=== PATIENT | male | born 1990 | race Caucasian/White ===

== ENCOUNTER 2020-11-10 08:57 | Emergency (ER) | payer MEDICAID, SELFPAY ==
[2020-11-10] VITALS (9 sets, daily range): BP systolic 110–172; BP diastolic 68–100; PULSE 55–92; RESP 12–23; TEMP 35.9–36.9; O2SAT 95–100; BMI 23.5
--- NOTE | ~2020-11-10 | CT_ITS ---
EXAMINATION: CT HEAD WITHOUT CONTRAST CLINICAL INFORMATION: AMS. COMPARISON: None TECHNIQUE: Contiguous axial imaging was performed from the skull base to vertex without intravenous administration of contrast. This CT examination was performed using dose optimization techniques as appropriate, variously including the following: *Automated exposure control *Adjustment of mA and/or kV according to patient size (this includes techniques or standardized protocols for targeted exams where dose is matched to indication/reason for exam; i.e. extremities or head) *Use of iterative reconstruction technique DLP: 745 mGy-cm FINDINGS: There is no evidence of acute intracranial hemorrhage or territorial infarction. No abnormal mass effect or midline shift is seen. [place] to white matter differentiation is well preserved. No extra-axial fluid collections are identified. The ventricles are normal in size. There is no abnormal attenuation within the brain parenchyma. The osseous structures and soft tissues are normal. The mastoid air cells and visualized portions of the paranasal sinuses are well aerated. CT/CT head/brain wo con IMPRESSION: No acute intracranial process seen.
--- NOTE | 2020-11-10 09:01 | ED_ITS ---
HPI - Altered Mental Status General Chief Complaint: General Medical Stated Complaint: altered mental status Time Seen by Provider: 11/10/20 09:01 Source: EMS Mode of arrival: EMS Limitations: altered mental status History of Present Illness HPI narrative: found him outside on a park bench with a crack pipe, significant movements, given 320mg IM ketamine for these movements not aggression MD complaint: altered mental status and intoxication Onset (ago): unknown Severity: moderate Consistency of symptoms: unknown Context: drug abuse Associated symptoms: denies other symptoms Treatments prior to arrival: other (IM ketamine 320mg) Related Data Allergies Allergy/AdvReac Type Severity Reaction Status Date / Time No Known Allergies Allergy Unverified 12/03/19 17:24 Review of Systems Review of Systems: ROS unable to be obtained due to altered mental status PMFSH Past Medical History Source: unable to obtain (AMS) Social History Social History (Updated 11/10/20 @ 09:17 by Khushbu Flynn DO) Patient Tobacco Use Status: Tobacco use Unknown Substance Use Type: Crack/Cocaine Advance Directives: No Advance Directives Information Provided: No Physical Exam Vital Signs: Vital Signs: Last Vital Signs Temp 96.6 F L 11/10/20 09:11 Pulse 55 11/10/20 12:23 Resp 15 11/10/20 12:23 BP 110/68 11/10/20 10:11 Pulse Ox 98 11/10/20 10:11 Body Mass Index 23.5 Appearance: Somnolent, disoriented. responds to loud verbal and tactile stimuli. Mild acute distress. Eyes: Pupils equal, round and reactive to light. 4mm ENT: Pharynx normal. Atraumatic Neck: Normal inspection. Neck supple. CVS: tachycardic. Pulses normal. Respiratory: No respiratory distress. Breath sounds normal. Abdomen: Soft and nontender. no trauma Skin: Skin warm and dry. Normal skin color. Extremities: No lower extremity edema. Neuro: disoriented, protecting airway, picking at the air. No motor deficit. No sensory deficit. Course Course Course Narrative: starting to wake up more to stimuli, continues to have stable VS, will continue to monitor until he wakes up. Sister at bedside and aware of the plan signed out to Dr. Heard pending clinical sobriety MDM - Altered Mental Status MDM Narrative Medical decision making narrative: 30 yo male with possible crack abuse found sitting on a bench with a crack pipe, had abnormal movements in ambulance given ketamine 320mg - at this time will need labs, CT head for trauma, IM ativan given the ketamine and crack use and he appears over stimulated, UA, dispo per results and clinical improvement Lab Data Result diagrams: 11/10/20 09:39 11/10/20 09:39 Labs: Lab Results 11/10/20 11/10/20 11/10/20 Range/Units 09:32 09:39 09:39 WBC 6.8 (4.8-10.8) X10*3/uL RBC 5.19 (4.60-5.80) X10*6/uL Hgb 15.5 (14.0-18.0) g/dl Hct 46.1 (42-52) % MCV 88.8 (80-98) fL MCH 29.9 (27.0-33.0) pg MCHC 33.6 (31.0-36.0) g/dl RDW 12.0 (11.0-16.0) % Plt Count 344 (160-400) X10*3/uL MPV 8.7 L (9.4-12.4) fL Immature Gran % (Auto) 0.1 (0.0-0.4) % Neut % (Auto) 65.5 (45-73) % Lymph % (Auto) 25.1 (20-40) % Edwards % (Auto) 8.6 (2-11) % Eos % (Auto) 0.3 (0-4) % Baso % (Auto) 0.4 (0-2) % Lymph # (Auto) 1.7 (1.2-4.9) X10*3/uL Edwards # (Auto) 0.6 (0.1-1.2) X10*3/uL Eos # (Auto) 0.0 (0.0-0.4) X10*3/uL Baso # (Auto) 0.0 (0.0-0.2) X10*3/uL Abs Immat Gran (auto) 0.01 (0.00-0.03) X10*3/uL Absolute Neuts (auto) 4.5 (2.0-8.3) X10*3/uL Absolute Nucleated RBC 0.000 (0.0-0.012) X10*3/uL Nucleated RBC % (auto) 0.0 (0.0-0.2) /100WBC Sodium Cancelled Potassium Cancelled Chloride Cancelled Carbon Dioxide Cancelled Anion Gap Cancelled BUN Cancelled Creatinine Cancelled Estim Creat Clear Calc Cancelled Estimated GFR Cancelled POC Glucose (60-115) mg/dL Random Glucose Cancelled Calcium Cancelled Magnesium (1.6-2.6) mg/dL Total Bilirubin (0.0-1.0) mg/dL Direct Bilirubin (0.0-0.5) mg/dL AST (5-37) U/L ALT (0-40) U/L Alkaline Phosphatase (39-117) U/L Total Protein (6.5-8.0) g/dL Albumin (3.5-5.0) g/dL Urine Color Urine Appearance Urine pH (5.0-8.0) Ur Specific [place] (1.005-1.025) Urine Protein (NEG-TRACE) MG/DL Urine Glucose (UA) (NEG) MG/DL Urine Ketones (NEG) MG/DL Urine Blood (NEG) Urine Nitrite (NEG) Ur Leukocyte Esterase (NEG) Urine RBC (0) /HPF Urine WBC (0-4) /HPF Ur Squamous Epith Cells /LPF Urine Bacteria /LPF Urine Opiates Screen (Not Detect) Urine Fentanyl Screen (Not Detect) Ur Barbiturates Screen (Not Detect) Ur Phencyclidine Scrn (Not Detect) Ur Amphetamines Screen (Not Detect) U Benzodiazepines Scrn (Not Detect) Urine Cocaine Screen (Not Detect) U Marijuana (THC) Screen (Not Detect) Ethyl Alcohol mg/dL COVID-19 (SILVIA) Negative (Negative) COVID-19 Clin Com See Note 11/10/20 11/10/20 11/10/20 Range/Units 09:39 09:39 10:37 WBC (4.8-10.8) X10*3/uL RBC (4.60-5.80) X10*6/uL Hgb (14.0-18.0) g/dl Hct (42-52) % MCV (80-98) fL MCH (27.0-33.0) pg MCHC (31.0-36.0) g/dl RDW (11.0-16.0) % Plt Count (160-400) X10*3/uL MPV (9.4-12.4) fL Immature Gran % (Auto) (0.0-0.4) % Neut % (Auto) (45-73) % Lymph % (Auto) (20-40) % Edwards % (Auto) (2-11) % Eos % (Auto) (0-4) % Baso % (Auto) (0-2) % Lymph # (Auto) (1.2-4.9) X10*3/uL Edwards # (Auto) (0.1-1.2) X10*3/uL Eos # (Auto) (0.0-0.4) X10*3/uL Baso # (Auto) (0.0-0.2) X10*3/uL Abs Immat Gran (auto) (0.00-0.03) X10*3/uL Absolute Neuts (auto) (2.0-8.3) X10*3/uL Absolute Nucleated RBC (0.0-0.012) X10*3/uL Nucleated RBC % (auto) (0.0-0.2) /100WBC Sodium 139 Potassium 4.4 Chloride 106 Carbon Dioxide 24 Anion Gap 13 BUN 9 Creatinine 0.94 Estim Creat Clear Calc 105.4 Estimated GFR > 60 POC Glucose (60-115) mg/dL Random Glucose 93 Calcium 9.5 Magnesium 2.6 (1.6-2.6) mg/dL Total Bilirubin 0.5 (0.0-1.0) mg/dL Direct Bilirubin < 0.2 (0.0-0.5) mg/dL AST 43 H (5-37) U/L ALT 32 (0-40) U/L Alkaline Phosphatase 86 (39-117) U/L Total Protein 7.6 (6.5-8.0) g/dL Albumin 4.3 (3.5-5.0) g/dL Urine Color Urine Appearance Urine pH (5.0-8.0) Ur Specific [place] (1.005-1.025) Urine Protein (NEG-TRACE) MG/DL Urine Glucose (UA) (NEG) MG/DL Urine Ketones (NEG) MG/DL Urine Blood (NEG) Urine Nitrite (NEG) Ur Leukocyte Esterase (NEG) Urine RBC (0) /HPF Urine WBC (0-4) /HPF Ur Squamous Epith Cells /LPF Urine Bacteria /LPF Urine Opiates Screen POSITIVE H (Not Detect) Urine Fentanyl Screen POSITIVE H (Not Detect) Ur Barbiturates Screen Not Detected (Not Detect) Ur Phencyclidine Scrn Not Detected (Not Detect) Ur Amphetamines Screen Not Detected (Not Detect) U Benzodiazepines Scrn Not Detected (Not Detect) Urine Cocaine Screen POSITIVE H (Not Detect) U Marijuana (THC) Screen Not Detected (Not Detect) Ethyl Alcohol < 10 mg/dL COVID-19 (SILVIA) (Negative) COVID-19 Clin Com 11/10/20 11/10/20 Range/Units 10:38 12:28 WBC (4.8-10.8) X10*3/uL RBC (4.60-5.80) X10*6/uL Hgb (14.0-18.0) g/dl Hct (42-52) % MCV (80-98) fL MCH (27.0-33.0) pg MCHC (31.0-36.0) g/dl RDW (11.0-16.0) % Plt Count (160-400) X10*3/uL MPV (9.4-12.4) fL Immature Gran % (Auto) (0.0-0.4) % Neut % (Auto) (45-73) % Lymph % (Auto) (20-40) % Edwards % (Auto) (2-11) % Eos % (Auto) (0-4) % Baso % (Auto) (0-2) % Lymph # (Auto) (1.2-4.9) X10*3/uL Edwards # (Auto) (0.1-1.2) X10*3/uL Eos # (Auto) (0.0-0.4) X10*3/uL Baso # (Auto) (0.0-0.2) X10*3/uL Abs Immat Gran (auto) (0.00-0.03) X10*3/uL Absolute Neuts (auto) (2.0-8.3) X10*3/uL Absolute Nucleated RBC (0.0-0.012) X10*3/uL Nucleated RBC % (auto) (0.0-0.2) /100WBC Sodium Potassium Chloride Carbon Dioxide Anion Gap BUN Creatinine Estim Creat Clear Calc Estimated GFR POC Glucose 83 (60-115) mg/dL Random Glucose Calcium Magnesium (1.6-2.6) mg/dL Total Bilirubin (0.0-1.0) mg/dL Direct Bilirubin (0.0-0.5) mg/dL AST (5-37) U/L ALT (0-40) U/L Alkaline Phosphatase (39-117) U/L Total Protein (6.5-8.0) g/dL Albumin (3.5-5.0) g/dL Urine Color YELLOW Urine Appearance CLEAR Urine pH 6.5 (5.0-8.0) Ur Specific [place] 1.020 (1.005-1.025) Urine Protein NEG (NEG-TRACE) MG/DL Urine Glucose (UA) NEG (NEG) MG/DL Urine Ketones NEG (NEG) MG/DL Urine Blood 3+ H (NEG) Urine Nitrite NEG (NEG) Ur Leukocyte Esterase NEG (NEG) Urine RBC 15-29 H (0) /HPF Urine WBC 1-4 (0-4) /HPF Ur Squamous Epith Cells NONE /LPF Urine Bacteria NONE /LPF Urine Opiates Screen (Not Detect) Urine Fentanyl Screen (Not Detect) Ur Barbiturates Screen (Not Detect) Ur Phencyclidine Scrn (Not Detect) Ur Amphetamines Screen (Not Detect) U Benzodiazepines Scrn (Not Detect) Urine Cocaine Screen (Not Detect) U Marijuana (THC) Screen (Not Detect) Ethyl Alcohol mg/dL COVID-19 (SILVIA) (Negative) COVID-19 Clin Com ECG Data ECG #1: Attestation: I personally reviewed and interpreted this ECG as follows: ECG interpretation date: 11/10/20 ECG interpretation time: 10:08 Interpretation: Rate: 79 Rhythm: NSR [place]: normal Normal P waves. Normal [place]. Normal QRS complex. ST T wave : normal no RICH qTC: normal prior studies: normal The study has been interpreted contemporaneously by me. . Discharge Plan Discharge Clinical Impression: Opiate abuse, continuous, Cocaine abuse
--- NOTE | 2020-11-10 09:15 | ECG_ITS ---
Test Reason : AMS Blood Pressure : / mmHG Vent. Rate : 079 BPM Atrial Rate : 079 BPM P-R Int : 150 ms QRS Dur : 090 ms QT Int : 392 ms P-R-T Axes : 069 082 041 degrees QTc Int : 449 ms Normal sinus rhythm Normal ECG When compared with ECG of 15-SEP-2014 00:17, QT has lengthened Referred By: Khushbu Flynn Electronically Signed By:MIGNON VAZQUEZ
--- NOTE | 2020-11-10 09:15 | PC.NURSE ---
SECURITY ASSISTED WITH JOINT MAKER MACHINE. BELONGINGS PLACED IN DECON.
[2020-11-10] MEDS: LORazepam 2 MG/ML VIAL IM (09:25)
--- NOTE | 2020-11-10 09:30 | PC.NURSE ---
pt on arrival appear alert to painful stimuli, resp even and unlabored, pupils pinpoint.
[2020-11-10] MEDS: 0.9 % Sodium Chloride 1,000 ML 999 ML IV (09:46)
[2020-11-10 09:48] LABS: MANUAL DIFF FLAG NO
[2020-11-10 09:50] LABS: Basophils Percent Auto 0.4 % (0-2); Eosinophils Percent Auto 0.3 % (0-4); Hematocrit 46.1 % (42-52); Hemoglobin 15.5 g/dl (14.0-18.0); Imm Gran Abs Auto 0.01 X10*3/uL (0.00-0.03); Imm Gran Pct Auto 0.1 % (0.0-0.4); Lymphocytes Absolute Auto 1.7 X10*3/uL (1.2-4.9); Lymphocytes Percent Auto 25.1 % (20-40); Mean Corpuscular HGB Conc 33.6 g/dl (31.0-36.0); Mean Corpuscular Hemoglobin 29.9 pg (27.0-33.0); Mean Corpuscular Volume 88.8 fL (80-98); Mean Platelet Volume 8.7 fL (9.4-12.4); Monocytes Absolute Auto 0.6 X10*3/uL (0.1-1.2); Monocytes Percent Auto 8.6 % (2-11); Neutrophils Absolute Auto 4.5 X10*3/uL (2.0-8.3); Neutrophils Percent Auto 65.5 % (45-73); Platelet Count 344 X10*3/uL (160-400); Red Blood Count 5.19 X10*6/uL (4.60-5.80); White Blood Count 6.8 X10*3/uL (4.8-10.8)
[2020-11-10 10:05] LABS: COVID-19 Test Negative (Negative); IDNOW Serial# 9DD0AD1C
[2020-11-10 10:15] LABS: Ethanol < 10 mg/dL
[2020-11-10 10:19] LABS: Alanine Aminotransferase 32 U/L (0-40); Albumin Level 4.3 g/dL (3.5-5.0); Alkaline Phosphatase 86 U/L (39-117); Anion Gap 13 (12-20); Aspartate Amino Transferase 43 U/L (5-37); Bilirubin Direct < 0.2 mg/dL (0.0-0.5); Bilirubin Total 0.5 mg/dL (0.0-1.0); Blood Urea Nitrogen 9 mg/dL (9-16); Calcium 9.5 mg/dL (8.4-10.2); Carbon Dioxide 24 mmol/L (22-29); Chloride 106 mmol/L (96-108); Creatinine Clr Calc Pharmacy 105.4; Estimated Glomerular Filt Rate > 60; Glucose Random 93 mg/dL (60-115); Magnesium 2.6 mg/dL (1.6-2.6); Potassium 4.4 mmol/L (3.3-5.1); Sodium 139 mmol/L (135-145); Total Protein 7.6 g/dL (6.5-8.0)
[2020-11-10] MEDS: ondansetron HCL 4 MG/2 ML VIAL IVPUSH (10:23)
[2020-11-10 10:46] LABS: Glucose Urine UA NEG (NEG); Leukocyte Esterase Urine NEG (NEG); Nitrite Urine NEG (NEG); PH 6.5 (5.0-8.0); UACC Culture Trigger NO; Urine Blood 3+ (NEG); Urine Ketones NEG (NEG); Urine Protein NEG (NEG-TRACE)
[2020-11-10 10:49] LABS: Appearance Urine CLEAR; Color Urine YELLOW
[2020-11-10 11:09] LABS: Amphetamine Screen Urine Not Detected (Not Detect); Barbiturates, Urine Not Detected (Not Detect); Benzodiazepines Screen Urine Not Detected (Not Detect); Cannabinoid Screen Urine Not Detected (Not Detect); Cocaine Screen Urine POSITIVE (Not Detect); Fentanyl, urine POSITIVE (Not Detect); Opiate Screen Urine POSITIVE (Not Detect); Phencyclidine Screen Urine Not Detected (Not Detect)
--- NOTE | 2020-11-10 12:25 | PC.NURSE ---
sister at bedside, requesting update.
[2020-11-10 12:32] LABS: Glucose, Whole Blood 83 mg/dL (60-115)
--- NOTE | 2020-11-10 15:18 | PC.NURSE ---
pt awoke for a brief minute, he stretched out and has since gone back to sleeping.
--- NOTE | 2020-11-10 16:53 | PC.NURSE ---
pt woke, requesting bathroom. he was very active according to the PCT, agitated in his tone, demanding food. when pt got back into bed he fell right back asleep .
[2020-11-10 16:57] LABS: Glucose, Whole Blood 70 mg/dL (60-115)
[2020-11-10 17:39] LABS: Glucose, Whole Blood 76 mg/dL (60-115)
[2020-11-10 18:19] LABS: Glucose, Whole Blood 85 mg/dL (60-115)
[2020-11-10 18:45] LABS: Glucose, Whole Blood 84 mg/dL (60-115)
--- NOTE | 2020-11-10 19:10 | PC.NURSE ---
pt continues to sleep. monitoring POC as no PMHx available. last POC 84. Pt wakes briefly to being touched/shook then quickly returns to sleep.
[2020-11-10 19:29] LABS: Glucose, Whole Blood 80 mg/dL (60-115)
--- NOTE | 2020-11-10 21:11 | PC.NURSE ---
discontinue POC Q30 min, last POC 91. pt continues to sleep. wakes to being shook//touched briefly.
[2020-11-10 21:12] LABS: Glucose, Whole Blood 91 mg/dL (60-115)
[2020-11-11] VITALS (7 sets, daily range): BP systolic 126–139; BP diastolic 70–78; PULSE 81–83; RESP 16–20; TEMP 37.1–37.2; O2SAT 98–99
[2020-11-11] MEDS: ondansetron HCL 4 MG/2 ML VIAL IVPUSH (00:14)
--- NOTE | 2020-11-11 00:17 | PC.NURSE ---
pt vomited at bedside. pt is arrousable to verbal stimuli.
--- NOTE | 2020-11-11 00:57 | PC.NURSE ---
pt sleeping and arrousable vitals stable, multiple staff requested pt to give a urine sample and he denied, pt states he cant go and will not give a sample. pt was asked to ambulate and denied yet was seen ambulating in his room. Security called and pt ambulated to the next room and then grabbed on to the curtains and stated he is feeling drug sick. this rn walked with the pt and lighty placed my hand under his arm to support his if he needed and pt was walking on his own power. pt is uncooperative with staff and refused straight cath and urine collection. . pt then up and walked to the recliner with a quick stride and a steady gait. pt did not demonstrait any difficutly walking. pt states he is not homeless but only wants to sleep at this time.
--- NOTE | 2020-11-11 05:48 | PC.NURSE ---
pt would like to talk with the care team for detox.
--- NOTE | 2020-11-11 08:17 | MHC.RECOVSUP ---
Addendum entered by Kvng Maxwell [facility] 11/11/20 08:18: Recovery Support note: Patient is a 30 yea rold male wh Original Note: Recovery Support note: Patient is a 30 year old male who presented to [facility] [place] via EMS after being found in the community under the influence ofsub
--- NOTE | 2020-11-11 08:19 | MHC.RECOVSUP ---
Recovery Support note: Patient is a 30 year old male who presented to [facility] via EMS on 11/10 after being found in the community under the influence of substances. Patient was given ketamine by EMS because he was unable to remain still. Patient has been calm and cooperative while in the emergency department. Patient reported to ED staff that he is interested in going to detox. This junior technical writer met with patient to discuss his substance use and treatment options. Patient is resting comfortable in a hospital bed at this time. Patient awoke to discuss his substance use. Patient reports using a lot and specified that he uses at least one bundle a day of heroin. Patient tested positive for opiates, fentanyl and cocaine. Patient continues to reports interest in going to detox, stating that he has never been before but that he knows what to expect and he is willing to go anywhere to get help. This junior technical writer will refer patient to [facility] facilities for detox treatment.
--- NOTE | 2020-11-11 09:40 | PC.NURSE ---
vomiting x 1 refused zofran
[2020-11-11] MEDS: Buprenorphine/Naloxone 2/0.5mg FILM 1 FILM SUBLINGUAL (10:02)
== END 2020-11-11 11:47 | disposition home or self-care (01) ==
PROVIDERS: Emergency Medicine; Emergency Provider Emergency Medicine
DX: F11.10 Opioid abuse, uncomplicated (principal); F14.10 Cocaine abuse, uncomplicated; Z20.822 Contact with and (suspected) exposure to COVID-19
CPT/HCPCS: 36415; 70450; 80048; 80076; 80307; 81001; 82077; 82947; 83735; 85025; 87635; 93005; 96361; 96372; 96374; 96376; 99285; J2060; J2405

== ENCOUNTER 2021-03-13 23:42 | Inpatient (IN) | payer MEDICAID, SELFPAY ==
--- NOTE | ~2021-03-13 | XR_ITS ---
EXAMINATION: RADIOGRAPH OF THE LEFT WRIST/HAND CLINICAL INFORMATION: Pain and decreased range of motion. COMPARISON: None. TECHNIQUE: 4 views of the left wrist/hand were obtained. FINDINGS: Remote postoperative changes of the fourth digit with ankylosis of the distal interphalangeal joint and a vertically oriented cannulated screw. No acute fractures or malalignment. Carpal rows and scapholunate interval are maintained. No unexpected radiopaque foreign bodies. XR/XR hand wrist LT IMPRESSION: No acute fractures or malalignment. Chronic postoperative changes in the fourth digit. If pain persists, consider an interval image as early nondisplaced fractures can be radiographically occult.
--- NOTE | 2021-03-13 23:55 | ED_ITS ---
HPI - Altered Mental Status General Chief Complaint: ETOH/Substance Use <Jorge Wright MD - Last Filed: 03/14/21 19:16> Stated Complaint: Psych <Jorge Wright MD - Last Filed: 03/14/21 19:16> Time Seen by Provider: 03/13/21 23:46 <Jorge Wright MD - Last Filed: 03/14/21 19:16> Source: patient <Jorge Wright MD - Last Filed: 03/14/21 19:16> Mode of arrival: EMS <Jorge Wright MD - Last Filed: 03/14/21 19:16> Limitations: altered mental status <Jorge Wright MD - Last Filed: 03/14/21 19:16> History of Present Illness HPI narrative: 30-year-old male who presents emergency department for evaluation of bad reaction secondary to heroin. Patient states that earlier in the day he use some bad heroin. He states that he now cannot control himself. The patient is agitated, he is not able to lie still, he has very unusual movements of his facial muscles, his upper and lower extremities. He has a diffuse erythematous rash on his arms, chest abdomen and legs. He was able to tell me his name but was not able to give more history secondary to his agitation. The patient was seen in the emergency department on 11/11/2020. According to that record he was found outside on a park bench with a crack pipe and significant movement. He was given ketamine 320 mg IM for these movements which were not aggressive according to the note. His urine drug screen was positive for opiates, fentanyl and cocaine. <Jorge Wright MD - Last Filed: 03/14/21 19:16> Related Data Allergies/Adverse Reactions: Allergies Allergy/AdvReac Type Severity Reaction Status Date / Time No Known Allergies Allergy Unverified 12/03/19 17:24 <Jorge Wright MD - Last Filed: 03/14/21 19:16> Review of Systems Review of Systems: Yes Unobtainable due to mental status <Jorge Wright MD - Last Filed: 03/14/21 19:16> PMFSH Past Medical History PMFSH Narrative: Past medical history: Polysubstance abuse (opiates, fentanyl, cocaine). <Jorge Wright MD - Last Filed: 03/14/21 19:16> Social History Social History: Social History Alcohol intake: never Patient Tobacco Use Status: Tobacco use Unknown Substance Use Type: Crack/Cocaine, Heroin and Marijuana Advance Directives: No Advance Directives Information Provided: Yes <Jorge Wright MD - Last Filed: 03/14/21 19:16> Physical Exam Vital Signs: Vital Signs: Last Vital Signs Temp 100.7 F H 03/14/21 11:42 Pulse 70 03/14/21 11:42 Resp 16 03/14/21 01:10 BP 113/75 03/14/21 11:42 Pulse Ox 95 03/14/21 11:42 BMI result Body Mass Index 24.3 <Jorge Wright MD - Last Filed: 03/14/21 19:16> Vital Signs: Last Vital Signs Temp 100.7 F H 03/14/21 11:42 Pulse 70 03/14/21 11:42 Resp 16 03/14/21 01:10 BP 113/75 03/14/21 11:42 Pulse Ox 95 03/14/21 11:42 BMI result Body Mass Index 24.3 <SANCHEZ Mendoza - Last Filed: 03/14/21 17:25> Const: Other: Awake, patient, he is extremely agitated and cannot sit or lie still on the stretcher, he is flailing his arms and legs, he has unusual facial tics and movements, he was able to tell me his name. He was able to tell me that he had a bad reaction to heroin <Jorge Wright MD - Last Filed: 03/14/21 19:16> Orientation/consciousness: oriented to person <Jorge Wright MD - Last Filed: 03/14/21 19:16> HENMT: Head: Yes normocephalic and Yes atraumatic <Jorge Wright MD - Last Filed: 03/14/21 19:16> Ears: external ears normal <Jorge Wright MD - Last Filed: 03/14/21 19:16> General nose exam: Normal external nose present <Jorge Wright MD - Last Filed: 03/14/21 19:16> Face and sinus: Yes normal facial exam <Jorge Wright MD - Last Filed: 03/14/21 19:16> Mouth: Normal oral and palatal mucosa present <Jorge Wrgiht MD - Last Filed: 03/14/21 19:16> Throat: Yes posterior oropharynx normal <Jorge Wright MD - Last Filed: 03/14/21 19:16> Eyes: General: appearance normal, both eyes and all related structures <Jorge Wright MD - Last Filed: 03/14/21 19:16> Pupils: Equal, round and reactive pupils present <Jorge Wright MD - Last Filed: 03/14/21 19:16> Neck: Neck: Yes normal visual inspection, Yes no lymphadenopathy, Yes trachea midline and Yes supple <Jorge Wright MD - Last Filed: 03/14/21 19:16> Chest: Chest palpation & inspection: normal inspection of the chest and normal palpation of entire chest wall <Jorge Wright MD - Last Filed: 03/14/21 19:16> Resp: Effort & Inspection: normal respiratory effort and able to speak in complete sentences <Jorge Wright MD - Last Filed: 03/14/21 19:16> Auscultation: clear to auscultation bilaterally <Jorge Wright MD - Last Filed: 03/14/21 19:16> Cardio: Rate: tachycardic <Jorge Wright MD - Last Filed: 03/14/21 19:16> Rhythm: regular rhythm <MD Mely Sanchez Last Filed: 03/14/21 19:16> Heart sounds: S1 normal heart sound present, S2 normal heart sound present and no murmurs <Jorge Wright MD - Last Filed: 03/14/21 19:16> GI: Inspection: Yes normal to inspection <Jorge Wright MD - Last Filed: 03/14/21 19:16> Palpation (GI): Soft to palpation, nontender and no guarding <Jorge Wright MD - Last Filed: 03/14/21 19:16> Auscultation: normal bowel sounds <Jorge Wright MD - Last Filed: 03/14/21 19:16> : General: Yes no CVA tenderness <Jorge Wright MD - Last Filed: 03/14/21 19:16> Back/Spine/Pelvis: Back: no CVA tenderness <Jorge Wright MD - Last Filed: 03/14/21 19:16> Skin: Other: Patient has diffuse erythema of his chest, back, arms and legs. The erythema does oma with pressure. There is no urticaria noted. <Jorge Wright MD - Last Filed: 03/14/21 19:16> Neuro: General: oriented to person <Jorge Wright MD - Last Filed: 03/14/21 19:16> Cranial nerves: Yes CN's II-XII intact bilaterally and Yes Equal, round and reactive pupils present <Jorge Wright MD - Last Filed: 03/14/21 19:16> Cognition (Neuro): normal cognition <Jorge Wright MD - Last Filed: 03/14/21 19:16> Motor exam (neuro): 5/5 motor strength present throughout <Jorge Wright MD - Last Filed: 03/14/21 19:16> Extrem: General: Yes normal to inspection <Jorge Wright MD - Last Filed: 03/14/21 19:16> Psych: Other: Patient is oriented to person and place he is agitated, he has uncontrollable movement of his facial muscles and arms and legs. <Jorge Wright MD - Last Filed: 03/14/21 19:16> Course Course Course Narrative: 30-year-old male who presents emergency department for evaluation of bad reaction to using heroin. The patient may have had a similar presentation on 11/10/2020. The patient has uncontrollable movement of his upper and lower extremities, facial muscles and appears to be very agitated. The patient does have diffuse erythema to his skin with no urticaria. His presentation is consistent with a akathisia which suggests that the drugs that he used may have been contaminated with an antipsychotic or neuroleptic medication. The patient was ordered to get Haldol 10 mg IM, Benadryl 50 mg IM and Ativan 2 mg IM. I ordered a CBC, CMP, CK, urinalysis, urine drug screen, alcohol level. 0200: Start physician observation: The patient is resting comfortably in his room after the above IM medications. The patient's laboratory evaluation is pending. The patient will be placed in physician observation in order to observe him carefully after medication and make sure that does not have recurrence of his adverse reaction. The patient will need to be kept in the Behavioral Pod and a disaster recovery analyst will be consult in the morning to help him with his polysubstance use disorder. The patient's care was turned over to my colleague, Dr. Shanta Nowak. Examination: Patient is sleeping, does not appear to be in distress, his rash is resolved, lungs were clear, heart regular rate rhythm, abdomen soft nontender. Neurologic exam is nonfocal. <Jorge Wright MD - Last Filed: 03/14/21 19:16> Reevaluation(s) Reevaluation #1: Lina Reyes: Patient came in with altered mental status and found to be positive for cocaine, opiates, fentanyl. Patient got chemically restrained. Awaiting disaster recovery analyst . Patient is sleeping currently, not in any distress, lungs clear to auscultation bilaterally, heart regular rate and ryhthm , abdomen soft non- tender, vital signs are stable <SANCHEZ Mendoza - Last Filed: 03/14/21 17:25> MDM - Altered Mental Status Lab Data Labs: Lab Results 03/14/21 Range/Units 00:22 COVID-19 (SILVIA) Negative (Negative) COVID-19 Clin Com See Note <Jorge Wright MD - Last Filed: 03/14/21 19:16> Lab Results 03/14/21 Range/Units 00:22 COVID-19 (SILVIA) Negative (Negative) COVID-19 Clin Com See Note <SANCHEZ Mendoza - Last Filed: 03/14/21 17:25> Discharge Plan Discharge Clinical Impression: Polysubstance abuse <Jorge Wright MD - Last Filed: 03/14/21 19:16>
[2021-03-14] VITALS (10 sets, daily range): BP systolic 113–132; BP diastolic 70–86; PULSE 70–77; RESP 16–22; TEMP 37.4–38.2; O2SAT 95–96; BMI 24.3
--- NOTE | 2021-03-14 | ECG_ITS ---
Test Reason : CLEARANCE Blood Pressure : / mmHG Vent. Rate : 075 BPM Atrial Rate : 075 BPM P-R Int : 136 ms QRS Dur : 092 ms QT Int : 374 ms P-R-T Axes : 067 078 053 degrees QTc Int : 417 ms Normal sinus rhythm with sinus arrhythmia Nonspecific T wave abnormality Abnormal ECG When compared with ECG of 10-NOV-2020 10:07, T wave inversion now evident in Anterior leads Referred By: Jorge Wright Electronically Signed By:Brennan Willoughby
[2021-03-14] MEDS: Haloperidol Lactate 5 MG/ML VIAL 10 MG IM (00:10)
[2021-03-14] MEDS: LORazepam 2 MG/ML VIAL IM (00:10)
[2021-03-14] MEDS: diphenhydrAMINE HCL 50 MG/ML VIAL 25 MG IM ×2 (00:10)
[2021-03-14 00:45] LABS: COVID-19 Test Negative (Negative); IDNOW Serial# 9DD0AD1C
--- NOTE | 2021-03-14 01:30 | PC.NURSE ---
Patient was brought in to ED POD via ambulance at 0005 with erratic behavior, loud, disruptive, [id number], under unknown substance influence, per report patient used bad batch heroin, unable to foreign exchange clerk, provider ordered Haldol 10 mg IM, Ativan 2 mg IM, and Benadryl 50 mg IM administered as ordered at 0010, patient fell asleep at 0030, all lab orders are pending except covid, patient was placed on 1:1 observation from 0010 to 0110, will continue to monitor.
--- NOTE | 2021-03-14 01:37 | PC.NURSE ---
Patient is currently in bed appears sleeping, no distress observed/reported, will continue to monitor
--- NOTE | 2021-03-14 06:30 | PC.NURSE ---
Patient currently sleeping, no distress observed/reported, refinery operator vapor recovery unit consult for the patient, pending labs, pending change booth attendant, patient belongings are in decon, will continue to monitor.
--- NOTE | 2021-03-14 07:27 | PC.NURSE ---
patient appear to remain asleep at present respirations are even and unlabored, paient appears in no distress at present.
--- NOTE | 2021-03-14 11:42 | PC.NURSE ---
client went to bathroom was quite reluctant to following directions when he kept falling asleep on the toilet.
--- NOTE | 2021-03-14 17:06 | HO.SUDE ---
Recovery team attempted to meet with pt to offer support and resources earlier in the day, however pt was not able to engage in the intervention. This commercial real estate underwriter attempted to meet with pt to complete a SUDE. He was sleeping on approach, and awoke to loud verbal stimuli, mumbling hi and that he was doing okay in response to initial questions. He did not respond when asked if he knows where he is or what happened before arriving. This commercial real estate underwriter offered to speak with pt about his substance use and to discuss how we can support him via resources and referrals, however he did not provide any further responses to any questions asked and appeared to have returned to sleep. ED provider Lina BRADFORD updated re: multiple, unsuccessful attempts to speak with pt re: his substance use, which has been identified as the rationale for his continued stay in the emergency department.
[2021-03-14] MEDS: Acetaminophen 325 MG TABLET 650 MG PO (17:32)
[2021-03-14 19:35] LABS: MANUAL DIFF FLAG NO
[2021-03-14 19:36] LABS: Basophils Percent Auto 0.2 % (0-2); Hematocrit 44.4 % (42.0-52.0); Hemoglobin 15.6 g/dl (14.0-18.0); Imm Gran Abs Auto 0.03 X10*3/uL (0.00-0.03); Imm Gran Pct Auto 0.3 % (0.0-0.4); Lymphocytes Absolute Auto 1.1 X10*3/uL (1.2-4.9); Lymphocytes Percent Auto 10.4 % (20-40); Mean Corpuscular HGB Conc 35.1 g/dl (31.0-36.0); Mean Corpuscular Hemoglobin 29.8 pg (27.0-33.0); Mean Corpuscular Volume 84.7 fL (80.0-98.0); Mean Platelet Volume 9.3 fL (9.4-12.4); Monocytes Absolute Auto 0.5 X10*3/uL (0.1-1.2); Monocytes Percent Auto 5.2 % (2-11); Neutrophils Absolute Auto 8.8 x10*3/uL (2.0-8.3); Neutrophils Percent Auto 83.9 % (45-73); Platelet Count 316 X10*3/uL (160-400); Red Blood Count 5.24 X10*6/uL (4.60-5.80); Red Cell Distribution Width 12.6 % (11.0-16.0); White Blood Count 10.5 X10*3/uL (4.8-10.8)
[2021-03-14 19:52] LABS: Ethanol < 10 mg/dL
[2021-03-14 20:09] LABS: Anion Gap 12 (12-20); Blood Urea Nitrogen 14 mg/dL (9-16); Calcium 9.5 mg/dL (8.4-10.2); Carbon Dioxide 28 mmol/L (22-29); Chloride 99 mmol/L (96-108); Creatinine Clr Calc Pharmacy 84.1; Estimated Glomerular Filt Rate > 60; Glucose Random 203 mg/dL (60-115); Potassium 3.9 mmol/L (3.3-5.1); Sodium 135 mmol/L (135-145)
--- NOTE | 2021-03-14 21:08 | MHC.RECOVSUP ---
? Reason for consult: Recovery Support Team o ? ? ?Current location: ?[facility] o ? ? ?Identified substance use concern: ?Heroine - Seeking ATS (detox) - Support ? ?Intervention: o Community resources provided o Harm reduction discussion ? Plan: o Bed search in progress to [facility] o Follow up tomorrow ? ? Additional information: I was able to connect with pt and suggest detox, pt agreed. I reached out to [facility] and left several messages. Care Team was notified. ?
--- NOTE | 2021-03-14 21:30 | PC.NURSE ---
[place] [address] [place], urine sample obtained for UA and FRANCIS, employment coach detox bed search on hold, patient alert and oriented x 4.
[2021-03-14 21:35] LABS: Appearance Urine CLEAR; Color Urine YELLOW; Glucose Urine UA NEG (NEG); Leukocyte Esterase Urine NEG (NEG); Nitrite Urine NEG (NEG); PH 6.5 (5.0-8.0); Specific Gravity - Urine 1.025 (1.005-1.025); UACC Culture Trigger NO; Urine Blood 1+ (NEG); Urine Ketones >=80 MG/DL (NEG); Urine Protein TRACE MG/DL (NEG-TRACE)
[2021-03-14 21:45] LABS: RBC Urine 0-2 /HPF (0); Squamous Epithelial Cell Urine 1+ /LPF; WBC Urine 0 /HPF (0-4)
[2021-03-14 21:50] LABS: Amphetamine Screen Urine Not Detected (Not Detect); Barbiturates, Urine Not Detected (Not Detect); Benzodiazepines Screen Urine Not Detected (Not Detect); Cannabinoid Screen Urine Not Detected (Not Detect); Cocaine Screen Urine POSITIVE (Not Detect); Fentanyl, urine POSITIVE (Not Detect); Opiate Screen Urine POSITIVE (Not Detect); Phencyclidine Screen Urine Not Detected (Not Detect)
[2021-03-14] MEDS: 0.9 % Sodium Chloride 1,000 ML 999 ML IV ×2 (21:55→21:56)
--- NOTE | 2021-03-14 22:00 | PHA.MEDREC ---
Pharmacy Consult ? Medication Reconciliation Pharmacy has completed the medication reconciliation. No remarkable issues. Lucy Hui RP
[2021-03-14 22:04] LABS: Lactic Acid 0.9 mmol/L (0.5-2.0)
--- NOTE | 2021-03-14 22:06 | MHC.CARE ---
Pt has been medically admitted. Detox placement search is halted at this time.
--- NOTE | 2021-03-14 22:06 | PC.NURSE ---
Pt lethargic but arousable on stretcher, oriented while awake. Pt PIV established, labs drawn and sent for processing, pt medicated per MAY. Pharmacy at bedside to perform med rec. Pt pending admission for elevated CPK. Pt stretcher in low locked position, rails raised, call ford within reach. Pt with sitter outside of room.
[2021-03-14 22:08] LABS: Alanine Aminotransferase 76 U/L (0-40); Albumin Level 4.2 g/dL (3.5-5.0); Alkaline Phosphatase 82 U/L (39-117); Aspartate Amino Transferase 209 U/L (5-37); Bilirubin Direct 0.4 mg/dL (0.0-0.5); Total Protein 7.3 g/dL (6.5-8.0)
--- NOTE | 2021-03-14 23:21 | PC.NURSE ---
This RN to bedside for bladder scan, 435ml in bladder. Yoni aware, plan for possible galvan if pt does not urinate within hour. Pt offered to urinate at this time, states no, I'm too tired before returning to sleep. Stretcher low locked, rail raised, sitter at bedside.
--- NOTE | 2021-03-14 23:44 | P.HPHOSP_ITS ---
History of Present Illness Date of Service: 03/14/21 Chief Complaint: substance abuse this is a 31-year-old male with history of polysubstance abuse who initially presented to the hospital on 03/13 with reports of taking bad heroin . initially patient had presented with involuntary movements, agitation and st ating that he had allergic reaction. At the time of presentation on the , patient had refused blood work at that time and he was placed in the U pod for placement. Today patient agreed to blood work for medical clearance and was found to have CPK level 11,414. no significant other blood of abnormality at this time, with BUN of 14 and creatinine of 1.26 baseline around 0.94 from 11/10. on my attempt to interview the patient, patient is sleeping, wakes up to answer 1 word answers but goes back to sleep, he denies having any chest pain, no shortness of breath, no abdominal pain nausea or vomiting, no diarrhea constipation, no urinary symptoms, he is not telling me why he came into the hospital or what happened. Patient started on IV fluids and will be admitted to the general medical floor Review of Systems Review of Systems: Yes all other systems are reviewed and are negative [facility] Medical History Polysubstance abuse Pertinent family history: patient denies any family history, no history of coronary artery disease Surgical History No pertinent past surgical history Social History Alcohol intake: never Patient Tobacco Use Status: Tobacco use Unknown Substance Use Type: Crack/Cocaine, Heroin and Marijuana Advance Directives: No Advance Directives Information Provided: Yes Meds Allergies Allergy/AdvReac Type Severity Reaction Status Date / Time No Known Allergies Allergy Verified 03/14/21 21:42 Active Medications: Current Medications Acetaminophen (Acetaminophen 325 Mg Tablet) 650 mg PO Q6H PRN PRN Reason: Pain, Mild (Pain Scale 1-3) Buprenorphine/Naloxone (Buprenorphine/Naloxone 8/2 Mg Film) film SUBLINGUAL DAILY SHEKHAR Docusate Sodium (Docusate Sodium 100 Mg Capsule) 100 mg PO DAILY PRN PRN Reason: Constipation Enoxaparin Sodium (Enoxaparin Sodium 40 Mg/0.4 Ml Syringe) 40 mg SUBCUT Q24H [facility] Lactated Ringer's (Lr) 1,000 mls @ 150 mls/hr IVCONT .Q6H40M [facility] Ondansetron HCl (Ondansetron Hcl 4 Mg/2 Ml Vial) 4 mg IVPUSH Q8H PRN PRN Reason: Nausea and Vomiting Pharmacy Consult (Consult Rx Perform Med Rec) 1 each MISCELLANE ONCE PRN PRN Reason: Consult order Sodium Chloride (0.9 % Sodium Chloride Flush 3 Ml Syringe) 3 ml IVFLUSH QSHIFT [facility] Home Medications Medication Instructions Recorded Confirmed Last Taken Type buprenorphine 8 mg-naloxone 2 mg 2 strip SUBLINGUAL DAILY 03/14/21 03/14/21 Unknown History sublingual film (Suboxone) Physical Exam Vital Signs and Narrative: Vital Signs: Last Vital Signs Temp 99.9 F 03/14/21 21:49 Pulse 77 03/14/21 23:22 Resp 22 H 03/14/21 23:22 BP 118/70 03/14/21 23:22 Pulse Ox 96 03/14/21 23:22 BMI result Body Mass Index 24.3 Const: Other: patient is not cooperating, General: no acute distress Eyes: General: appearance normal, both eyes and all related structures Resp: Effort & Inspection: normal respiratory effort Auscultation: clear to auscultation bilaterally Cardio: Rate: regular rate Rhythm: regular rhythm GI: Palpation (GI): Soft to palpation Auscultation: normal bowel sounds Skin: General skin exam: no rashes or lesions noted Neuro: Other: unable to assess as patient Extrem: General: Yes normal to inspection and Yes no pedal edema Results Labs CBC and Chem 7: 03/14/21 19:31 03/14/21 19:31 Labs: Laboratory Results - last 24 hr 03/14/21 03/14/21 03/14/21 00:22 19:31 19:31 MCV 84.7 MCH 29.8 MCHC 35.1 RDW 12.6 Plt Count 316 MPV 9.3 L Immature Gran % (Auto) 0.3 Neut % (Auto) 83.9 H Lymph % (Auto) 10.4 L [place] % (Auto) 5.2 Eos % (Auto) 0.0 Baso % (Auto) 0.2 Lymph # (Auto) 1.1 L [place] # (Auto) 0.5 Eos # (Auto) 0.0 Baso # (Auto) 0.0 Abs Immat Gran (auto) 0.03 Absolute Neuts (auto) 8.8 H Absolute Nucleated RBC 0.000 Nucleated RBC % (auto) 0.0 Anion Gap 12 Estim Creat Clear Calc 84.1 Estimated GFR > 60 Random Glucose 203 H D Lactic Acid Calcium 9.5 Total Bilirubin 1.0 Direct Bilirubin 0.4 AST 209 H ALT 76 H Alkaline Phosphatase 82 Total Creatine Kinase 20717 H Total Protein 7.3 Albumin 4.2 Urine Color Urine Appearance Urine pH Ur Specific [place] Urine Protein Urine Glucose (UA) Urine Ketones Urine Blood Urine Nitrite Ur Leukocyte Esterase Urine RBC Urine WBC Ur Squamous Epith Cells Urine Bacteria Urine Opiates Screen Urine Fentanyl Screen Ur Barbiturates Screen Ur Phencyclidine Scrn Ur Amphetamines Screen U Benzodiazepines Scrn Urine Cocaine Screen U Marijuana (THC) Screen Ethyl Alcohol COVID-19 ([facility]IL[facility]IA) Negative COVID-19 Clin Com See Note 03/14/21 03/14/21 03/14/21 19:31 21:28 21:44 MCV MCH MCHC RDW Plt Count MPV Immature Gran % (Auto) Neut % (Auto) Lymph % (Auto) [place] % (Auto) Eos % (Auto) Baso % (Auto) Lymph # (Auto) [place] # (Auto) Eos # (Auto) Baso # (Auto) Abs Immat Gran (auto) Absolute Neuts (auto) Absolute Nucleated RBC Nucleated RBC % (auto) Anion Gap Estim Creat Clear Calc Estimated GFR Random Glucose Lactic Acid 0.9 Calcium Total Bilirubin Direct Bilirubin AST ALT Alkaline Phosphatase Total Creatine Kinase Total Protein Albumin Urine Color YELLOW Urine Appearance CLEAR Urine pH 6.5 Ur Specific [place] 1.025 Urine Protein TRACE Urine Glucose (UA) NEG Urine Ketones >=80 Urine Blood 1+ H Urine Nitrite NEG Ur Leukocyte Esterase NEG Urine RBC 0-2 Urine WBC 0 Ur Squamous Epith Cells 1+ Urine Bacteria NONE Urine Opiates Screen Urine Fentanyl Screen Ur Barbiturates Screen Ur Phencyclidine Scrn Ur Amphetamines Screen U Benzodiazepines Scrn Urine Cocaine Screen U Marijuana (THC) Screen Ethyl Alcohol < 10 COVID-19 ([facility]) COVID-19 Clin Com 03/14/21 Unknown MCV MCH MCHC RDW Plt Count MPV Immature Gran % (Auto) Neut % (Auto) Lymph % (Auto) [place] % (Auto) Eos % (Auto) Baso % (Auto) Lymph # (Auto) [place] # (Auto) Eos # (Auto) Baso # (Auto) Abs Immat Gran (auto) Absolute Neuts (auto) Absolute Nucleated RBC Nucleated RBC % (auto) Anion Gap Estim Creat Clear Calc Estimated GFR Random Glucose Lactic Acid Calcium Total Bilirubin Direct Bilirubin AST ALT Alkaline Phosphatase Total Creatine Kinase Total Protein Albumin Urine Color Urine Appearance Urine pH Ur Specific [place] Urine Protein Urine Glucose (UA) Urine Ketones Urine Blood Urine Nitrite Ur Leukocyte Esterase Urine RBC Urine WBC Ur Squamous Epith Cells Urine Bacteria Urine Opiates Screen POSITIVE H Urine Fentanyl Screen POSITIVE H Ur Barbiturates Screen Not Detected Ur Phencyclidine Scrn Not Detected Ur Amphetamines Screen Not Detected U Benzodiazepines Scrn Not Detected Urine Cocaine Screen POSITIVE H U Marijuana (THC) Screen Not Detected Ethyl Alcohol COVID-19 (SILVIA) COVID-19 Clin Com Assessment and Plan (1) Polysubstance abuse: Status: Acute (2) Rhabdomyolysis: Qualifiers: Encounter type: initial encounter Status: Acute (3) Acute alteration in mental status: Status: Acute (4) Febrile: Status: Acute this is a 31-year-old male with past medical history of polysubstance abuse presents to the hospital after taking about her about her with according to him. Patient initially refused lab work but 24 hours later was able to give blood work that showed rhabdomyolysis, patient also found to have a fever. # rhabdomyolysis - most likely secondary to drug abuse - will start on aggressive IV fluids - follow CPK and BMP - no significant evidence of DAREN this time # febrile - had a fever while in the ED of 100.7 which is most likely secondary to his rhabdo - no evidence of infection with no leukocytosis , UA -ve - blood cultures obtained - will hold off on starting abx at this time, unless becomes febrile again # Polysubtance abuse - care team consulted DVT ppx: lovenox Quality Stroke Does the patient have a stroke diagnosis?: No VTE Prior VTE?: No VTE Risk Level:: Medical - moderate - high VTE Device Contraindication: Treatment Not Indicated VTE Drug Contraindication: N/A - Med Ordered
[2021-03-15] VITALS (8 sets, daily range): BP systolic 110–138; BP diastolic 66–85; PULSE 73–90; RESP 17–23; TEMP 36.8–37.2; O2SAT 94–100
[2021-03-15] MEDS: Lactated Ringers 1,000 ML 150 ML IVCONT ×4 (00:03→19:30)
[2021-03-15] MEDS: Enoxaparin Sodium 40 MG/0.4 ML SYRINGE SUBCUT ×2 (00:03→21:56)
--- NOTE | 2021-03-15 00:41 | PC.NURSE ---
This RN encouraged pt to urinate into urinal. Pt lethargic but arousable, states I'm tired, leave me alone. This RN explains the importance of ensuring he is able to urinate. Pt states well I can't. I'm telling you, I can't pee. Pt informed that if he is unable to urinate, this RN will straight cath pt. This RN explains what that procedure is. Pt expresses understanding, states then go ahead and do it, don't keep talking to me. This RN preparing to straight cath pt and pt yells get the fuck away from my penis, you're not sticking anything up my hole. This RN once again encouraged pt to urinate into urinal. Pt stands and voids 300cc which is charted in I&Os. Pt encouraged to continue to void. pt states that's all you're getting from me. I can't go anymore. Tell the doctor to go fuck herself. Pt returned to supine position on stretcher, quickly returns to sleep. Dr Vallejo made aware, states pt does not need straight cath at this time while he is able to produce urine. This RN discarded urine sample in error despite urine order.
--- NOTE | 2021-03-15 05:51 | PC.NURSE ---
This RN to bedside to bladder scan. Pt with ~445 cc urine in bladder. This RN asks pt to urinate into urinal, pt states I can't go, I need a warm blanket. Leave me alone. This RN, once again, explained to pt the need for him to attempt to urinate, and this RN explains desire to straight cath to avoid retention. Pt states you're not fucking touching me, leave me alone. Dr Vallejo made aware who states hopefully he urinates soon.
[2021-03-15 06:32] LABS: Amphetamine Screen Urine Not Detected (Not Detect); Barbiturates, Urine Not Detected (Not Detect); Benzodiazepines Screen Urine Not Detected (Not Detect); Cannabinoid Screen Urine Not Detected (Not Detect); Cocaine Screen Urine POSITIVE (Not Detect); Fentanyl, urine POSITIVE (Not Detect); Opiate Screen Urine POSITIVE (Not Detect); Phencyclidine Screen Urine Not Detected (Not Detect)
[2021-03-15 07:13] LABS: MANUAL DIFF FLAG NO
[2021-03-15 07:16] LABS: Basophils Percent Auto 0.3 % (0-2); Eosinophils Percent Auto 0.1 % (0-4); Hematocrit 39.4 % (42.0-52.0); Hemoglobin 13.6 g/dl (14.0-18.0); Imm Gran Abs Auto 0.01 X10*3/uL (0.00-0.03); Imm Gran Pct Auto 0.1 % (0.0-0.4); Lymphocytes Absolute Auto 1.6 X10*3/uL (1.2-4.9); Lymphocytes Percent Auto 21.8 % (20-40); Mean Corpuscular HGB Conc 34.5 g/dl (31.0-36.0); Mean Corpuscular Hemoglobin 29.5 pg (27.0-33.0); Mean Corpuscular Volume 85.5 fL (80.0-98.0); Mean Platelet Volume 9.2 fL (9.4-12.4); Monocytes Absolute Auto 0.8 X10*3/uL (0.1-1.2); Monocytes Percent Auto 10.8 % (2-11); Neutrophils Absolute Auto 4.9 x10*3/uL (2.0-8.3); Neutrophils Percent Auto 66.9 % (45-73); Platelet Count 271 X10*3/uL (160-400); Red Blood Count 4.61 X10*6/uL (4.60-5.80); Red Cell Distribution Width 12.6 % (11.0-16.0); White Blood Count 7.3 X10*3/uL (4.8-10.8)
--- NOTE | 2021-03-15 07:27 | PC.NURSE ---
pt received in bed, rni[ing. VSS as charted. Plan is to transfer to overflow unit imminently. Pt had voided approx 300 cc orange urine into urinal.
[2021-03-15 07:29] LABS: Anion Gap 9 (12-20); Blood Urea Nitrogen 9 mg/dL (9-16); Calcium 8.4 mg/dL (8.4-10.2); Carbon Dioxide 29 mmol/L (22-29); Chloride 103 mmol/L (96-108); Creatinine Clr Calc Pharmacy 123.6; Estimated Glomerular Filt Rate > 60; Glucose Random 114 mg/dL (60-115); Potassium 3.6 mmol/L (3.3-5.1); Sodium 137 mmol/L (135-145)
--- NOTE | 2021-03-15 07:57 | PC.NURSE ---
report called to overflow unit (TIMOTHY Howard). Pt is sleeping now in no acute distress
--- NOTE | 2021-03-15 10:28 | PC.NURSE ---
Pt has been sleeping since arriving to the overflow unit. Awakens to name, calm when awoken and answerers questions appropriately. Per RELOCATION ASSOCIATE Diane, no suboxone to be given this AM due to fentynol in his system.Fluids running as per MAY orders. Awaiting bed assignment. Will continue to monitor.
--- NOTE | 2021-03-15 11:16 | PM.EVENT ---
Event Note Date of Service: 03/15/21 Event Note: Brief Addiction note Chart reviewed and patient seen Dx of OUD and cocaine use disorder, currently medically admitted with rhabdo Per chart review, patient prescribed Suboxone 16mg QD. Unclear when he last took this medication, patient poor historian and limited participation interview (awakening and quickly falling back to sleep) Stating last used opioids 4,5,6,7 days ago (of note patient has been here one day and at that time he reported use prior to admission) Plan: -hold daily order of susboxone for now for concern of precipitated withdrawal as we don't know when he last took suboxone, but he has been using fentanyl -start microdosing suboxone and titrate to effect--discussed plan with RN
--- NOTE | 2021-03-15 11:22 | MHC.CM.PN ---
CM MET WITH PT IN ED OVERFLOW 10. PT REPORTS HE IS NOT REALLY HOMELESS, HE REPORTS HE LIVES WITH HIS MOTHER BUT WAS MAD AT HER SO HAS BEEN STAYING ON THE STREETS PT REPORTS AT DC HE WANTS TO RETURN TO HIS MOTHERS BUT SAYS HE DOES NOT WANT TO GO TO THE STREET AT ALL INCLUDING TO CATCH A BUS PT ALSO REPORTS HE LIVES ALL THE WAY IN [place] WHICH DOES NOT HAVE A DIRECT BUS ROUTE PT DENIES USE OF DME PT REPORTS HE GOES WEEKLY TO A SUBOXONE CLINIC NEAR HIS HOME IN [place], HE REPORTS HE MISSED HIS APPT YESTERDAY DUE TO BEING HERE HOWEVER HE DOES HAVE SOME MEDS AT HOME CURRENT NE PLAN IS HOME WITH RESUMPTION OF OP SUBOXONE TREATMENT PT WILL NEED A TAXI/LYFT
--- NOTE | 2021-03-15 11:46 | HO.SUDE ---
See Addiction Medicine provider note.
--- NOTE | 2021-03-15 12:54 | P.PNIM_ITS ---
Subjective Subjective Date of Service: 03/15/21 Interval History: the patient was seen and evaluated this morning Laying in bed, feels comfortable blood complain of generalized weakness and muscle pain very difficult to wake as he keeps falling asleep No reported other overnight events. Systemic review: No fever, chills but has generalized muscle pain and weakness No chest pain, palpitation No shortness of breath or coughing No abdominal pain, nausea or vomiting No urinary symptoms No any rash or wounds Physical Exam Vital Signs: Vital Signs: Last Vital Signs Temp 99.9 F 03/14/21 21:49 Pulse 73 03/15/21 07:24 Resp 20 03/15/21 07:24 BP 110/66 03/15/21 07:24 Pulse Ox 98 03/15/21 04:12 BMI result Body Mass Index 24.3 Const: Other: Constitutional : Alert with stimulation, not in distress Neck : Normal inspection, Supple Cardiovascular : RRR, S1 S2, no lower extremity edema Respiratory : Good bilateral air entry, no crackles, wheezes or rhonchi Gastrointestinal: soft, lax, Normal bowel sounds, Non tender Skin : Warm, Dry Neurological : Alert & oriented x3, No focal deficit Objective Data Active Medications Acetaminophen (Acetaminophen 325 Mg Tablet) 650 mg PO Q6H PRN PRN Reason: Pain, Mild (Pain Scale 1-3) Buprenorphine/Naloxone (Buprenorphine/Naloxone 8/2 Mg Film) 2 film SUBLINGUAL DAILY [facility] Last Admin: 03/15/21 10:30 Dose: Not Given Documented by: ARLEY Non-Admin Reason: Physician Held Med Docusate Sodium (Docusate Sodium 100 Mg Capsule) 100 mg PO DAILY PRN PRN Reason: Constipation Enoxaparin Sodium (Enoxaparin Sodium 40 Mg/0.4 Ml Syringe) 40 mg SUBCUT 2200 [facility] Last Admin: 03/15/21 00:03 Dose: 40 mg Documented by: NAYAN Lactated Ringer's (Lr) 1,000 mls @ 150 mls/hr IVCONT .Q6H40M [facility] Last Admin: 03/15/21 06:02 Dose: 150 mls/hr Documented by: JOSE Ondansetron HCl (Ondansetron Hcl 4 Mg/2 Ml Vial) 4 mg IVPUSH Q8H PRN PRN Reason: Nausea and Vomiting Pharmacy Consult (Consult Rx Perform Med Rec) 1 each MISCELLANE ONCE PRN PRN Reason: Consult order Sodium Chloride (0.9 % Sodium Chloride Flush 3 Ml Syringe) 3 ml IVFLUSH QSHIFT [facility] Last Admin: 03/15/21 08:45 Dose: Not Given Documented by: ARLEY Non-Admin Reason: IV Running Labs CBC & Chem 7: 03/15/21 07:05 03/15/21 07:05 Labs: Laboratory Results - last 24 hr 03/14/21 03/14/21 03/14/21 19:31 19:31 19:31 MCV 84.7 MCH 29.8 MCHC 35.1 RDW 12.6 Plt Count 316 MPV 9.3 L Immature Gran % (Auto) 0.3 Neut % (Auto) 83.9 H Lymph % (Auto) 10.4 L [place] % (Auto) 5.2 Eos % (Auto) 0.0 Baso % (Auto) 0.2 Lymph # (Auto) 1.1 L [place] # (Auto) 0.5 Eos # (Auto) 0.0 Baso # (Auto) 0.0 Abs Immat Gran (auto) 0.03 Absolute Neuts (auto) 8.8 H Absolute Nucleated RBC 0.000 Nucleated RBC % (auto) 0.0 Anion Gap 12 Estim Creat Clear Calc 84.1 Estimated GFR > 60 Random Glucose 203 H D Lactic Acid Calcium 9.5 Total Bilirubin 1.0 Direct Bilirubin 0.4 AST 209 H ALT 76 H Alkaline Phosphatase 82 Total Creatine Kinase 26405 H Total Protein 7.3 Albumin 4.2 Urine Color Urine Appearance Urine pH Ur Specific [place] Urine Protein Urine Glucose (UA) Urine Ketones Urine Blood Urine Nitrite Ur Leukocyte Esterase Urine RBC Urine WBC Ur Squamous Epith Cells Urine Bacteria Urine Opiates Screen Urine Fentanyl Screen Ur Barbiturates Screen Ur Phencyclidine Scrn Ur Amphetamines Screen U Benzodiazepines Scrn Urine Cocaine Screen U Marijuana (THC) Screen Ethyl Alcohol < 10 03/14/21 03/14/21 03/14/21 21:28 21:44 Unknown MCV MCH MCHC RDW Plt Count MPV Immature Gran % (Auto) Neut % (Auto) Lymph % (Auto) [place] % (Auto) Eos % (Auto) Baso % (Auto) Lymph # (Auto) [place] # (Auto) Eos # (Auto) Baso # (Auto) Abs Immat Gran (auto) Absolute Neuts (auto) Absolute Nucleated RBC Nucleated RBC % (auto) Anion Gap Estim Creat Clear Calc Estimated GFR Random Glucose Lactic Acid 0.9 Calcium Total Bilirubin Direct Bilirubin AST ALT Alkaline Phosphatase Total Creatine Kinase Total Protein Albumin Urine Color YELLOW Urine Appearance CLEAR Urine pH 6.5 Ur Specific [place] 1.025 Urine Protein TRACE Urine Glucose (UA) NEG Urine Ketones >=80 Urine Blood 1+ H Urine Nitrite NEG Ur Leukocyte Esterase NEG Urine RBC 0-2 Urine WBC 0 Ur Squamous Epith Cells 1+ Urine Bacteria NONE Urine Opiates Screen POSITIVE H Urine Fentanyl Screen POSITIVE H Ur Barbiturates Screen Not Detected Ur Phencyclidine Scrn Not Detected Ur Amphetamines Screen Not Detected U Benzodiazepines Scrn Not Detected Urine Cocaine Screen POSITIVE H U Marijuana (THC) Screen Not Detected Ethyl Alcohol 03/15/21 03/15/21 03/15/21 06:10 07:05 07:05 MCV 85.5 MCH 29.5 MCHC 34.5 RDW 12.6 Plt Count 271 MPV 9.2 L Immature Gran % (Auto) 0.1 Neut % (Auto) 66.9 Lymph % (Auto) 21.8 [place] % (Auto) 10.8 Eos % (Auto) 0.1 Baso % (Auto) 0.3 Lymph # (Auto) 1.6 [place] # (Auto) 0.8 Eos # (Auto) 0.0 Baso # (Auto) 0.0 Abs Immat Gran (auto) 0.01 Absolute Neuts (auto) 4.9 Absolute Nucleated RBC 0.000 Nucleated RBC % (auto) 0.0 Anion Gap 9 L Estim Creat Clear Calc 123.6 Estimated GFR > 60 Random Glucose 114 D Lactic Acid Calcium 8.4 D Total Bilirubin Direct Bilirubin AST ALT Alkaline Phosphatase Total Creatine Kinase Total Protein Albumin Urine Color Urine Appearance Urine pH Ur Specific [place] Urine Protein Urine Glucose (UA) Urine Ketones Urine Blood Urine Nitrite Ur Leukocyte Esterase Urine RBC Urine WBC Ur Squamous Epith Cells Urine Bacteria Urine Opiates Screen POSITIVE H Urine Fentanyl Screen POSITIVE H Ur Barbiturates Screen Not Detected Ur Phencyclidine Scrn Not Detected Ur Amphetamines Screen Not Detected U Benzodiazepines Scrn Not Detected Urine Cocaine Screen POSITIVE H U Marijuana (THC) Screen Not Detected Ethyl Alcohol 03/15/21 07:05 MCV MCH MCHC RDW Plt Count MPV Immature Gran % (Auto) Neut % (Auto) Lymph % (Auto) [place] % (Auto) Eos % (Auto) Baso % (Auto) Lymph # (Auto) [place] # (Auto) Eos # (Auto) Baso # (Auto) Abs Immat Gran (auto) Absolute Neuts (auto) Absolute Nucleated RBC Nucleated RBC % (auto) Anion Gap Estim Creat Clear Calc Estimated GFR Random Glucose Lactic Acid Calcium Total Bilirubin Direct Bilirubin AST ALT Alkaline Phosphatase Total Creatine Kinase 8829 H Total Protein Albumin Urine Color Urine Appearance Urine pH Ur Specific [place] Urine Protein Urine Glucose (UA) Urine Ketones Urine Blood Urine Nitrite Ur Leukocyte Esterase Urine RBC Urine WBC Ur Squamous Epith Cells Urine Bacteria Urine Opiates Screen Urine Fentanyl Screen Ur Barbiturates Screen Ur Phencyclidine Scrn Ur Amphetamines Screen U Benzodiazepines Scrn Urine Cocaine Screen U Marijuana (THC) Screen Ethyl Alcohol Assessment and Plan (1) Acute alteration in mental status: Status: Acute (2) Rhabdomyolysis: Status: Acute Assessment and Plan: this is a 31-year-old male with past medical history of polysubstance abuse presents to the hospital after taking about her about her with according to him. Patient initially refused lab work but 24 hours later was able to give blood work that showed rhabdomyolysis, patient also found to have a fever. # rhabdomyolysis CPK decreased to 8000 likely secondary to drug abuse continue aggressive IV fluids follow CPK and BMP no significant evidence of DAREN this time # altered mentation Could be secondary to intoxication Hold Suboxone for now Addiction team following Recurrent reorientation Fever Resolved, likely secondary to his rhabdo no evidence of infection with no leukocytosis , UA -ve blood cultures pending hold off on starting abx at this time, unless becomes febrile again Polysubtance abuse addiction team and care team consulted DVT ppx: lovenox Quality Stroke Does the patient have a stroke diagnosis?: No VTE Prior VTE?: No VTE Risk Level:: Medical - moderate - high VTE Device Contraindication: Treatment Not Indicated VTE Drug Contraindication: N/A - Med Ordered
[2021-03-15] MEDS: Buprenorphine/Naloxone 2/0.5mg FILM 0.5 FILM SUBLINGUAL (16:24)
[2021-03-15] MEDS: Buprenorphine/Naloxone 2/0.5mg FILM 1 FILM SUBLINGUAL (21:56)
[2021-03-16] MEDS: Lactated Ringers 1,000 ML 150 ML IVCONT ×4 (02:23→21:58)
[2021-03-16 03:48] VITALS: BP 135/78; PULSE 76; RESP 18; TEMP 36.5; O2SAT 99
[2021-03-16] MEDS: Buprenorphine/Naloxone 2/0.5mg FILM 1 FILM SUBLINGUAL ×3 (04:08→13:06)
[2021-03-16 07:36] VITALS: BP 135/78; PULSE 70; RESP 18; TEMP 36.7; O2SAT 98
[2021-03-16 08:00] VITALS: PULSE 70
[2021-03-16] MEDS: Ketorolac Tromethamine 30 MG/ML VIAL IVPUSH (10:55)
[2021-03-16 11:50] LABS: Anion Gap 10 (12-20); Blood Urea Nitrogen 8 mg/dL (9-16); Calcium 9.4 mg/dL (8.4-10.2); Carbon Dioxide 28 mmol/L (22-29); Chloride 107 mmol/L (96-108); Creatinine Clr Calc Pharmacy 131.3; Estimated Glomerular Filt Rate > 60; Glucose Random 95 mg/dL (60-115); Potassium 3.9 mmol/L (3.3-5.1); Sodium 141 mmol/L (135-145)
[2021-03-16 12:00] VITALS: BP 130/71; PULSE 70; RESP 18; TEMP 37.1; O2SAT 97
--- NOTE | 2021-03-16 13:55 | MHC.RECOVRN ---
Met with pt this morning to follow up regarding Suboxone and substance use. Pt awake, alert, engaged. Pt reports recently completing [address], approx 2 months ago. Pt had initiated Suboxone while in treatment and has continued outpatient with a provider in [place]. Prior to [facility] [place], pt was taking 8/2mg BID. Pt reports using heroin ([place]) and cocaine (INH). Pt returned to using heroin approx 1.5 weeks ago when he did not have his Suboxone with him and began to feel withdrawal symptoms. Pt reports using 1-3 bags as needed. Pt reports using cocaine much more than heroin, unable to quantify how much. Pt plans to return home in [place] when discharged and not come back to [place]. Pt reports being in [place] is a trigger. Pt does need transportation home, CM aware. Pt has a prescription at home and is able to follow up with provider. Pt provided with t/w contact information if needed. Discussed with Diane Webster APRN.
--- NOTE | 2021-03-16 14:18 | HO.PM.IMPN ---
Subjective Subjective Date of Service: 03/16/21 Interval History: The patient was seen and evaluated this morning Laying in bed, feels better but still complaining of generalized weakness and muscle pain has left hand pain More alert and interactive No reported other overnight events. Systemic review: No fever, chills but has generalized muscle pain and weakness No chest pain, palpitation No shortness of breath or coughing No abdominal pain, nausea or vomiting No urinary symptoms No any rash or wounds Physical Exam Vital Signs: Vital Signs: Last Vital Signs Temp 98.7 F 03/16/21 12:00 Pulse 70 03/16/21 12:00 Resp 18 03/16/21 12:00 BP 130/71 03/16/21 12:00 Pulse Ox 97 03/16/21 12:00 BMI result Body Mass Index 24.3 Const: Other: Constitutional : Alert, interactive, not in distress Neck : Normal inspection, Supple Cardiovascular : RRR, S1 S2, no lower extremity edema Respiratory : Good bilateral air entry, no crackles, wheezes or rhonchi Gastrointestinal: soft, lax, Normal bowel sounds, Non tender Skin : Warm, Dry Musculoskeletal, left hand with mild swelling around middle finger, decreased range of motion, no drainage or erythema noted. Neurological : Alert & oriented x3, No focal deficit Objective Data Active Medications Acetaminophen (Acetaminophen 325 Mg Tablet) 650 mg PO Q6H PRN PRN Reason: Pain, Mild (Pain Scale 1-3) Buprenorphine/Naloxone (Buprenorphine/Naloxone 8/2 Mg Film) 2 film SUBLINGUAL DAILY [facility] Last Admin: 03/15/21 10:30 Dose: Not Given Documented by: ARLEY Non-Admin Reason: Physician Held Med Docusate Sodium (Docusate Sodium 100 Mg Capsule) 100 mg PO DAILY PRN PRN Reason: Constipation Enoxaparin Sodium (Enoxaparin Sodium 40 Mg/0.4 Ml Syringe) 40 mg SUBCUT 2200 [facility] Last Admin: 03/15/21 21:56 Dose: 40 mg Documented by: FRANCO Lactated Ringer's (Lr) 1,000 mls @ 150 mls/hr IVCONT .Q6H40M [facility] Last Admin: 03/16/21 08:40 Dose: 150 mls/hr Documented by: MEGHAN Ondansetron HCl (Ondansetron Hcl 4 Mg/2 Ml Vial) 4 mg IVPUSH Q8H PRN PRN Reason: Nausea and Vomiting Pharmacy Consult (Consult Rx Perform Med Rec) 1 each MISCELLANE ONCE PRN PRN Reason: Consult order Sodium Chloride (0.9 % Sodium Chloride Flush 3 Ml Syringe) 3 ml IVFLUSH QSHIFT [facility]KH[facility] Last Admin: 03/16/21 07:12 Dose: Not Given Documented by: MEGHAN Non-Admin Reason: IV Running Labs CBC & Chem 7: 03/15/21 07:05 03/16/21 11:11 Labs: Laboratory Results - last 24 hr 03/16/21 11:11 Anion Gap 10 L Estim Creat Clear Calc 131.3 Estimated GFR > 60 Random Glucose 95 Calcium 9.4 D Total Creatine Kinase 5527 H D Microbiology Microbiology Results: Microbiology 03/14/21 21:44 Blood Culture - Preliminary Blood - Venous No growth after 24 hours. 03/14/21 21:44 Blood Culture - Preliminary Blood - Venous No growth after 24 hours. Assessment and Plan (1) Rhabdomyolysis: Status: Acute (2) Acute alteration in mental status: Status: Acute (3) Febrile: Status: Acute (4) Polysubstance abuse: Status: Acute Assessment and Plan: this is a 31-year-old male with past medical history of polysubstance abuse presents to the hospital after taking about her about her with according to him. Patient initially refused lab work but 24 hours later was able to give blood work that showed rhabdomyolysis, patient also found to have a fever. # rhabdomyolysis CPK decreased to 5000 secondary to drug abuse continue aggressive IV fluids follow CPK and BMP no significant evidence of DAREN this time # altered mentation improved Likely secondary to intoxication Hold Suboxone for now Addiction team following Recurrent reorientation # Left hand pain Started this morning mild swelling around the middle finger XR negative for any fracture Use ibuprofen as needed for pain # Fever Resolved, likely secondary to his rhabdo no evidence of infection with no leukocytosis , UA -ve blood cultures negative hold off on starting abx at this time, unless becomes febrile again # Polysubtance abuse addiction team evaluated the patient, hold Suboxone DVT ppx: lovenox Quality Stroke Does the patient have a stroke diagnosis?: No VTE Prior VTE?: No VTE Risk Level:: Medical - moderate - high VTE Device Contraindication: Treatment Not Indicated VTE Drug Contraindication: N/A - Med Ordered
[2021-03-16 16:00] VITALS: PULSE 70; RESP 16
[2021-03-16] MEDS: Ibuprofen 400 MG TABLET PO ×2 (16:01→21:57)
[2021-03-16] MEDS: Buprenorphine/Naloxone 8/2 mg FILM 1 FILM SUBLINGUAL (17:48)
[2021-03-16 20:00] VITALS: BP 118/62; PULSE 70; RESP 16; TEMP 36.4; O2SAT 97
[2021-03-17] VITALS: BP 116/51; PULSE 82; RESP 18; TEMP 36.4; O2SAT 97
[2021-03-17] MEDS: Lactated Ringers 1,000 ML 150 ML IVCONT (03:59)
[2021-03-17 04:00] VITALS: BP 120/65; PULSE 66; RESP 18; TEMP 36.8; O2SAT 98
[2021-03-17] MEDS: Ibuprofen 400 MG TABLET PO ×2 (04:03→12:02)
[2021-03-17 08:00] VITALS: BP 127/60; PULSE 68; RESP 17; TEMP 36.6; O2SAT 100
[2021-03-17] MEDS: Buprenorphine/Naloxone 8/2 mg FILM 1 FILM SUBLINGUAL (08:12)
[2021-03-17] MEDS: Acetaminophen 325 MG TABLET 650 MG PO (08:12)
--- NOTE | 2021-03-17 10:35 | PM.DS ---
DS: Providers Provider Date of Service: 03/17/21 Date of admission: 03/14/21 23:27 Primary care physician: Unknown Physician Consults: 03/15/21 08:33 Addiction Medicine Routine Consulting Provider: Diane Webster Reason for consultation: Polysubstance abuse for your kind eval and rec. DS: Diagnosis Discharge Diagnosis (1) Rhabdomyolysis: Status: Acute (2) Acute alteration in mental status: Status: Acute (3) Febrile: Status: Acute (4) Polysubstance abuse: Status: Acute DS: Summary Hospital Course Hospital Course: Admission note HPI ?this is a 31-year-old male with history of polysubstance abuse who initially presented to the hospital on 03/13 with reports of taking bad heroin .? initially patient had presented with involuntary movements, agitation? and stating that he had allergic reaction.? At the time of presentation on the ,? patient had refused blood work at that time and he was placed in the U pod for placement. Today patient agreed to blood work for medical clearance and was found to have CPK level? 11,414.? no significant other blood of abnormality at this time, with BUN of 14 and creatinine of 1.26 baseline around 0.94 from 11/10. ?on my attempt to interview the patient, patient is sleeping, wakes up to answer 1 word answers but goes back to sleep, he denies having any chest pain, no shortness of breath, no abdominal pain nausea or vomiting, no diarrhea constipation, no urinary symptoms, he is not telling me why he came into the hospital or what happened. Patient started on IV fluids and will be admitted to the general medical floor Hospital course The patient was admitted to the hospital after being found to have rhabdomyolysis with elevated CPK over 11,000. Treated with IV fluid with good response as no kidney injury was seen But mildly elevated. He was mildly altered but improved with hydration. Evaluated by addiction team who adjusted the dose of his Suboxone to b.i.d.. He complained of left hand pain and swelling which was evaluated by x-ray and did not show any abnormality. Improved the day of discharge. Advised to quit drugs and to follow-up with the Addiction team Time Spent with Patient Time attestation: Total time spent providing and/or coordinating discharge services: Discharge coordination time: Greater than 30 minutes Quality: Stroke Does the patient have a stroke diagnosis?: No Physical Exam Vital Signs: Vital Signs: Last Vital Signs Temp 97.8 F 03/17/21 08:00 Pulse 68 03/17/21 08:00 Resp 17 03/17/21 08:00 BP 127/60 03/17/21 08:00 Pulse Ox 100 03/17/21 08:00 BMI result Body Mass Index 24.3 Const: Other: Constitutional : Alert, interactive, not in distress Neck : Normal inspection, Supple Cardiovascular : RRR, S1 S2, no lower extremity edema Respiratory : Good bilateral air entry, no crackles, wheezes or rhonchi Gastrointestinal: soft, lax, Normal bowel sounds, Non tender Skin : Warm, Dry Musculoskeletal, left hand with middle finger swelling decreased, good range of motion, no drainage or erythema noted. Neurological : Alert & oriented x3, No focal deficit DS: Data Data Completed and Pending Labs on day of discharge: Laboratory Results - last 24 hr 03/16/21 03/17/21 11:11 08:10 Sodium 141 Potassium 3.9 Chloride 107 Carbon Dioxide 28 Anion Gap 10 L BUN 8 L Creatinine 0.80 Estim Creat Clear Calc 131.3 Estimated GFR > 60 Random Glucose 95 Calcium 9.4 D Total Creatine Kinase 5527 H D 2198 H D Preliminary micro results at discharge 03/14/21 21:44 Blood Culture - Preliminary Blood - Venous No growth after 48 hours. 03/14/21 21:44 Blood Culture - Preliminary Blood - Venous No growth after 48 hours. Discharge Plan Discharge Patient Disposition: Home, Self-Care Discharge Diagnosis: [place]ud[place] substance abuse Rhabdomyolysis Referrals: Physician,Sammi J [Primary Care Provider] - 1 Week Discharge Medications: New buprenorphine-naloxone [Suboxone] 8-2 mg film 1 film sublingual BID Qty: 10 RF: 0 Discontinued buprenorphine-naloxone [Suboxone] 8-2 mg film 2 strip sublingual DAILY RF: 0 Discharge Orders: Discharge Order (Routine); Ordered 03/17/21 Ordered By: Yael Maxwell Diet: advance to usual diet Activity on Discharge: As tolerated Stand Alone Forms: Patient Portal Discharge page Care Plan Goals: Read below Health Concerns: Read below Plan of Treatment: Read below Assessment: you were admitted to the hospital complaining of generalized pain as a result of using drugs Causing muscle breakdown. Treated with IV fluid with good response over the course of hospital stay. You were seen by the addiction team who adjusted your dosage of Suboxone. To follow-up with Diane Webster in the office as planned.
--- NOTE | 2021-03-17 11:26 | MHC.CM.PN ---
Addendum entered by Pretty Madden 03/17/21 12:21: TAXI VOUCHER COMPLETED AND GIVEN TO RN Original Note: PATIENT IS RETURNING HOME WITH NO SERVICES. RN AWARE OF PLAN.
== END 2021-03-17 12:54 | disposition home or self-care (01) | DRG 351 ==
LOC: HO.ED 03-14 21:36 → HO.EDOVER 03-14 23:40 → HO.S3 03-15 13:20
PROVIDERS: Admitting Provider Internal Medicine; Emergency Provider Emergency Medicine Emergency Medical Services; Visit Provider Student in an Organized Health Care Education/Training Program
DX: M62.82 Rhabdomyolysis (principal); F11.229 Opioid dependence with intoxication, unspecified; F17.210 Nicotine dependence, cigarettes, uncomplicated; Z71.6 Tobacco abuse counseling; Z20.822 Contact with and (suspected) exposure to COVID-19; F14.10 Cocaine abuse, uncomplicated
CPT/HCPCS: 36415; 51798; 73110; 73130; 80048; 80076; 80307; 81001; 82077; 82550; 83605; 85025; 87040; 87635; 93005; 96361; 96372; 99285; J1200; J1650; J1885; J2060

== ENCOUNTER 2024-08-20 02:57 | Emergency (ER) | payer MEDICAID, SELFPAY ==
--- NOTE | ~2024-08-20 | CT_ITS ---
CLINICAL HISTORY: epigastric pain CT abdomen and pelvis with contrast Comparison: None Findings: The lung bases are clear. Unremarkable gallbladder and solid organs. No urolithiasis. No bowel obstruction, pneumoperitoneum, or pneumatosis. There is a duplicated IVC. Small fat containing umbilical hernia is present. Pelvic contents unremarkable. Normal appendix. No acute fracture. IMPRESSION: No acute findings. This document has been electronically signed by: Madison Espinoza on 08/20/2024 05:37:36
[2024-08-20 03:00] VITALS: BP 109/50; PULSE 73; RESP 16; TEMP 36.3; O2SAT 98; BMI 28.1
[2024-08-20 03:05] VITALS: BP 111/62; PULSE 78; RESP 16; TEMP 36.7; O2SAT 95
--- OUTSIDE RECORDS SUMMARY | 2024-08-20 03:33 | XMS_ITS | Clinical Summary ---
Author Organization [facility] ity Address [address] [place] [address] Care Team Providers Care Brand Ambassador Promotional Model Name Role Phone Unavailable Primary Care Provider Unavailabl e Social History Tobacco Use Types Packs/Day Years Used Date Smoking Tobacco: Never Assessed Sex and Gender Information Value Date Recorded Sex Assigned at Not on file Legal Sex Male 3:59 AM EST Gender Identity Not on file Sexual Orientation Not on file Plan of Treatment Health Maintenance Due Date Last Done Comments DTaP,Tdap,and Td Vaccines (1 - Tdap) 2007 Hepatitis B Vaccines (1 of 3 - 19+ 3-dose series) 2007 COVID-19 Vaccine ( - 2023-2 5 season) 2023 Influenza Vaccine (Season Ended) 2024 HIB Vaccines Aged Out No longer eligi ble based on patient's age to complete this topic HPV Vaccines Aged Out No longer eligi ble based on patient's age to complete this topic Hepatitis A Vaccines Aged Out No long er eligible based on patient's age to complete this topic IPV Vaccines Aged Out No longer eligi ble based on patient's age to complete this topic MMR Vaccines Aged Out No longer eligi ble based on patient's age to complete this topic Meningococcal ACWY Vaccine Aged Out N o longer eligible based on patient's age to complete this topic Meningococcal B Vaccine Aged Out No l onger eligible based on patient's age to complete this topic Pneumococcal Vaccine: Pediat rics (0 to 5 Years) and At-Risk Patients (6 to 64 Years) Aged Out No longer eligible b ased on patient's age to complete this topic RSV Immunization Patients Un priyanka 20 months Aged Out No longer eligible b ased on patient's age to complete this topic Varicella Vaccines Aged Out No longer eligible based on patient's age to complete this topic
[2024-08-20 03:47] LABS: MANUAL DIFF FLAG NO
[2024-08-20 03:48] LABS: Basophils Percent Auto 0.3 % (0-2); Eosinophils Absolute Auto 0.1 X10*3/uL (0.0-0.4); Eosinophils Percent Auto 0.7 % (0-4); Hematocrit 38.1 % (42.0-52.0); Hemoglobin 13.7 g/dl (14.0-18.0); Imm Gran Abs Auto 0.01 X10*3/uL (0.00-0.03); Imm Gran Pct Auto 0.1 % (0.0-0.4); Lymphocytes Absolute Auto 2.5 X10*3/uL (1.2-4.9); Lymphocytes Percent Auto 32.8 % (20-40); Mean Corpuscular Hemoglobin 29.2 pg (27.0-33.0); Mean Corpuscular Volume 81.2 fL (80.0-98.0); Mean Platelet Volume 9.1 fL (9.4-12.4); Monocytes Absolute Auto 0.7 X10*3/uL (0.1-1.2); Monocytes Percent Auto 8.7 % (2-11); Neutrophils Absolute Auto 4.3 x10*3/uL (2.0-8.3); Neutrophils Percent Auto 57.4 % (45-73); Platelet Count 266 X10*3/uL (160-400); Red Blood Count 4.69 X10*6/uL (4.60-5.80); Red Cell Distribution Width 12.9 % (11.0-16.0); White Blood Count 7.6 X10*3/uL (4.8-10.8)
[2024-08-20 03:56] VITALS: BP 105/44; PULSE 58; RESP 17; TEMP 36.5; O2SAT 95
[2024-08-20 04:10] LABS: Alkaline Phosphatase 53 U/L (39-117)
[2024-08-20 04:11] LABS: Albumin Level 4.2 g/dL (3.5-5.0); Chloride 107 mmol/L (96-108); Potassium 3.5 mmol/L (3.3-5.1); Sodium 140 mmol/L (135-145)
[2024-08-20 04:26] LABS: Alanine Aminotransferase 12 U/L (0-40); Anion Gap 9 (12-20); Aspartate Amino Transferase 17 U/L (5-37); Bilirubin Total 0.5 mg/dL (0.0-1.0); Blood Urea Nitrogen 8 mg/dL (9-16); Calcium 9.2 mg/dL (8.4-10.2); Carbon Dioxide 26 mmol/L (22-29); Creatinine Clr Calc Pharmacy 114.5; Estimated Glomerular Filt Rate > 60; Glucose Random 116 mg/dL (60-115); Lipase 19 U/L (8-78); Total Protein 6.7 g/dL (6.5-8.0)
[2024-08-20] MEDS: iohexoL 350 MG/ML 100 ML INFUS..BTL 85 ML IV (04:47)
[2024-08-20] MEDS: Famotidine/PF 20 MG/2 ML VIAL IVPUSH (04:56)
[2024-08-20] MEDS: Lidocaine HCl Viscous 2 % 15 ML SOLUTION MUCOUS MEM (04:56)
[2024-08-20] MEDS: Magnesium Hydrox/Alum Hydrox 30 ML ORAL.SUSP PO (04:56)
--- NOTE | 2024-08-20 05:02 | ED_ITS ---
HPI - Abdominal Pain General Chief Complaint: Abdominal Pain Stated Complaint: n/v/d abd pain Time Seen by Provider: 08/20/24 03:53 Source: patient Mode of arrival: ambulatory Limitations: no limitations History of Present Illness ED Provider: Dr. Grace Heard HPI narrative: Patient comes to the emergency room complaining of epigastric pain for several days. Patient states that he was seen previously at [facility], given fluids, nausea meds and discharged. Patient states that he has recording abdominal pain please denies drinking alcohol or using drugs. Related Data Previous Rx's ?Medication ?Instructions ?Recorded buprenorphine 8 mg-naloxone 2 mg 1 film sublingual BID #10 ea 03/17/21 sublingual film (Suboxone) omeprazole 40 mg capsule,delayed 40 mg PO DAILY #90 caps 08/20/24 release Allergies Allergy/AdvReac Type Severity Reaction Status Date / Time No Known Allergies Allergy Verified 08/20/24 03:04 Review of Systems Review of Systems Constitutional : No Weight loss, No Fever, No Chills, No Night Sweats, No Fatigue, No Malaise ENT/Mouth : No Hearing loss, No Ear Pain, No Nasal Congestion, No Sinus Pain, No Hoarseness, No sore throat, No Rhinorrhea, No Swallowing Difficulty Eyes: No Eye Pain, No Swelling, No Redness, No Foreign Body, No Discharge, No Vision Changes Cardiovascular : No Chest Pain, No SOB, No Dyspnea on Exertion, No Orthopnea, No Edema, No Palpitations Respiratory : No Cough, No Sputum, No Wheezing, No Smoke Exposure, No Dyspnea Gastrointestinal : Complaining of nausea, vomiting, epigastric pain Genitourinary : no irregular bleeding, No Dysuria, No Urinary Frequency, No Hematuria, No Urinary Incontinence, No Urgency, No Flank Pain, No Urinary Flow Changes, No Hesitancy Musculoskeletal : No joint pain, No Myalgias, No Joint Swelling Skin : No Skin Lesions, No rash Neuro : No Weakness, No Numbness, No Paresthesias, No Loss of Consciousness, No Dizziness, No Headache Psych : No Anxiety/Panic, No Depression, No SI/HI/AH/VH, No Social Issues, Heme/Lymph: No Bruising, No Bleeding,No Lymphadenopathy Endocrine : No Polyuria, No Polydipsia, No Temperature Intolerance PMFSH Past Medical History Medical History Polysubstance abuse Surgical History No pertinent past surgical history Social History Social History Household Members: Family Housing: Apartment Do you presently have visiting nurse or other home services: No Alcohol intake: never Patient Tobacco Use Status: Current everyday Tobacco user Tobacco use type: Cigarette Smoked in Last 30 Days: Yes Second Hand Smoke Exposure: Yes Use of substances other than those prescribed or required for medical reasons: No Substance Use Type: Crack/Cocaine, Heroin, Marijuana and Opiates Advance Directives: No Advance Directives Information Provided: Yes Do you have a plan to hurt others: No Plan service: No Current occupational status: unemployed Physical Exam ED Vital Signs: Vital Signs - 24 hr 08/20/24 03:00 08/20/24 03:05 08/20/24 03:56 Temperature 97.4 F 98.1 F 97.7 F Pulse Rate 73 78 58 Respiratory Rate 16 16 17 Blood Pressure 109/50 L 111/62 105/44 L Pulse Oximetry 98 95 95 Oxygen Delivery Method Room Air Room Air Room Air BMI result Body Mass Index 28.1 Const Other: Appearance: Alert. Oriented X3. No acute distress. Eyes: Pupils equal, round and reactive to light. ENT: Pharynx normal. Neck: Normal inspection. Neck supple. No lymph nodes noted. No crepitus CVS: Normal heart rate and rhythm. Pulses normal. Normal S1 and S2 Respiratory: No respiratory distress. Breath sounds normal. No Wheezing. No rales Abdomen: Soft , [id number] tenderness to palpation, no rebound or guarding, no distention Skin: Skin warm and dry. Normal skin color. Normal skin turgor. Extremities: No lower extremity edema. No Lacerations. No Rash Neuro: Oriented X 3. No motor deficit. No sensory deficit. Moving all extremities. No slurred speech. CN 2 through 12 grossly intact Psych: calm, cooperative, normal affect Course Course Course Narrative: Receiving IV fluids, famotidine, viscous lidocaine, Maalox Labs pending CT scan pending Medical Decision Making Medical Decision Making MDM Narrative: My interpretation of labs: Patient's hematology does not show any acute abnormality, normal white blood cell count at 7.6, hemoglobin and hematocrit at baseline 13.7/3.1 respectively, platelets 266, no abnormality in patient's electrolytes, LFTs within normal limits, lipase normal Patient's CT scan does not show any acute abnormalities. Patient did not provide any urine After the GI cocktail, patient is sleeping comfortably I discussed with the patient and his partner that it is likely that he has gastritis versus peptic ulcer disease. Patient will be sent home with Protonix and also the phone number to follow-up with GI. Patient and his partner agree with plan Differential Diagnosis Differential Diagnoses: The differential diagnosis associated with the presentation includes (Pancreatitis, cholecystitis, SBO, peptic ulcer disease, gastritis) Admission/Observation Consideration of admission/observation: Escalation of care including admission/observation considered (Given patient's initial presentation, observation was considered) Lab Data MDM Lab Attestation statement: I reviewed the patient's lab results. 08/20/24 03:40 08/20/24 03:40 Labs: Lab Results 08/20/24 Range/Units 03:40 WBC 7.6 (4.8-10.8) X10*3/uL RBC 4.69 (4.60-5.80) X10*6/uL Hgb 13.7 L (14.0-18.0) g/dl Hct 38.1 L (42.0-52.0) % MCV 81.2 (80.0-98.0) fL MCH 29.2 (27.0-33.0) pg MCHC 36.0 (31.0-36.0) g/dl RDW 12.9 (11.0-16.0) % Plt Count 266 (160-400) X10*3/uL MPV 9.1 L (9.4-12.4) fL Immature Gran % (Auto) 0.1 (0.0-0.4) % Neut % (Auto) 57.4 (45-73) % Lymph % (Auto) 32.8 (20-40) % [place] % (Auto) 8.7 (2-11) % Eos % (Auto) 0.7 (0-4) % Baso % (Auto) 0.3 (0-2) % Lymph # (Auto) 2.5 (1.2-4.9) X10*3/uL [place] # (Auto) 0.7 (0.1-1.2) X10*3/uL Eos # (Auto) 0.1 (0.0-0.4) X10*3/uL Baso # (Auto) 0.0 (0.0-0.2) X10*3/uL Abs Immat Gran (auto) 0.01 (0.00-0.03) X10*3/uL Absolute Neuts (auto) 4.3 (2.0-8.3) x10*3/uL Absolute Nucleated RBC 0.000 (0.0-0.012) X10*3/uL Nucleated RBC % (auto) 0.0 (0.0-0.2) /100WBC Sodium 140 (135-145) mmol/L Potassium 3.5 (3.3-5.1) mmol/L Chloride 107 (96-108) mmol/L Carbon Dioxide 26 (22-29) mmol/L Anion Gap 9 L (12-20) BUN 8 L (9-16) mg/dL Creatinine 0.97 (0.5-1.4) mg/dL Estim Creat Clear Calc 114.5 Estimated GFR > 60 Random Glucose 116 H (60-115) mg/dL Calcium 9.2 (8.4-10.2) mg/dL Total Bilirubin 0.5 (0.0-1.0) mg/dL AST 17 (5-37) U/L ALT 12 (0-40) U/L Alkaline Phosphatase 53 (39-117) U/L Total Protein 6.7 (6.5-8.0) g/dL Albumin 4.2 (3.5-5.0) g/dL Lipase 19 (8-78) U/L Independent Interpretation I performed an independent interpretation of an: CT Scan Radiology Impression Discussion of test interpretation with radiology: I have reviewed the radiologist's reading. Radiologist Impression: The lung bases are clear. Unremarkable gallbladder and solid organs. No urolithiasis. No bowel obstruction, pneumoperitoneum, or pneumatosis. There is a duplicated IVC. Small fat containing umbilical hernia is present. Pelvic contents unremarkable. Normal appendix. No acute fracture. IMPRESSION: No acute findings. Medications Administered Discontinued Medications Generic Name Dose Route Start Last Admin Trade Name Freq PRN Reason Stop Dose Admin Al Hydroxide/Mg Hydroxide 30 ml 08/20/24 04:30 08/20/24 04:56 Magnesium Hydrox/Alum Hydrox 30 Ml Oral.Susp PO 08/20/24 04:31 30 ml ONCE ONE Administration Famotidine 20 mg 08/20/24 04:31 08/20/24 04:56 Famotidine/Pf 20 Mg/2 Ml Vial IVPUSH 08/20/24 04:32 20 mg ONCE ONE Administration Iohexol 85 ml 08/20/24 04:47 08/20/24 04:47 Iohexol 350 Mg/Ml 100 Ml Infus..Btl IV 08/20/24 04:48 85 ml ONCE ONE Administration Lidocaine HCl 15 ml 08/20/24 04:30 08/20/24 04:56 Lidocaine Hcl Viscous 2 % 15 Ml Solution MUCOUS MEM 08/20/24 04:31 15 ml ONCE ONE Administration Critical Care Time Critical Care Time Critical Care Time: Yes Total Critical Care Time: 45 Attestation: I have personally provided critical care time. Time includes review of lab data, radiology results, discussion with consultants, and monitoring for potential decompensation. Intervention performed as documented. Discharge Plan Discharge Clinical Impression: Gastritis Patient Disposition: Home, Self-Care Instructions: Gastritis (ED), Diet for Stomach Ulcers and Gastritis (ED) Additional Instructions: Please follow-up with your primary care physician tomorrow. If you have any worsening or new symptoms, please return to the emergency room or call 911 Prescriptions: New omeprazole 40 mg capsule,delayed release(DR/EC) 40 mg PO DAILY Qty: 90 0RF No Action buprenorphine-naloxone [Suboxone] 8-2 mg film 1 film sublingual BID Qty: 10 0RF Referrals: Telma Elizabeth MD [Physician] - 08/24/24 Print Language: Congolese
[2024-08-20 06:44] VITALS: BP 119/73; PULSE 62; RESP 17; TEMP 36.7; O2SAT 95
== END 2024-08-20 06:46 | disposition home or self-care (01) ==
PROVIDERS: Emergency Provider Emergency Medicine
DX: K29.70 Gastritis, unspecified, without bleeding (principal); R11.2 Nausea with vomiting, unspecified; R10.13 Epigastric pain; F17.210 Nicotine dependence, cigarettes, uncomplicated
CPT/HCPCS: 36415; 74177; 80053; 83690; 85025; 96374; 99284; J1308; Q9967

== ENCOUNTER → 2024-08-20 04:30 | Outpatient (BNV) | payer MEDICAID, SELFPAY | PROVIDERS: Emergency Provider Emergency Medicine; Visit Provider Radiology Vascular & Interventional Radiology | DX: R10.13 Epigastric pain (principal) | CPT/HCPCS: 74177 ==

== ENCOUNTER 2024-08-20 16:41 | Emergency (ER) | payer MEDICAID, SELFPAY ==
--- NOTE | 2024-08-20 16:43 | ECG_ITS ---
Test Reason : EPIGASRTIC PAIN Blood Pressure : */* mmHG Vent. Rate : 63 BPM Atrial Rate : 63 BPM P-R Int : 158 ms QRS Dur : 108 ms QT Int : 382 ms P-R-T Axes : 47 62 34 degrees QTcB Int : 390 ms Normal sinus rhythm Normal ECG When compared with ECG of 14-Mar-2021 20:53, T wave inversion no longer evident in Anterior leads Referred By: Generic ED Physician Electronically Signed By: ROGERIO ARREDONDO
[2024-08-20 16:44] VITALS: BP 129/78; PULSE 76; RESP 19; TEMP 36.4; O2SAT 98; BMI 28.1
[2024-08-20] MEDS: Naloxone HCl Nasal TAKE HOME 4 MG SPRAY 8 MG NOSTRILALT (17:18)
[2024-08-20] MEDS: Ondansetron ODT 4 MG TAB.RAPDIS TRANSLINGU ×2 (17:19→22:52)
[2024-08-20 17:39] VITALS: O2SAT 96
--- NOTE | 2024-08-20 18:15 | ED_ITS ---
HPI - Overdose General Chief Complaint: Overdose Stated Complaint: chest pain Time Seen by Provider: 08/20/24 17:01 Source: patient Mode of arrival: ambulatory Limitations: no limitations History of Present Illness ED Provider: HPI Narrative: Patient's history of substance abuse on Suboxone says that he has a epigastric pain and took only 2 doses of Suboxone which he used to take but patient noted to be sleepy passing out while in the triage and stops breathing desaturated to high 80s denies any chest pain patient was here last night discharge earlier today for same thing Related Data Previous Rx's ?Medication ?Instructions ?Recorded buprenorphine 8 mg-naloxone 2 mg 1 film sublingual BID #10 ea 03/17/21 sublingual film (Suboxone) omeprazole 40 mg capsule,delayed 40 mg PO DAILY #90 caps 08/20/24 release Allergies Allergy/AdvReac Type Severity Reaction Status Date / Time No Known Allergies Allergy Verified 08/20/24 16:51 Review of Systems Review of Systems: Yes all other systems are reviewed and are negative PMFSH Past Medical History Medical History Polysubstance abuse Surgical History No pertinent past surgical history Social History Social History Household Members: Family Housing: Apartment Do you presently have visiting nurse or other home services: No Alcohol intake: never Patient Tobacco Use Status: Current everyday Tobacco user Tobacco use type: Cigarette Second Hand Smoke Exposure: Yes Substance Use Type: Crack/Cocaine, Heroin, Marijuana and Opiates Advance Directives: No Advance Directives Information Provided: No Do you have a plan to hurt others: No Plan service: No Current occupational status: unemployed Physical Exam Vital Signs: Vital Signs: Last Vital Signs Temp 98.4 F 08/20/24 20:31 Pulse 69 08/21/24 08:07 Resp 16 08/20/24 20:31 BP 124/65 08/21/24 08:07 Pulse Ox 94 08/20/24 20:31 O2 Del Method Room Air 08/20/24 20:31 BMI result Body Mass Index 28.1 Appearance: Alert. Oriented X3. No acute distress. Falling asleep Eyes: PERRLA, No Nystagmus ENT: Pharynx normal. Oral Mucosa moist Neck: Normal inspection. Neck supple. CVS: Normal heart rate and rhythm. Pulses normal. Respiratory: No respiratory distress. Equal air entry bilateral, no wheezing/rales/rhonchi Abdomen: Soft and epigastric tenderness++ Bowel sounds are present, no mass palpable, no CVA tenderness Skin: Skin warm and dry. Normal skin color. Normal skin turgor. Extremities: No lower extremity edema. No calf tenderness Neuro: Oriented X 3. No motor deficit. No sensory deficit.No cerebellar signs , cranial nerves II-XII intact Course Course Course Narrative: Time: 09:34 Date: 08/21/24 Provider: Aleyda Flynn DO Physician observation ended at 935am. continues to c/o chronic upper abdominal pain. asking for his AM detox. I am going to order his AM suboxone and omeprazole instruct him to follow up with is PCP. Alert and oriented - no signs of sedation. DC to home Medications Administered Discontinued Medications Generic Name Dose Route Start Last Admin Trade Name Phoenixq PRN Reason Stop Dose Admin Al Hydroxide/Mg Hydroxide 30 ml 08/20/24 17:16 08/20/24 18:40 Magnesium Hydrox/Alum Hydrox 30 Ml Oral.Susp PO 08/20/24 17:17 30 ml ONCE ONE Administration Midazolam HCl 2 mg 08/20/24 22:47 08/20/24 22:52 Midazolam Hcl 2 Mg/2 Ml Vial IM 08/20/24 22:48 2 mg ONCE ONE Administration Naloxone HCl 8 mg 08/20/24 17:02 08/20/24 17:18 Naloxone Hcl Nasal Take Home 4 Mg [place] NOSTRILALT 08/20/24 17:03 4 mg ONCE ONE Administration Ondansetron HCl 4 mg 08/20/24 17:16 08/20/24 17:19 Ondansetron Odt 4 Mg Tab.Rapdis TRANSLINGU 08/20/24 17:17 4 mg ONCE ONE Administration Ondansetron HCl 4 mg 08/20/24 22:40 08/20/24 22:52 Ondansetron Odt 4 Mg Tab.Rapdis TRANSLINGU 08/20/24 22:41 4 mg ONCE ONE Administration Medical Decision Making Medical Decision Making MDM Narrative: Patient with chronic gastritis with cyclic vomiting with history of substance abuse noted to have overdose on opiates/fentanyl was happening while in the ER given naloxone. After waking up later patient became very anxious started vomiting was given Versed 2 mg to sleep at this time patient's vitals stable and patient is sleeping Discharge Plan Discharge Clinical Impression: Opiate abuse, continuous, Cyclic vomiting syndrome, Anxiety, Chronic GERD Patient Disposition: Home, Self-Care Instructions: GERD (Gastroesophageal Reflux Disease) (DC), Acute Nausea and Vomiting (DC), Anxiety (ED), Narcotic Use Disorder (ED) Additional Instructions: Follow up with detox Continue medication as prescribed Do not overdose your self Opiate use disorder You were seen in our Emergency Department today for treatment of opiate use disorder. You may have been dosed with medication for opiate use disorder (MOUD) in the form of suboxone or methadone. You may experience feeling some withdrawal symptoms and this is normal. The? dose in the Emergency Department is a starting dose and meant to be titrated up once you follow up with a clinic. Please do not feel discouraged, it is a process. The nurse has reviewed with you where to follow up and what information to bring with you, to continue treatment. You also may have been given naloxone (narcan) to take home with you. This medication is used to potentially treat opiate overdose. If you decide you want to stop or cut down on how much you?re using, you can call or walk into our outpatient Addiction Treatment office: [facility] (M-F 9am-5p) [address] [place] [address], [phone] You may have been provided with safer injection?items, please take time to take care of YOU and your health. Use new supplies whenever possible to lessen the chances of infections and other illnesses.? ?If you need more supplies, please go [facility],? [address] [place] [address] OR you can call or text to coordinate delivery of safer supplies. You were also provided a list of several treatment providers in the area.? If you experience any worsening symptoms you cannot control please return to the ED or call 911. Please follow up at your next appointment. Things to look out for are fevers, chest pain, shortness of breath, severe pain, dizziness, fainting or any other concerns. Prescriptions: No Action buprenorphine-naloxone [Suboxone] 8-2 mg film 1 film sublingual BID Qty: 10 0RF omeprazole 40 mg capsule,delayed release(DR/EC) 40 mg PO DAILY Qty: 90 0RF Print Language: Vietnamese
[2024-08-20 18:23] VITALS: BP 116/73; PULSE 52; RESP 12; TEMP 37; O2SAT 100
[2024-08-20] MEDS: Magnesium Hydrox/Alum Hydrox 30 ML ORAL.SUSP PO (18:40)
[2024-08-20 20:31] VITALS: BP 115/64; PULSE 66; RESP 16; TEMP 36.9; O2SAT 94
[2024-08-20] MEDS: Midazolam HCl 2 MG/2 ML VIAL IM (22:52)
[2024-08-21 08:07] VITALS: BP 124/65; PULSE 69
--- NOTE | 2024-08-21 09:16 | PC.NURSE ---
Pt ambulatory to BR, steady gait.
[2024-08-21] MEDS: Buprenorphine/Naloxone 8/2 mg FILM 1 FILM SUBLINGUAL (09:40)
[2024-08-21] MEDS: Omeprazole 40 MG CAPSULE.DR PO (09:41)
[2024-08-21 09:47] VITALS: BP 124/65; PULSE 69; RESP 18; TEMP 36.6; O2SAT 97
--- NOTE | 2024-08-21 09:56 | PC.NURSE ---
Pts belongings returned at time of d/c: One bag of belongings from [employer] 3 One sealed back of moyer from [employer]--$998.00 Pt inventories all above items prior to d/c and confirms all items accounted for. Pt signs belongings list form for d/c Form placed to be filed with d/c signature page.
== END 2024-08-21 09:58 | disposition home or self-care (01) ==
PROVIDERS: Emergency Provider Internal Medicine
DX: F11.188 Opioid abuse with other opioid-induced disorder (principal); R11.15 Cyclical vomiting syndrome unrelated to migraine; K21.9 Gastro-esophageal reflux disease without esophagitis; F41.1 Generalized anxiety disorder; F43.0 Acute stress reaction; R10.13 Epigastric pain; Z71.51 Drug abuse counseling and surveillance of drug abuser
CPT/HCPCS: 93005; 96372; 99284; 99285; J2250

== ENCOUNTER → 2024-08-20 16:43 | Outpatient (BNV) | payer MEDICAID, SELFPAY | PROVIDERS: Emergency Provider Internal Medicine; Visit Provider Internal Medicine | DX: R10.13 Epigastric pain (principal) | CPT/HCPCS: 93010 ==

== ENCOUNTER 2024-12-23 15:20 | Emergency (ER) | payer MEDICAID, SELFPAY ==
--- NOTE | ~2024-12-23 | US_ITS ---
EXAMINATION: US TRIPLEX LOWER EXTREMITY, BILATERAL CLINICAL INFORMATION: Pain and swelling COMPARISON: None available. TECHNIQUE: Color-flow triplex imaging with spectral analysis and compression Doppler were performed on the bilateral lower extremities. FINDINGS: Respiratory variation, normal compression and augmented flow are noted throughout the bilateral lower extremities. The visualized common femoral vein, superficial femoral vein, profunda femoral vein, popliteal vein and midcalf peroneal and posterior tibial venous segments show no evidence of deep venous thrombosis bilaterally. There is no Mcgee's cyst. Enlarged left groin lymph node measuring 1.3 cm AP, 3.1 cm transverse. US/US venous duplex LE BI IMPRESSION: No evidence of deep venous thrombosis involving the bilateral lower extremities. Enlarged left groin lymph node measuring 1.3 cm AP. Electronically signed by: Karan Chambers MD 12/23/2024 04:34 PM EDT
[2024-12-23 15:25] VITALS: BP 116/55; PULSE 69; RESP 16; TEMP 36.3; O2SAT 97; BMI 26.8
--- NOTE | 2024-12-23 15:26 | ED_ITS ---
HPI - General Adult General Chief complaint: Extremity Problem Stated complaint: pain and swelling in both feet Related Data Previous Rx's ?Medication ?Instructions ?Recorded buprenorphine 8 mg-naloxone 2 mg 1 film sublingual BID #10 ea 03/17/21 sublingual film (Suboxone) omeprazole 40 mg capsule,delayed 40 mg PO DAILY #90 ca ps 08/20/24 release Allergies Allergy/AdvReac Type Severity Reaction Status Date / Time No Known Allergies Allergy Verified 12/23/24 15:29 [facility] Past Medical History Medical History Polysubstance abuse Surgical History No pertinent past surgical history Social History Social History Household Members: Family Housing: Apartment Do you presently have visiting nurse or other home services: No Alcohol intake: never Patient Tobacco Use Status: Current everyday Tobacco user Tobacco use type: Cigarette Second Hand Smoke Exposure: Yes Substance Use Type: Crack/Cocaine, Heroin, Marijuana and Opiates Advance Directives: No Advance Directives Information Provided: No Do you have a plan to hurt others: No Plan service: No Current occupational status: unemployed Physical Exam ED Vital Signs: Vital Signs - 24 hr 12/23/24 15:25 Temperature 97.3 F Pulse Rate 69 Respiratory Rate 16 Blood Pressure 116/55 L Pulse Oximetry 97 Oxygen Delivery Method Room Air BMI result Body Mass Index 26.8 Course Course Course Narrative: This is a rapid medical exam performed by Maynor Haines NP: Additional HPI, ROS, PE not included below will be deferred to primary provider. Patient is a 34-year-old Kyrgyz-speaking male presenting to the emergency department from [facility] where he was evaluated for pain and swelling to bilateral lower extremities. They referred him to the ED to rule out DVT. Plan: Labs, ultrasound Patient left the emergency department before myself or any of the other clinicians could review or explain physical exam findings, test results, need or lack there of for additional testing, treatment options, or a treatment plan. Medical Decision Making Lab Data 12/23/24 16:04 12/23/24 16:04 Labs: Lab Results 12/23/24 Range/Units 16:04 WBC 5.8 (4.8-10.8) X10*3/uL RBC 4.47 L (4.60-5.80) X10*6/uL Hgb 13.5 L (14.0-18.0) g/dl Hct 38.4 L (42.0-52.0) % MCV 85.9 (80.0-98.0) fL MCH 30.2 (27.0-33.0) pg MCHC 35.2 (31.0-36.0) g/dl RDW 13.1 (11.0-16.0) % Plt Count 281 (160-400) X10*3/uL MPV 9.0 L (9.4-12.4) fL Immature Gran % (Auto) 0.2 (0.0-0.4) % Neut % (Auto) 50.5 (45-73) % Lymph % (Auto) 38.4 (20-40) % [place] % (Auto) 9.2 (2-11) % Eos % (Auto) 1.2 (0-4) % Baso % (Auto) 0.5 (0-2) % Lymph # (Auto) 2.2 (1.2-4.9) X10*3/uL [place] # (Auto) 0.5 (0.1-1.2) X10*3/uL Eos # (Auto) 0.1 (0.0-0.4) X10*3/uL Baso # (Auto) 0.0 (0.0-0.2) X10*3/uL Abs Immat Gran (auto) 0.01 (0.00-0.03) X10*3/uL Absolute Neuts (auto) 2.9 (2.0-8.3) x10*3/uL Absolute Nucleated RBC 0.000 (0.0-0.012) X10*3/uL Nucleated RBC % (auto) 0.0 (0.0-0.2) /100WBC PT 12.5 H (10.9-12.4) SEC INR 1.1 (0.9-1.1) Sodium 138 (135-145) mmol/L Potassium 3.9 (3.3-5.1) mmol/L Chloride 107 (96-108) mmol/L Carbon Dioxide 28 (22-29) mmol/L Anion Gap 7 L (12-20) BUN 9 (9-16) mg/dL Creatinine 0.95 (0.5-1.4) mg/dL Estim Creat Clear Calc 107.4 Estimated GFR > 60 Random Glucose 121 H (60-115) mg/dL Calcium 9.2 (8.4-10.2) mg/dL Magnesium 1.9 (1.6-2.6) mg/dL Total Bilirubin 0.2 (0.0-1.0) mg/dL AST 19 (5-37) U/L ALT 11 (0-40) U/L Alkaline Phosphatase 80 (39-117) U/L Troponin I High Sens < 2.7 (<3.5-35.0) ng/L Total Protein 6.8 (6.5-8.0) g/dL Albumin 4.2 (3.5-5.0) g/dL Discharge Plan Discharge Clinical Impression: Lower extremity edema Patient Disposition: Left W/O Completing Treatment Prescriptions: No Action buprenorphine-naloxone [Suboxone] 8-2 mg film 1 film sublingual BID Qty: 10 0RF omeprazole 40 mg capsule,delayed release(DR/EC) 40 mg PO DAILY Qty: 90 0RF Discharge Date/Time: 12/23/24 19:57
[2024-12-23 16:17] LABS: MANUAL DIFF FLAG NO
[2024-12-23 16:20] LABS: Hematocrit 38.4 % (42.0-52.0); Hemoglobin 13.5 g/dl (14.0-18.0); Imm Gran Abs Auto 0.01 X10*3/uL (0.00-0.03); Imm Gran Pct Auto 0.2 % (0.0-0.4); Lymphocytes Absolute Auto 2.2 X10*3/uL (1.2-4.9); Mean Corpuscular HGB Conc 35.2 g/dl (31.0-36.0); Mean Corpuscular Hemoglobin 30.2 pg (27.0-33.0); Mean Corpuscular Volume 85.9 fL (80.0-98.0); NRBC Abs Auto 0.000 X10*3/uL (0.0-0.012); NRBC Pct Auto 0.0 /100WBC (0.0-0.2); Platelet Count 281 X10*3/uL (160-400); Red Blood Count 4.47 X10*6/uL (4.60-5.80); White Blood Count 5.8 X10*3/uL (4.8-10.8)
[2024-12-23 16:35] LABS: INTERNATIONAL NORM RATIO 1.1 (0.9-1.1); Prothrombin Time 12.5 SEC (10.9-12.4)
[2024-12-23 16:38] LABS: Alanine Aminotransferase 11 U/L (0-40); Albumin Level 4.2 g/dL (3.5-5.0); Alkaline Phosphatase 80 U/L (39-117); Anion Gap 7 (12-20); Aspartate Amino Transferase 19 U/L (5-37); Blood Urea Nitrogen 9 mg/dL (9-16); Calcium 9.2 mg/dL (8.4-10.2); Carbon Dioxide 28 mmol/L (22-29); Chloride 107 mmol/L (96-108); Creatinine Clr Calc Pharmacy 107.4; Estimated Glomerular Filt Rate > 60; Magnesium 1.9 mg/dL (1.6-2.6); Potassium 3.9 mmol/L (3.3-5.1); Sodium 138 mmol/L (135-145); Total Protein 6.8 g/dL (6.5-8.0)
[2024-12-23 16:46] LABS: Troponin-I High Sensitivity < 2.7 ng/L (<3.5-35.0)
== END 2024-12-23 19:57 | disposition left against medical advice (07) ==
PROVIDERS: Emergency Provider Emergency Medicine
DX: R60.0 Localized edema (principal); Z53.21 Procedure and treatment not carried out due to patient leaving prior to being seen by health care provider
CPT/HCPCS: 36415; 80053; 83735; 84484; 85025; 85610; 93970; 99281; 99284

== ENCOUNTER → 2024-12-23 15:40 | Outpatient (BNV) | payer MEDICAID, SELFPAY | PROVIDERS: Visit Provider Radiology Diagnostic Ultrasound | DX: M79.661 Pain in right lower leg (principal); M79.662 Pain in left lower leg; R22.43 Localized swelling, mass and lump, lower limb, bilateral | CPT/HCPCS: 93970 ==

== ENCOUNTER 2025-01-01 01:30 | Emergency (ER) | payer MEDICAID, SELFPAY ==
--- OUTSIDE RECORDS SUMMARY | 2024-12-23 14:00 | XMS_ITS | Encounter Summary ---
Author Organization [employer] [facility] Address [address] [place] [address] Care Team Providers Care Tassel Clipper Name Role Phone Rustam Mackenzie MD Primary Care Prov ider Reason for Referral * Imaging (STAT) - Closed Specialty Diagnoses / Procedures Referred By Contac t Referred To Contact Radiology Diagnoses Localized swelling of both lower legs Procedures US Doppler Ext Lower Venous Bilateral Sheri Gardiner MD [address] [place] [phone] Phone: tel: fax: [address] Phone: tel: fax: Referral ID Status Reason Start Date Expiration Date Visits Re quested Visits Authorized [id number] Closed 12/23/2024 12/23/2025 1 1 Reason for Visit * Reason Comments Knee Pain Encounter Details Date Type Department Care Team (Late st Contact Info) Description 12/23/2024 2:00 PM EDT Office Visit [facility] [address] [place] [address] [phone] Sheri Gardiner MD [address] [place] [phone] Localized swelling of both lower legs (Primary Dx) Social History Tobacco Use Types Packs/Day Years Used Date Smoking Tobacco: Every Day Cigarettes 0.5 17.8 Started: 2007 Smokeless Tobacco: Never Tobacco Cessation:Ready to Q uit: Not Asked; Counseling Given: Not Answered Alcohol Use Standard Drinks/Week Comments Never 0 (1 standard drink = 0.6 oz pur e alcohol) Depression Answer Date Recorded Patient Health Questionnaire-9 Score 6 09/11/2024 Patient Health Questionnaire-9 Score 6 09/11/2024 Last PHQ-9: Questionnaire Data Not on file 0 09/11/2024 Depression Answer Date Recorded Patient Health Questionnaire-2 Score 6 09/11/2024 Sex and Gender Information Value Date Recorded Sex Assigned at Male 09/11/2024 9:12 AM EDT Legal Sex Male 10:33 AM EST Gender Identity Male 09/11/2024 9:12 AM EDT Sexual Orientation Straight 09/11/2024 9: 12 AM EDT documented as of this encounter Last Filed Vital Signs Vital Sign Reading Time Taken Comments Blood Pressure 128/71 12/23/2024 2:20 PM EDT Pulse 70 12/23/2024 2:20 PM EDT Temperature 36.8 C (98.2 F) 12/23/2024 2:20 PM EDT Respiratory Rate 18 12/23/2024 2:20 PM EDT Oxygen Saturation 97% 12/23/2024 2:20 PM EDT Inhaled Oxygen Concentration - - Weight 82.6 kg (182 lb) 12/23/2024 2:20 PM EDT Height - - Body Mass Index - - documented in this encounter Progress Notes * Sheri Gardiner MD - 12/23/2024 2:00 PM EDT Subjective Patient ID: Johnathon John, 34 year odl man with opoid use disorder presents for bilateral leg pain. Bilateral Leg Pain and Swelling - Bilateral leg pain and swelling for 2 weeks prior to visit - Pain and swelling involve both legs and knees, with associated redness - Indentation noted from socks - Symptoms began after increased walking and standing - Hospitalization in August 2024 for abdominal pain and leg swelling - Denies recent IV drug use but appears intoxicated now and partner says currently using. Review of Systems Constitutional: Negative for fever and unexpected weight change. Respiratory: Negative for shortness of breath. Cardiovascular: Negative for chest pain. Gastrointestinal: Negative for abdominal pain. Genitourinary: Negative for difficulty urinating. Objective Visit Vitals BP 128/71 (BP Location: Right arm, Patient Position: Sitting, BP Cuff Size: Adult) Pulse 70 Temp 98.2 ??F (36.8 ??C) (Temporal) Resp 18 There is no height or weight on file to calculate BMI. Physical Exam Constitutional: Comments: Nodding but easily arousable HENT: Head: Comments: Poor dentition Neck: Comments: JVP flat - CARDIOVASCULAR: Pulses intact, normal temperature. - LUNGS: Mild wheezing. - SKIN: Bilateral lower extremity edema with mild erythema. - EXTREMITIES: Bilateral lower extremity edema with sock indentation jaramillo, normal hair distribution on toes. Assessment & Plan Localized swelling of both lower legs Orders: B Type Natriuretic Peptide (BNP); Future TSH with Reflex to Free T4; Future Basic Metabolic Panel; Future Albumin, Random Urine W/Creatinine; Future CBC auto differential; Future Hepatic Function Panel; Future US Doppler Ext Lower Venous Bilateral; Future Localized swelling of both lower legs: - Bilateral lower extremity edema and pain, etiology to be determined. Differential diagnosis includes deep vein thrombosis and possible cardiac involvement. - Ordered lower extremity ultrasound to evaluate for blood clots. Ordered laboratory tests at the hospital, including cardiac panel, to assess for heart- related causes. Coordinated with hospital to expedite testing. No future appointments. Addendum: Stat US was sent up day of appointment but patient did not go. He did not get labs or US done. documented in this encounter Plan of Treatment Scheduled Orders Name Type Priority Associated Diagnoses Orde r Schedule B Type Natriuretic Peptide (BNP) Lab Routine Localized swelling of both lower legs Expected: 12/23/2024 (Approximate), Expires: 12/23/2025 TSH with Reflex to Free T4 Lab Routine Localized swelling of both lower legs Expected: 12/23/2024 (Approximate), Expires: 12/23/2025 Basic Metabolic Panel Lab Routine Localized swelling of both lower legs Expected: 12/23/2024 (Approximate), Expires: 12/23/2025 Albumin, Random Urine W/Creatinine Lab Routine Localized swelling of both lower legs Expected: 12/23/2024 (Approximate), Expires: 12/23/2025 CBC auto differential Lab Routine Localized swelling of both lower legs Expected: 12/23/2024 (Approximate), Expires: 12/23/2025 Hepatic Function Panel Lab Routine Localized swelling of both lower legs Expected: 12/23/2024 (Approximate), Expires: 12/23/2025 US Doppler Ext Lower Venous Bilateral Imaging STAT Localized swelling of both lower legs Expected: 12/23/2024, Expires: 12/23/2025 documented as of this encounter Visit Diagnoses Diagnosis Localized swelling of both lower legs- Primary documented in this encounter Additional Health Concerns Assessment Noted Time PHQ-9 Depression Total Score: 6 09/12/19 10:28 AM EDT documented as of this encounter Care Teams Tassel Clipper Relationship Specialty Start Date End Date Rustam Mackenzie MD [address] [place] [phone] PCP - General Internal Medicine 09/11/24 documented as of this encounter
--- NOTE | ~2025-01-01 | XR_ITS ---
CLINICAL HISTORY: Shortness of Breath - patient uncooperative and not following instructions. jat 1 view chest x-ray Comparison: None provided Findings: Portions of the exam are obscured by overlying material. The lungs are clear. Normal size heart. No acute fracture. IMPRESSION: 1. No acute findings. This document has been electronically signed by: Kenneth Gallagher MD on 01/01/2025 04:42:23
--- NOTE | 2025-01-01 01:32 | ECG_ITS ---
Test Reason : CP Blood Pressure : */* mmHG Vent. Rate : 61 BPM Atrial Rate : 61 BPM P-R Int : 162 ms QRS Dur : 94 ms QT Int : 388 ms P-R-T Axes : 72 77 55 degrees QTcB Int : 390 ms Normal sinus rhythm Normal ECG When compared with ECG of 20-Aug-2024 16:49, No significant change was found Referred By: Generic ED Physician Electronically Signed By: Brennan Willoughby
[2025-01-01 01:46] VITALS: BP 123/60; PULSE 76; RESP 20; TEMP 36.2; O2SAT 98; BMI 27.9
[2025-01-01 02:05] VITALS: BP 125/67; PULSE 69; RESP 15; TEMP 36.4; O2SAT 98
--- NOTE | 2025-01-01 02:11 | ED_ITS ---
HPI - General Adult General Chief complaint: General Medical Stated complaint: SOB/chest pain Time Seen by Provider: 01/01/25 01:55 Source: patient Mode of arrival: ambulatory Limitations: no limitations History of Present Illness ED Provider: Kvng BRADFORD HPI narrative: The patient is a 34-year-old male presenting to the ED for evaluation of body aches, chest pains, shortness of breath, productive cough, and reported bloody stools for the past 5 days. Patient reports his family was sick with similar symptoms over the past week, advises he was seen at [facility] ER 4 days ago for these symptoms, workup was nondiagnostic and patient was discharged. Patient reports he returned to [facility] today for persistent symptoms but left the ED due to wait time and came to [place] ED for evaluation. The patient reports a history of narcotic abuse, reports he is currently under the care of the [facility], denies any recent narcotic use. The patient arrives to the ED with spastic and unpredictable behavior, unable to sit still, intermittently answers questions and then will randomly yell out in response to other questions. Patient is largely uncooperative with interview and exam but is eventually redirectable, behavior appears volitional. Related Data Previous Rx's ?Medication ?Instructions ?Recorded buprenorphine 8 mg-naloxone 2 mg 1 film sublingual BID #10 ea 03/17/21 sublingual film (Suboxone) omeprazole 40 mg capsule,delayed 40 mg PO DAILY #90 ca ps 08/20/24 release Allergies Allergy/AdvReac Type Severity Reaction Status Date / Time No Known Allergies Allergy Verified 01/01/25 01:48 Review of Systems 2 Review of Systems: Yes all other systems are reviewed and are negative [facility] Past Medical History Medical History Polysubstance abuse Surgical History No pertinent past surgical history Social History Social History Household Members: Family Housing: Apartment Do you presently have visiting nurse or other home services: No Alcohol intake: current Alcohol intake frequency: a few times a month Alcohol type: beer and wine Patient Tobacco Use Status: Current everyday Tobacco user Tobacco use type: Cigarette Second Hand Smoke Exposure: Yes Substance Use Type: Marijuana service: No Current occupational status: unemployed Physical Exam ED Vital Signs: Vital Signs - 24 hr 01/01/25 01:46 01/01/25 02:05 01/01/25 04:00 Temperature 97.2 F 97.5 F 98.2 F Pulse Rate 76 69 70 Respiratory Rate 20 15 18 Blood Pressure 123/60 125/67 116/66 Pulse Oximetry 98 98 95 Oxygen Delivery Method Room Air Room Air Room Air BMI result Body Mass Index 27.9 CONSTITUTIONAL: The patient appears agitated, spastic, unpredictable behavior, with dry heaving which appears volitional, otherwise non-toxic, well nourished and in no acute distress. Vital signs as documented. HEAD: Atraumatic, normocephalic. EYES: EOMs grossly intact, pupils equal, conjunctiva clear, no exudate. ENT: Nares patent, no discharge. Airway patent, no audible stridor, visible mucosa is pink and moist without noted lesions. NECK: Trachea is midline, no obvious masses or gross abnormalities. CHEST: Symmetric movement, normal appearance. LUNGS: LS present and CTAB, no w/r/r. Non-labored work of breathing. CARDIAC: Regular Rhythm, S1/S2 appreciated, no murmurs, rubs or gallops. ABDOMEN: Abdomen soft and non-tender x4 quadrants, no palpable masses or organomegaly. : Deferred. EXTREMITIES: Normal tone, moves all extremities spontaneously without reported pain. No obvious acute injury or deformity noted. NEURO: Alert and oriented x3, CN II-XII appear grossly intact. Cerebellar Functioning grossly intact. No obvious sensory or motor deficits. Speech clear and appropriate. PSYCH: Animated, agitated, labile affect. No reported suicidality or homicidality. SKIN: Warm, dry, color appropriate, normal turgor. No rashes noted. Medications Administered Discontinued Medications Generic Name Dose Route Start Last Admin Trade Name Freq PRN Reason Stop Dose Admin Buprenorphine/Naloxone 1 film 01/01/25 04:52 01/01/25 05:01 Buprenorphine/Naloxone 8/2 Mg Film SUBLINGUAL 01/01/25 04:53 1 film ONCE ONE Administration Droperidol 0.625 mg 01/01/25 04:22 01/01/25 04:27 Droperidol 5 Mg/2 Ml Vial IVPUSH 01/01/25 04:23 0.625 mg ONCE ONE Administration Sodium Chloride 1,000 mls @ 999 mls/hr 01/01/25 02:00 01/01/25 03:43 Ns IV 01/01/25 03:00 Infused .Q1H1M SHEKHAR Infusion Sodium Chloride 1,000 mls @ 999 mls/hr 01/01/25 03:45 01/01/25 05:38 Ns IV 01/01/25 04:45 Infused .Q1H1M SHEKHAR Infusion Ketorolac Tromethamine 15 mg 01/01/25 03:43 01/01/25 04:03 Ketorolac Tromethamine 15 Mg/Ml Vial IVPUSH 01/01/25 03:44 15 mg ONCE ONE Administration Ondansetron HCl 4 mg 01/01/25 02:00 01/01/25 02:38 Ondansetron Hcl 4 Mg/2 Ml Vial IVPUSH 01/01/25 02:01 4 mg ONCE ONE Administration Ondansetron HCl 4 mg 01/01/25 03:43 01/01/25 04:03 Ondansetron Hcl 4 Mg/2 Ml Vial IVPUSH 01/01/25 03:44 4 mg ONCE ONE Administration Medical Decision Making Medical Decision Making MDM Narrative: 2:11 AM 01/01/2025 (Jared BRADFORD): The patient is a 34-year-old male presenting to the ED for evaluation of body aches, chest pains, shortness of breath, productive cough, and reported bloody stools for the past 5 days. Patient reports his family was sick with similar symptoms over the past week, advises he was seen at [facility] ER 4 days ago for these symptoms, workup was nondiagnostic and patient was discharged. Patient reports he returned to [facility] today for persistent symptoms but left the ED due to wait time and came to [place] ED for evaluation. The patient reports a history of narcotic abuse, reports he is currently under the care of [facility], denies any recent narcotic use. The patient arrives to the ED with spastic and unpredictable behavior, unable to sit still, intermittently answers questions and then will randomly yell out in response to other questions. Patient is largely uncooperative with interview and exam but is eventually redirectable, behavior appears volitional. On exam the patient has no localized abdominal tenderness, lung sounds are clear to auscultation bilaterally. No other acute findings. The patient is normotensive, afebrile, without tachycardia, tachypnea, or hypoxia. The patient's exam does not match his complaint/volitional presentation. The patient will be treated with IV fluid hydration, Zofran, and we will obtain a cardiac, viral, infectious, and toxicology workup. Given no abdominal tenderness there is no indication for CT imaging at this time. Of note the patient was seen in this ED on 12/23/2024, 9 days ago, for lower extremity pain and swelling, but left without treatment complete. Patient was also seen on 08/20/2024 for similar complaints as this evening, required Narcan while in the ED at that time, patient woke after Narcan with severe anxiety and vomiting, requiring Versed. The patient at that time was diagnosed with opiate abuse, cyclic vomiting syndrome, anxiety, and GERD. The patient had a negative medical workup including CT abdomen and pelvis at that time. 3:32 AM 01/01/2025 (Jared BRADFORD): The patient's laboratory evaluation reveals mild leukocytosis at 11.3, no anemia, electrolyte abnormality, or DAREN. LFTs are unremarkable, troponin is negative, EKG is nonischemic, alcohol level is negative. Viral swabs are negative. Urinalysis and UDS are pending. The patient currently appears more comfortable following IV fluid hydration and Zofran. 3:45 AM 01/01/2025 (Jared BRADFORD): The patient is having recurrence of symptoms with additional dry heaving. Patient is currently providing a urine sample. Patient will be treated with additional Zofran, Toradol, and IV fluid hydration. Upon additional chart review the patient was seen in this ED in October and February of 2021 for very similar presentation, symptoms were found to be secondary to crack cocaine abuse. During those visits the patient required chemical restraint, patient does not required chemical restraint at this time. We will continue to monitor. 4:50 AM 01/01/2025 (Jared BRADFORD): Chest x-ray shows no acute pathology. The patient continues to have dry heaving and is unable to sit still. UDS is positive for Suboxone, negative otherwise. The exact cause of this behavior is not entirely clear, we will treat with droperidol for intractable vomiting. Given the patient's persistent symptoms, we will also send the patient for CT abdomen and pelvis despite no focal tenderness, leukocytosis, fever, or other acute abnormalities on workup. The patient reports he takes his Suboxone every day at 05:00, we will administer Suboxone while in the ED. 5:06 AM 01/01/2025 (Jared BRADFORD): Upon receiving 8 mg Suboxone, patient reports he receives 24 mg per dose. The patient's pharmacy/home medication record was reviewed and home meds confirm patient takes 8 mg 3 times a day, for a total of 24. Patient was advised of his prescription medication record, and began arguing stating that the computer was incorrect, demanding 24 mg. Patient was advised we would only give what was verifiable. Of note during conversations the patient's spastic movements, erratic yelling, dry heaving, and inability to sit still resolves, but then resumes after the conversation concludes. Presentation is highly concerning for malingering behavior. 5:27 AM 01/01/2025 (Jared BRADFORD): Patient is now declining CT and demanding additional suboxone, stating his symptoms are secondary to lack of suboxone. Patient was again advised that he will not recieve suboxone in greater amounts than his prescribed and verified dose. The patient is now requesting to leave the ED AMA. Patient is able to state his understanding of the risks of failure to diagnosis the source of his symptoms. Patient is alert and oriented x4, and demonstrates capacity to make his own medical decisions. While being signed out AMA the patient became verbally assaultive towards this provider and nursing staff. Patient was escorted out of the ED by security. Admission/Observation Consideration of admission/observation: Escalation of care including admission/observation considered Lab Data [facility] Lab Attestation statement: I reviewed the patient's lab results. 01/01/25 02:33 01/01/25 02:33 Labs: Lab Results 01/01/25 01/01/25 01/01/25 Range/Units 02:08 02:33 03:49 WBC 11.3 H (4.8-10.8) X10*3/uL RBC 5.12 (4.60-5.80) X10*6/uL Hgb 15.0 (14.0-18.0) g/dl Hct 43.6 (42.0-52.0) % MCV 85.2 (80.0-98.0) fL MCH 29.3 (27.0-33.0) pg MCHC 34.4 (31.0-36.0) g/dl RDW 12.7 (11.0-16.0) % Plt Count 270 (160-400) X10*3/uL MPV 10.1 (9.4-12.4) fL Immature Gran % (Auto) 0.4 (0.0-0.4) % Neut % (Auto) 77.8 H (45-73) % Lymph % (Auto) 14.6 L (20-40) % Gonzales % (Auto) 6.4 (2-11) % Eos % (Auto) 0.4 (0-4) % Baso % (Auto) 0.4 (0-2) % Lymph # (Auto) 1.7 (1.2-4.9) X10*3/uL Gonzales # (Auto) 0.7 (0.1-1.2) X10*3/uL Eos # (Auto) 0.0 (0.0-0.4) X10*3/uL Baso # (Auto) 0.0 (0.0-0.2) X10*3/uL Abs Immat Gran (auto) 0.04 H (0.00-0.03) X10*3/uL Absolute Neuts (auto) 8.8 H (2.0-8.3) x10*3/uL Absolute Nucleated RBC 0.000 (0.0-0.012) X10*3/uL Nucleated RBC % (auto) 0.0 (0.0-0.2) /100WBC Sodium 141 (135-145) mmol/L Potassium 3.6 (3.3-5.1) mmol/L Chloride 106 (96-108) mmol/L Carbon Dioxide 21 L (22-29) mmol/L Anion Gap 18 (12-20) BUN 12 (9-16) mg/dL Creatinine 1.05 (0.5-1.4) mg/dL Estim Creat Clear Calc 112.0 Estimated GFR > 60 Random Glucose 113 (60-115) mg/dL Calcium 9.6 (8.4-10.2) mg/dL Total Bilirubin 0.5 (0.0-1.0) mg/dL AST 25 (5-37) U/L ALT 15 (0-40) U/L Alkaline Phosphatase 84 (39-117) U/L Troponin I High Sens < 2.7 (<3.5-35.0) ng/L Total Protein 8.2 H (6.5-8.0) g/dL Albumin 5.0 (3.5-5.0) g/dL Lipase 69 (8-78) U/L Urine Color Yellow Urine Appearance Clear Urine pH 7.5 (5.0-9.0) Ur Specific [place] 1.015 (1.005-1.025) Urine Protein Negative (Neg-Trace) mg/dL Urine Glucose (UA) Negative (Negative) mg/dL Urine Ketones Negative (Negative) mg/dL Urine Blood Negative (Negative) Urine Nitrite Negative (Negative) Ur Leukocyte Esterase Negative (Negative) Urine Opiates Screen Not Detected (Not Detect) Ur Buprenorphine Scrn Positive H (Not Detect) ng/mL Ur Oxycodone Screen Not Detected (Not Detect) ng/mL Urine Methadone Screen Not Detected (Not Detect) ng/mL Urine Fentanyl Screen Not Detected (Not Detect) Ur Barbiturates Screen Not Detected (Not Detect) Ur Phencyclidine Scrn Not Detected (Not Detect) Ur Amphetamines Screen Not Detected (Not Detect) U Benzodiazepines Scrn Not Detected (Not Detect) Urine Cocaine Screen Not Detected (Not Detect) U Marijuana (THC) Screen Not Detected (Not Detect) Ethyl Alcohol < 10 mg/dL COVID-19 (SILVIA) Negative (Negative) COVID-19 Clin Com See Note Influenza Type A (ERICA) Negative (Negative) Influenza Type B (ERICA) Negative (Negative) Influenza A & B Note See Note Independent Interpretation I performed an independent interpretation of an: EKG (EKG shows sinus rhythm with a rate of 61, no evidence of acute ischemia, no ST elevation, no ectopy. QTC 390. Compared to previous on 08/20/2024 there are no significant morphology changes.) Radiology Impression Discussion of test interpretation with radiology: I have reviewed the radiologist's reading. Radiologist Impression: 1 view chest x-ray Comparison: None provided Findings: Portions of the exam are obscured by overlying material. The lungs are clear. Normal size heart. No acute fracture. IMPRESSION: 1. No acute findings. This document has been electronically signed by: Kenneth Gallagher MD on 01/01/2025 04:42:23 Discharge Plan Discharge Clinical Impression: Nausea, Malingering Patient Disposition: Left Against Medical Advice Instructions: Acute Nausea and Vomiting (ED) Additional Instructions: Thank you for choosing [facility]'s Emergency Department for your care today. Thankfully your laboratory evaluation, vital signs, chest x-ray, urinalysis, viral swabs, and exam are all reassuring. It was recommended that you undergo CT imaging of your abdomen due to your ongoing nausea with dry heaving, you declined this CT imaging and instead are choosing to leave the ED against medical advice. You have stated your understanding that by not completing your recommended evaluation or treatment we are unable to fully exclude all potential emergent processes which may be contributing to your symptoms. Failure to exclude dangerous causes of your symptoms could result in worsening pain, decreased quality of life, and . Please understand that your decision to leave against medical advice today does not preclude you from returning to the ED for re-evaluation if you change your mind at any time. It is extremely important that you follow up with your primary care physician for re-evaluation, additional management of your symptoms, and continued preventative care. If you do not have a primary care physician, please call the [facility] at [phone] to establish a new primary care physician. While waiting to establish your new primary care physician, you can call our [facility] at [phone] for non-emergency needs. Please return to the emergency department if you change your mind regarding her care, develop a severe or sudden change in your symptoms, a fever over 100.4 that does not improve with Tylenol or Ibuprofen, recurrent vomiting, or any other new or worsening symptoms or concerns. Prescriptions: No Action buprenorphine-naloxone [Suboxone] 8-2 mg film 1 film sublingual BID Qty: 10 0RF omeprazole 40 mg capsule,delayed release(DR/EC) 40 mg PO DAILY Qty: 90 0RF Referrals: [facility] [Primary Care Provider, Medical] Clinical Impression: Malingering; Nausea Stand Alone Forms: Against Medical Advice Discharge Date/Time: 01/01/25 05:45 Print Language: Icelandic
--- OUTSIDE RECORDS SUMMARY | 2025-01-01 02:11 | XMS_ITS | Clinical Summary ---
Author Organization [employer] Address [address] [place] [address] Care Team Providers Care Fashion Editor Name Role Phone Rustam Mackenzie MD Primary Care Prov ider Allergies No known active allergies Medications * This document contains information received from the source organization and may not represent a complete record from that organization. cloNIDine (Catapres) 0.2 MG tablet Take 1 tablet (0.2 mg) by mouth 3 times daily. 90 tablet 2 09/11/2024 Active hydrOXYzine HCl (Atarax) 25 MG tablet Take 1 tablet (25 mg) by mouth every 6 (six) hours if needed for anxiety. 120 tablet 3 09/11/2024 Active Active Problems Problem Noted Date Diagnosed Date Encounter for medical examination to establish c are 09/11/2024 Assessment & Plan (09/11/2024 11:05 AM EDT): Last pcp visit 11 year ago ER: abdominal pain Hospitalization: Pmhx- Pshx: left 2nd, left elbow All: - Meds: suboxone, clonidine, hydroxyzine Epigastric abdominal pain 09/11/2024 Assessment & Plan (09/11/2024 11:37 AM EDT): Will refer to GI for evaluation, lifestyle modifications reinforced Anxiety 09/11/2024 Assessment & Plan (09/11/2024 11:40 AM EDT): Will refer to [facility], no active suicidal/homicidal ideas Encounters * This document contains information received from the source organization and may not represent a complete record from that organization. Date Type Department Care Team Description 12/23/2024 2:00 PM EDT Office Visit [facility] [address] [place] [phone] Sheri Gardiner MD Localized swelling of both lower legs (Primary Dx) 12/23/2024 Travel 12/22/[address] [phone] Rustam Mackenzie MD Nurse Triage 12/10/[address] [phone] Rustam Mackenzie MD No Show 12/09/2024 Telephone [facility] [address] [place], [place] [phone] Rustam Mackenzie MD chart prep 12/03/2024 Patient Outreach [address] [phone] Rustam Mackenzie MD Pre-visit Planning (Pre visit planning unable to LVM ) from Last 3 Months Family History Medical History Relation Name Comments No Known Problems Father Diabetes Mother Lung cancer Mother Relation Name Status Comments Father Mother Social History Tobacco Use Types Packs/Day Years [...] Orientation Straight 09/11/2024 9: 12 AM EDT Last Filed Vital Signs Vital Sign Reading [...] - - Body Mass Index - - Plan of Treatment Health Maintenance Due Date Last Done Comments HIV Screening 1988 Lipid Panel 1988 SDOH Screening 1988 Disability Screening 1988 Alcohol/Substance Use Screening 2000 Family Planning (PISQ) 2003 HPV Vaccines (1 - Male 3-dos e series) 2003 Hepatitis C Screening 2006 DTaP/Tdap/Td Vaccines (1 - Tdap) 2007 Hepatitis B Vaccines (1 of 3 - 19+ 3-dose series) 2007 Pneumococcal Vaccine: Pediatrics (0 to 5 Years) and At-Risk Patients (6 to 49) Years (1 of 2 - PCV) 2007 COVID-19 Vaccine (1 - 2023-2 5 season) 2024 Influenza Vaccine (#1) 2024 Depression Screening 09/11/2025 09/11/2024, 09/11/2024 Tobacco Screening 12/23/2025 12/23/2024 Zoster Vaccines (1 of 2) 2038 RSV Patients and Patients Aged 60 years or older (1 - 1-dose 75+ series) 2063 HIB Vaccines Aged Out No longer eligi [...] patient's age to complete this topic Meningococcal Vaccine Aged Out No jackie taran eligible based on patient's age to complete this topic RSV under 20 months Aged Out No longe r eligible based on patient's age to complete this topic Rotavirus Vaccines Aged Out No longer eligible based on patient's age to complete this topic Insurance [facility] C3 Care Teams Fashion Editor Relationship Specialty Start Date End Date Rustam Mackenzie MD [address] [place] [id number] PCP - General Internal Medicine 09/11/24
[2025-01-01 02:39] LABS: IDNOW Serial# 08D9AD1C; Influenza B2 Negative (Negative)
[2025-01-01 02:40] LABS: COVID-19 Test Negative (Negative); IDNOW Serial# 6674DD1D
[2025-01-01 02:42] LABS: Hematocrit 43.6 % (42.0-52.0); Hemoglobin 15.0 g/dl (14.0-18.0); Imm Gran Abs Auto 0.04 X10*3/uL (0.00-0.03); Imm Gran Pct Auto 0.4 % (0.0-0.4); Lymphocytes Absolute Auto 1.7 X10*3/uL (1.2-4.9); MANUAL DIFF FLAG NO; Mean Corpuscular HGB Conc 34.4 g/dl (31.0-36.0); Mean Corpuscular Hemoglobin 29.3 pg (27.0-33.0); Mean Corpuscular Volume 85.2 fL (80.0-98.0); NRBC Abs Auto 0.000 X10*3/uL (0.0-0.012); NRBC Pct Auto 0.0 /100WBC (0.0-0.2); Platelet Count 270 X10*3/uL (160-400); Red Blood Count 5.12 X10*6/uL (4.60-5.80); White Blood Count 11.3 X10*3/uL (4.8-10.8)
[2025-01-01 03:01] LABS: Alanine Aminotransferase 15 U/L (0-40); Albumin Level 5.0 g/dL (3.5-5.0); Alkaline Phosphatase 84 U/L (39-117); Anion Gap 18 (12-20); Aspartate Amino Transferase 25 U/L (5-37); Blood Urea Nitrogen 12 mg/dL (9-16); Calcium 9.6 mg/dL (8.4-10.2); Carbon Dioxide 21 mmol/L (22-29); Chloride 106 mmol/L (96-108); Creatinine Clr Calc Pharmacy 112.0; Estimated Glomerular Filt Rate > 60; Potassium 3.6 mmol/L (3.3-5.1); Sodium 141 mmol/L (135-145); Total Protein 8.2 g/dL (6.5-8.0)
[2025-01-01 03:02] LABS: Troponin-I High Sensitivity < 2.7 ng/L (<3.5-35.0)
[2025-01-01 03:49] LABS: Lipase 69 U/L (8-78)
[2025-01-01 03:56] LABS: Appearance Urine Clear; Glucose Urine UA Negative (Negative); PH 7.5 (5.0-9.0); Specific Gravity - Urine 1.015 (1.005-1.025)
[2025-01-01 04:00] VITALS: BP 116/66; PULSE 70; RESP 18; TEMP 36.8; O2SAT 95
[2025-01-01 04:05] LABS: Cannabinoid Screen Urine Not Detected (Not Detect)
--- NOTE | 2025-01-01 05:31 | PC.NURSE ---
pt standing up in room with dr at bedside. pt yelling about needing additional dose of suboxone. MD explaining he verified the dose and pt was given the amount shown in his chart. pt then stated he wanted to refuse have the CT scan and wants to leave. pt continues to yell, while attempting to remove pt tele leads pt started pulling them off himself. per MD call security to escort pt out of facility at this time. pt left department without signing any paperwork ambulating w/o difficulty and accompanied by security
== END 2025-01-01 05:45 | disposition left against medical advice (07) ==
PROVIDERS: Physician Assistant; Emergency Provider Emergency Medicine
DX: R11.2 Nausea with vomiting, unspecified (principal); R06.02 Shortness of breath; R07.89 Other chest pain; M79.10 Myalgia, unspecified site; K92.1 Melena; F17.210 Nicotine dependence, cigarettes, uncomplicated; Z11.52 Encounter for screening for COVID-19; Z76.5 Malingerer [conscious simulation]; Z79.899 Other long term (current) drug therapy; Z51.81 Encounter for therapeutic drug level monitoring
CPT/HCPCS: 36415; 71045; 80053; 80307; 81003; 83690; 84484; 85025; 87502; 87635; 93005; 96361; 96374; 96375; 96376; 99285; J1790; J1885; J2405

== ENCOUNTER → 2025-01-01 01:32 | Outpatient (BNV) | payer MEDICAID, SELFPAY | PROVIDERS: Emergency Provider Emergency Medicine; Visit Provider Internal Medicine Cardiovascular Disease | DX: R07.9 Chest pain, unspecified (principal) | CPT/HCPCS: 93010 ==

== ENCOUNTER → 2025-01-01 02:05 | Outpatient (BNV) | payer MEDICAID, SELFPAY | PROVIDERS: Emergency Provider Emergency Medicine; Visit Provider Specialist | DX: R06.02 Shortness of breath (principal) | CPT/HCPCS: 71045 ==

== ENCOUNTER 2025-02-09 09:17 | Outpatient (REF) | payer MEDICAID, SELFPAY ==
--- OUTSIDE RECORDS SUMMARY | 2025-02-05 10:15 | XMS_ITS | Encounter Summary ---
Author Organization [employer] Address [address] [place] [address] Care Team Providers Care Fixture Relamper Name Role Phone Rustam Mackenzie MD Primary Care Prov ider Encounter Details Date Type Department Care Team (Late st Contact Info) Description 02/05/2025 10:15 AM EST Office Visit [facility] [address] [place] [address] Rustam Mackenzie MD [address] [place] [address] Bloating (Primary Dx); Epigastric abdominal pain Social History Tobacco Use Types Packs/Day Years Used Date Smoking Tobacco: Every Day Cigarettes 0.5 17.9 Started: 2007 Smokeless Tobacco: Never Alcohol Use Standard Drinks/Week Comments Never 0 (1 standard drink = 0.6 oz pur e alcohol) Depression Answer Date Recorded Patient Health Questionnaire-9 Score 6 09/11/2024 Patient Health Questionnaire-9 Score 6 09/11/2024 Last PHQ-9: Questionnaire Data Not on file 0 09/11/2024 Housing Stability Answer Date Recorded What is your housing situation today? I have hodan sheikh 02/05/[address] you li ve. Do you have problems with any of the following? None of the above 02/05/2025 Food Insecurity Answer Date Recorded Within the past 12 months, y ou worried that your food would run out before you got money to buy more: Sometimes True 2024 Within the past 12 months,th e food you bought just didn't last and you didn't have enough money to get more: Sometimes True 02/05/2025 Transportation Answer Date Recorded In the past 12 months, has l ack of transportation kept you from medical appts, meetings, work or from getting things needed for daily living? No 02/05/2025 Utilities Answer Date Recorded In the past 12 months, has t he electric, gas, oil or water company threatened to shut off services in your home? No 02/05/2025 Depression Answer Date Recorded Patient Health Questionnaire-2 Score 6 09/11/2024 Internet Access Answer Date Recorded Internet Access Q1 Yes 02/05/2025 Internet Access Q2 Not on file 02/05/2025 Sex and Gender Information Value Date Recorded Sex Assigned at Male 09/11/2024 9:12 AM EDT Legal Sex Male 10:33 AM EST Gender Identity Male 09/11/2024 9:12 AM EDT Sexual Orientation Straight 09/11/2024 9: 12 AM EDT documented as of this encounter Last Filed Vital Signs Vital Sign Reading Time Taken Comments Blood Pressure 129/76 02/05/2025 10:32 AM EST Pulse 74 02/05/2025 10:32 AM EST Temperature 36.3 C (97.4 F) 02/05/2025 10:32 AM EST Respiratory Rate 20 02/05/2025 10:32 AM EST Oxygen Saturation - - Inhaled Oxygen Concentration - - Weight 73.5 kg (162 lb) 02/05/2025 10:32 AM EST Height 175.3 cm (5' 9 ) 02/05/2025 10:32 AM EST Body Mass Index 23.92 02/05/2025 10:32 AM EST documented in this encounter Progress Notes * Rustam Paredes MD - 02/05/2025 10:15 AM EST Subjective Patient ID: Johnathon John is a 34 y.o. male who presents for No chief complaint on file.. Abdominal Pain This is a chronic problem. The pain is located in the epigastric region. The quality of the pain iscramping, sharp and aching. The abdominal pain radiates to the epigastric region. Review of Systems Gastrointestinal: Positive for abdominal pain. Objective Physical Exam Constitutional: Appearance: Normal appearance. Cardiovascular: Rate and Rhythm: Normal rate. Heart sounds: No murmur heard. Abdominal: General: Abdomen is flat. There is no distension. Tenderness: There is no abdominal tenderness. There is no guarding or rebound. Neurological: General: No focal deficit present. Mental Status: He is alert and oriented to person, place, and time. Psychiatric: Mood and Affect: Mood normal. Behavior: Behavior normal. Assessment/Plan Problem List Items Addressed This Visit Epigastric abdominal pain Followed by gastroenterology, on omeprazole, will follow up reccomendations Relevant Medications ondansetron (Zofran) 4 MG tablet omeprazole (PriLOSEC) [address] capsule Bloating - Primary Will send h pylori test, Relevant Medications ondansetron (Zofran) 4 MG tablet omeprazole (PriLOSEC) [address] capsule Other Relevant Orders Helicobacter pylori Antigen, EIA, Stool documented in this encounter Miscellaneous Notes * Assessment & Plan Note - Rustam Paredes MD - 02/05/2025 1:38 PM ESTAssociated Problem(s): Epigastric abdominal pain Followed by gastroenterology, on omeprazole, will follow up reccomendations * Assessment & Plan Note - Rustam Paredes MD - 02/05/2025 1:37 PM ESTAssociated Problem(s): Bloating Will send h pylori test, documented in this encounter Plan of Treatment Scheduled Orders Name Type Priority Associated Diagnoses Orde r Schedule Helicobacter pylori Antigen, EIA, Stool Lab Routine Bloating Expected: 02/05/2025, Expires: 02/05/2026 documented as of this encounter Visit Diagnoses Diagnosis Bloating- Primary Flatulence, eructation, and gas pain Epigastric abdominal pain Abdominal pain, epigastric documented in this encounter Additional Health Concerns Assessment Noted Time PHQ-9 Depression Total Score: 6 09/12/19 25 10:28 AM EDT documented as of this encounter Care Teams Fixture Relamper Relationship Specialty Start Date End Date Rustam Mackenzie MD [address] [place] [id number] PCP - General Internal Medicine 09/11/24 documented as of this encounter
--- OUTSIDE RECORDS SUMMARY | 2025-02-09 10:25 | XMS_ITS | Clinical Summary ---
Author Organization [employer] Address [address] [facility] [address] [place] [address] Care Team Providers Care Adult Day Care Worker Name Role Phone Rustam Mackenzie MD Primary Care Prov ider Allergies No known active allergies Medications * This document contains information received from the source organization and may not represent a complete record from that organization. cloNIDine (Catapres) 0.2 MG tablet Take 0.2 mg by mouth 2 times daily. Active hydrOXYzine HCl (Atarax) 25 MG tablet Take 25 mg by mouth every 6 (six) hours if needed for anxiety. Active sertraline (Zoloft) 50 MG tablet Take 50 mg by mouth Once per day. Active ondansetron (Zofran) 4 MG tablet Take 4 mg by mouth every 8 (eight) hours if needed for nausea or vomiting. Active QUEtiapine (SEROquel) 50 MG tablet Take 50 mg by mouth at bedtime. Active omeprazole (PriLOSEC) [address] capsule Take 40 mg by mouth before breakfast. Do not crush or chew. Active cloNIDine (Catapres) 0.2 MG tablet Take 1 tablet (0.2 mg) by mouth 3 times daily. 90 tablet 2 5 02/06/20 25 Discontinued hydrOXYzine HCl (Atarax) 25 MG tablet Take 1 tablet (25 mg) by mouth every 6 (six) hours if needed for anxiety. 120 tablet 3 5 02/06/20 25 Discontinued Active Problems Problem Noted Date Diagnosed Date Bloating 02/05/2025 Assessment & Plan (02/05/2025 1:37 PM EST): Will send h pylori test, Encounter for medical examination to establish c are 09/11/2024 Assessment & Plan (09/11/2024 11:05 AM EDT): Last pcp visit 11 year ago ER: abdominal pain Hospitalization: P[facility]x- Pshx: left 2nd, left elbow All: - Meds: suboxone, clonidine, hydroxyzine Epigastric abdominal pain 09/11/2024 Assessment & Plan (02/05/2025 1:38 PM EST): Followed by gastroenterology, on omeprazole, will follow up reccomendations Assessment & Plan (09/11/2024 11:37 AM EDT): Will refer to GI for evaluation, lifestyle modifications reinforced Anxiety 09/11/2024 Assessment & Plan (09/11/2024 11:40 AM EDT): Will refer to BH, no active suicidal/homicidal ideas Encounters Date Type Department Care Team Description 02/05/2025 10:15 AM EST Office Visit [facility] [address] [place] [address] Rustam Mackenzie MD Bloating (Primary Dx); Epigastric abdominal pain 02/05/2025 Travel 02/04/2025 Telephone [facility] [address] [place] [address] Rustam Mackenzie MD chart prep 01/07/2025 Telephone [facility] [address] [place] [address] Gerson Bangura MD 01/05/2025 3:00 PM EDT Office Visit [facility] [address] [place] [address] Gerson Bangura MD Other chest pain (Primary Dx); Bilateral leg edema; Functional diarrhea; Rectal bleed 01/05/2025 Travel 01/05/2025 Telephone [facility] [address] [place] [address] Rustam Mackenzie MD ER Follow-up 01/01/2025 Orders Only [facility] External Provider, [facility] 12/23/2024 2:00 PM EDT Office Visit [facility] [address] [place] [phone] Sheri Gardiner MD Localized swelling of both lower legs (Primary Dx) 12/23/2024 Travel 12/22/[address] [address] Rustam Mackenzie MD Nurse Triage 12/10/[address] [phone] Rustam Mackenzie MD No Show 12/09/2024 Telephone [facility] MED & PEDS [address] [place], [place] [phone] Rustam Mackenzie MD chart prep 12/03/2024 Patient Outreach [address] [address] Rustam Mackenzie MD Pre-visit Planning (Pre visit planning unable to LVM ) from Last 3 Months Family History Medical History Relation Name Comments No Known Problems Father Diabetes Mother Lung cancer Mother Relation Name Status Comments Father Mother Social History Tobacco Use Types Packs/Day Years Used Date Smoking Tobacco: Every Day Cigarettes 0.5 17.9 Started: 2007 Smokeless Tobacco: Never Tobacco Cessation:Ready [...] is your housing situation today? I have hodanmeredith sheikh 02/05/[address] you [...] 20 02/05/2025 10:32 AM EST Oxygen Saturation 90% 01/05/2025 3:02 PM EDT Inhaled Oxygen Concentration - - Weight 73.5 kg (162 lb) 02/05/2025 10:32 AM EST Height 175.3 cm (5' 9 ) 02/05/2025 10:32 AM EST Body Mass Index 23.92 02/05/2025 10:32 AM EST Plan of Treatment Health Maintenance Due Date Last Done Comments HIV Screening 1990 Lipid Panel 1988 Family Planning (PISQ) 2003 HPV Vaccines (1 - Male 3-dos e series) 2003 Hepatitis C Screening 2006 DTaP/Tdap/Td Vaccines (1 - Tdap) 2007 Hepatitis B Vaccines (1 of 3 - 19+ 3-dose series) 2007 Pneumococcal Vaccine: Pediatrics (0 to 5 Years) and At-Risk Patients (6 to 49) Years (1 of 2 - PCV) 2007 COVID-19 Vaccine (1 - 2024-2 6 season) 2024 Influenza Vaccine (#1) 2024 Depression Screening 09/11/2025 09/11/2024, 09/11/2024 Tobacco Screening 01/05/2026 01/05/2025 Alcohol/Substance Use Screening 02/05/2026 02/05/2025 Disability Screening 02/05/2026 02/05/2025 SDOH Screening 02/05/2026 02/05/2025 Zoster Vaccines (1 of 2) 2038 RSV [...] on patient's age to complete this topic Procedures Procedure Name Priority Date/Time Associated Diagnosis Comments AMB REFERRAL TO GASTROENTEROLOGY Routine 02/01/2025 Functional diarrhea Rectal bleed ECG 12-LEAD Routine 01/05/2025 3:55 PM EDT Other chest pain XR CHEST 1 VIEW Routine 01/01/2025 4:42 AM EDT DRUG MONITOR, PANEL 1, SCREEN, URINE Routine 01/01/2025 3:49 AM EDT URINALYSIS WITH REFLEX MICROSCOPIC Routine 01/01/2025 3:49 AM EDT LIPASE Routine 01/01/2025 2:33 AM EDT HIGH SENSITIVITY TROPONIN I Routine 01/01/2025 2:33 AM EDT ETHANOL Routine 01/01/2025 2:33 AM EDT COMPREHENSIVE METABOLIC PANEL Routine 01/01/2025 2:33 AM EDT CBC WITH AUTO DIFFERENTIAL Routine 01/01/2025 2:33 AM EDT COVID-19 ID NOW ([employer]) Routine 025 2:08 AM EDT INFLUENZA A B2 ID NOW (ST) Routine 01/01/2025 2:08 AM EDT from Last 3 Months Results * Referral to Gastroenterology (02/01/2025) us Gerson Bangura MD OUTPATIENT REFERRAL ORDERAB LES Final Result * ECG 12 lead (01/05/2025 3:55 PM EDT) Narrative Gerson Banugra MD - 01/05/2025 3:55 PM EDT Heart rate 63 beats per minute. Chest [place] 69 degrees. Normal sinus rhythm. No sign of left atrial enlargement or right atrial enlargement. No ST elevation or ST depression. No sign of hypertrophy. Normal EKG. us Gerson Bangura MD ECG ORDERABLES Final Resul t * XR Chest 1 View (01/01/2025 4:42 AM EDT) Anatomical Region Laterality Modality Chest Radiographic Luisa ging 01/01/2025 4:42 AM EDT Narrative 01/01/2025 4:43 AM EDT [address] [address] XRay Report Signed Patient: Johnathon John MR#: [id number] 532 : 1990 Acct:[id number] Age/Sex: 34 / M ADM Date: 01/01/25 Loc: .ED Attending Dr: Ordering Physician: Kvng Daniels PA-C Date of Service: 01/01/25 Procedure(s): XR chest 1V Accession Number(s): [id number] cc: [facility]; Kvng Daniels PA-C Reason for Exam: Shortness of Breath CLINICAL HISTORY: Shortness of Breath - patient uncooperative and not following instructions. jat 1 view chest x-ray Comparison: None provided Findings: Portions of the exam are obscured by overlying material. The lungs are clear. Normal size heart. No acute fracture. IMPRESSION: 1. No acute findings. This document has been electronically signed by: Kenneth Gallagher MD on 01/01/2025 04:42:23 Dictated By: Kenneth Gallagher MD Signed By: <Electronically signed by Kenneth Gallagher MD in OV> 01/01/25441 DD/ 1 TD/TT: 01/01/25441 Hedge Fund Manager: Procedure Note Donotuseinterpreter, Image - 01/01/2025 [place] [address] XRay Report Signed Patient: Johnathon JohnMR#: [id number] 532 : 1990Acct:[id number] Age/Sex: 34 / MADM Date: 01/01/25 Loc: .ED Attending Dr: Ordering Physician: Kvng Daniels PA-C Date of Service: 01/01/25 Procedure(s): XR chest 1V Accession Number(s): [id number] cc: [facility]; Kvng Daniels PA-C Reason for Exam: Shortness of Breath CLINICAL HISTORY: Shortness of Breath - patient uncooperative and notfollowing instructions. jat 1 view chest x-ray Comparison: None provided Findings: Portions of the exam are obscured by overlying material. The lungs are clear. Normal size heart. No acute fracture. IMPRESSION: 1. No acute findings. This document has been electronically signed by: Kenneth Gallagher MD on 01/01/2025 04:42:23 Dictated By: Kenneth Gallagher MD Signed By: <Electronically signed by Kenneth Gallagher MD in OV> 01/01/25441 DD/ 1 TD/TT: 01/01/25441 Hedge Fund Manager: [facility] External Provider IMG XR PROCEDURES Final Result * (ABNORMAL) Drug Monitoring, Panel 1, Screen, Urine (01/01/2025 3:49 AM EDT) Opiate Screen Urine Not Detected Not Detect [facility] Comment:Opiate cut-off is 30 0 ng/mL.Positive results are unconfirmed and should not be used fornon-medical purposes. Barbiturates, Urine Not Detected Not Detect [facility] Comment:Barbiturate cut-off is 200 ng/mL.Positive results are unconfirmed and should not be used fornon-medical purposes. Phencyclidine Screen Urine Not Detected Not Detect [facility] Comment:Phencyclidine cut-of f is 25 ng/mL.Positive results are unconfirmed and should not be used fornon-medical purposes. Amphetamine Screen Urine Not Detected Not Detect [facility] Comment:Amphetamine cut-off is 1000 ng/mL.Positive results are unconfirmed and should not be used fornon-medical purposes. Benzodiazepines Screen Urine Not Detected Not Detect [facility] Comment:Benzodiazepine cut-o ff is 200 ng/mL.Positive results are unconfirmed and should not be used fornon-medical purposes. Cocaine Screen Urine Not Detected Not Detect [facility] Comment:Cocaine cut-off is 3 00 ng/mL.Positive results are unconfirmed and should not be used fornon-medical purposes. Cannabinoid Screen Urine Not Detected Not Detect [facility] Comment:Cannabinoid cut-off is 50 ng/mL.Positive results are unconfirmed and should not be used fornon-medical purposes. Methadone Screen, Urine Not Detected Not Detect ng/mL [facility] Comment:Methadone cut-off is 300 ng/mL.Positive results are unconfirmed and should not be used fornon-medical purposes. FENTANYL URINE Not Detected Not Detect [facility] Comment:Fentanyl cut-off is 1 ng/mL.Positive results are unconfirmed and should not be used fornon-medical purposes. Oxycodone Urine Screen Not Detected Not Detect ng/mL [facility] Comment:Oxycodone cut-off is 100 ng/mL.Positive results are unconfirmed and should not be used fornon-medical purposes. Buprenorphine Screen Positive(A) Not Detect ng/mL [facility] Comment:Buprenorphine cut-of f is 5 ng/mL.Positive results are unconfirmed and should not be used fornon-medical purposes. 01/01/2025 3:4 9 AM EDT 01/01/2025 3:53 AM EDT Generic External Data Provider LAB URINE ORDERAB LES Final Result Performing Organization Address [facility] Co de Phone Number [facility] [address] [place] [phone] * Urinalysis w/reflex microscopic (01/01/2025 3:49 AM EDT) Color Urine Yellow [facility] Appearance Urine Clear [facility] PH 7.5 5.0 - 9.0 [facility] Glucose Urine UA Negative Negative mg/dL [facility] Urine Blood Negative Negative [facility] Specific [place] - Urine 1.015 1.005 - 1.025 [facility] Urine Protein Negative Neg-Trace mg/dL [facility] Urine Ketones Negative Negative mg/dL [facility] Nitrite Urine Negative Negative [facility] Leukocyte Esterase Urine Negative Negative [facility] 01/01/2025 3:49 AM EDT 01/01/2025 3:53 AM EDT Narrative [facility] - 01/01/2025 3:56 AM EDT [id number], Clean Catch Generic External Data Provider LAB URINE ORDERAB LES Final Result Performing Organization Address [facility] Co de Phone Number [facility] [address] [place] [phone] * High Sensitivity Troponin I (01/01/2025 2:33 AM EDT) TROPONIN I HIGH SENSITIVITY <2.7 <3.5 - 35.0 ng/L [facility] Comment:The St high sens itivity Troponin-I results should beused in conjunction with other diagnostic information suchas ECG, clinical observations and information, and patientsymptoms to aid in the diagnosis of DE. 01/01/2025 2:33 AM EDT 01/01/2025 2:39 AM EDT Generic External Data Provider LAB BLOOD ORDERAB LES Final Result Performing Organization Address [facility] de Phone Number [facility] [address] [place] [phone] * Ethanol (01/01/2025 2:33 AM EDT) Pathologist [facility] ETHANOL (MG/DL) IN SER/PLAS <10 mg/dL [facility] Comment:Serum/plasma ethanol results are to be used formedical/treatment purposes only. 01/01/2025 2:33 AM EDT 01/01/2025 2:39 AM EDT Generic External Data Provider LAB BLOOD ORDERAB LES Final Result Performing Organization Address [facility] de Phone Number [facility] [address] [place] [phone] * (ABNORMAL) CBC auto differential (01/01/2025 2:33 AM EDT) [facility] White Blood Count 11.3(H) 4.8 - 10.8 X10*3/uL [facility] Red Blood Count 5.12 4.60 - 5.80 X10*6/uL [facility] Hemoglobin 15.0 14.0 - 18.0 g/dl [facility] Hematocrit 43.6 42.0 - 52.0 % [facility] Mean Corpuscular Volume 85.2 80.0 - 98.0 fL [facility] Mean Corpuscular Hemoglobin 29.3 27.0 - 33.0 pg [facility] Mean Corpuscular HGB Conc 34.4 31.0 - 36.0 g/dl [facility] Red Cell Distribution Width 12.7 11.0 - 16.0 % [facility] Platelet Count 270 160 - 400 X10*3/uL [facility] Mean Platelet Volume 10.1 9.4 - 12.4 fL [facility] Neutrophils Percent Auto 77.8(H) 45 - 73 % [facility] Imm Gran Pct Auto 0.4 0.0 - 0.4 % [facility] Lymphocytes Percent Auto 14.6(L) 20 - 40 % [facility] Monocytes Percent Auto 6.4 2 - 11 % [facility] Eosinophils Percent Auto 0.4 0 - 4 % [facility] Basophils Percent Auto 0.4 0 - 2 % [facility] NRBC Pct Auto 0.0 0.0 - 0.2 /100WBC [facility] Neutrophils Absolute Auto 8.8(H) 2.0 - 8.3 x10*3/uL [facility] Imm Gran Abs Auto 0.04(H) 0.00 - 0.03 X10*3/uL [facility] Lymphocytes Absolute Auto 1.7 1.2 - 4.9 X10*3/uL [facility] Monocytes Absolute Auto 0.7 0.1 - 1.2 X10*3/uL [facility] Eosinophils Absolute Auto 0.0 0.0 - 0.4 X10*3/uL [facility] Basophils Absolute Auto 0.0 0.0 - 0.2 X10*3/uL [facility] NRBC Abs Auto 0.000 0.0 - 0.012 X10*3/uL [facility] 01/01/2025 2:33 AM EDT 01/01/2025 2:39 AM EDT us Generic External Data Provider LAB BLOOD ORDERAB LES Final Result [facility] [address] [place] [phone] * Lipase (01/01/2025 2:33 AM EDT) Lipase 69 8 - 78 U/L [facility] 01/01/2025 2:33 AM EDT 01/01/2025 2:39 AM EDT us Generic External Data Provider LAB BLOOD ORDERAB LES Final Result [facility] [address] [place] [phone] * (ABNORMAL) Comprehensive Metabolic Panel (01/01/2025 2:33 AM EDT) Sodium 141 135 - 145 mmol/L [facility] Potassium 3.6 3.3 - 5.1 mmol/L [facility] Comment:Slight Hemolysis.Int erpret result with caution. Chloride 106 96 - 108 mmol/L [facility] Carbon Dioxide 21(L) 22 - 29 mmol/L [facility] Anion Gap 18 12 - 20 [facility] Urea Nitrogen (BUN) 12 9 - 16 mg/dL [facility] Creatinine, Serum 1.05 0.5 - 1.4 mg/dL [facility] Creatinine Clr Calc Pharmacy 112.0 [facility] Comment:eGFR (calculated fro m the MDRD study equation) and eCrCl(calculated from the Cockcroft-Gault equation) are based ondifferent parameters and may not yield comparable results.If eCrCl result is absurd, please check patient'sheight/weight. Estimated Glomerular Filt Rate >60 [facility] Comment:Chronic Kidney Disea se: Estimated GFR < 60 mL/min/1.47y4Ioivdh Kidney Disease: Estimated GFR < 15 mL/min/1.73m2 Glucose 113 60 - 115 mg/dL [facility] Calcium 9.6 8.4 - 10.2 mg/dL [facility] Bilirubin, Total 0.5 0.0 - 1.0 mg/dL [facility] Aspartate Amino Transferase 25 5 - 37 U/L [facility] Comment:Slight Hemolysis.Int erpret result with caution. Alanine Aminotransferase 15 0 - 40 U/L [facility] Total Protein 8.2(H) 6.5 - 8.0 g/dL [facility] Albumin Level 5.0 3.5 - 5.0 g/dL [facility] Alkaline Phosphatase 84 39 - 117 U/L [facility] 01/01/2025 2:33 AM EDT 01/01/2025 2:39 AM EDT Generic External Data Provider LAB BLOOD ORDERAB LES Final Result Performing Organization Address [facility] de Phone Number [facility] [address] [place] [phone] * Influenza A B2 ID NOW (St) (01/01/2025 2:08 AM EDT) IDNOW SERIAL# [id number] [facility] Influenza A Negative Negative [facility] Influenza B2 Negative Negative [facility] Influenza A B2 Note See Note [facility] Comment:The St ID NOW In fluenza A B2 test is used for thequalitative detection of influenza A and B from patientswith signs and symptoms of respiratory infection.Negative results do not preclude influenza virus infectionand should not be used as the sole basis for diagnosis,treatment or other patient management decisions.There is a risk of false negative results due to thepresence of variants in the viral targets of the assay, lowlevels of virus in the specimen and co- infection withRespiratory Syncytial Virus. 01/01/2025 2:08 AM EDT 01/01/2025 2:14 AM EDT us Generic External Data Provider LAB MICROBIOLOGY - GENERAL ORDERABLES Final Result Performing Organization Address [facility] Co de Phone Number [facility] [address] [place] [address] [phone] * COVID-19 ID NOW (ST) (01/01/2025 2:08 AM EDT) IDNOW SERIAL# [id number] [facility] COVID-19 TEST Negative Negative [facility] COVID-19 NOTE See Note [facility] Comment: Results are for the identification of SARS-CoV2 RNA. TheSARS-CoV2 RNA is generally detectable in respiratory samplesduring the acute phase of infection. Positive results areindicative of the presence of SARS-CoV-2 RNA; clinicalcorrelation with patient history and other diagnosticinformation is necessary to determine patient infectionstatus. Positive results do not rule out bacterial infectionor co- infection with other viruses.Testing facilities within the [place] and [facility] are required to report all positive results tothe appropriate public health authorities.Negative results should be treated as presumptive and, ifinconsistent with clinical signs and symptoms or necessaryfor patient management, should be tested with differentauthorized or cleared molecular tests. Negative results donot preclude SARS-CoV2 RNA infection and should not be usedas the sole basis for patient management decisions. Negativeresults should be considered in the context of a patient'srecent exposures, history and the presence of clinical signsand symptoms consistent with COVID-19.This test has been authorized by the FDA under an EmergencyUse Authorization (EUA) for use by authorized laboratories.Testing performed on the Afraxis NOW utilizing NAAT. 01/01/2025 2:08 AM EDT 01/01/2025 2:14 AM EDT us Generic External Data Provider LAB MOLECULAR NILDA GNOSTICS ORDERABLES Final Result [facility] [address] [place] [phone] from Last 3 Months Insurance [facility] C3 Care Teams Adult Day Care Worker Relationship Specialty Start Date End Date Rustam Mackenzie MD [address] [place] [phone] PCP - General Internal Medicine 09/11/24
--- OUTSIDE RECORDS SUMMARY | 2025-02-09 10:25 | XMS_ITS | Encounter Summary ---
Author Organization [employer] Address [address] [place] [address] Care Team Providers Care Veterinary Epidemiologist Name Role Phone Rustam Mackenzie MD Primary Care Prov ider Encounter Details Date Type Department Care Team (Latest Contact Info) Description 02/05/2025 Travel Social History Tobacco Use Types Packs/Day Years [...] AM EDT documented as of this encounter Plan of Treatment Not on file documented as of this encounter Visit Diagnoses Not on filedocumented in this encounter Additional Health Concerns Assessment Noted Time PHQ-9 Depression Total Score: 6 09/12/19 10:28 AM EDT documented as of this encounter Care Teams Veterinary Epidemiologist Relationship Specialty Start Date End Date Rustam Mackenzie MD [address] [place] [phone] PCP - General Internal Medicine 09/11/24 documented as of this encounter
--- OUTSIDE RECORDS SUMMARY | 2025-02-09 10:25 | XMS_ITS | Encounter Summary ---
Author Organization [employer] Address [address] [facility] [place] [address] Care Team Providers Care Technical Sales Manager Name Role Phone Rustam Mackenzie MD Primary Care Prov ider Reason for Visit * Reason Onset Date Comments chart prep 02/04/2025 Encounter Details Date Type Department Care Team ([facility] st Contact Info) Description 02/04/2025 Telephone [facility] P[facility] [address] [place] [address] Rustam Mackenzie MD [address] [place] [address] chart prep Social History Tobacco Use Types Packs/Day Years [...] AM EDT documented as of this encounter Miscellaneous Notes * Telephone Encounter - Juany Del Rio [place] - 02/04/2025 2:11 PM EST Chart Prep Labs: done Images: done Referrals: complete Vaccines due: Covid, Flu, PCV20, Tdap, Hep B, and HPV Screenings: not applicable Overdue care gaps: SBIRT, SDOH, and Disability screen documented in this encounter Plan of Treatment Not on file documented as of this encounter Visit Diagnoses Not on filedocumented in this encounter Additional Health Concerns Assessment Noted Time PHQ-9 Depression Total Score: 6 09/12/19 10:28 AM EDT documented as of this encounter Care Teams Technical Sales Manager Relationship Specialty Start Date End Date Rustam Mackenzie MD [address] [place] [address] [place] [phone] PCP - General Internal Medicine 09/11/24 documented as of this encounter
[2025-02-09 15:48] LABS: E. coli EAEC Not Detected (Not Detect.); E. coli EPEC Not Detected (Not Detect.); E. coli ETEC Not Detected (Not Detect.); E. coli STEC Not Detected (Not Detect.); Shigella sp./EIEC Not Detected (Not Detect.)
== END 2025-02-09 09:18 | disposition home or self-care (01) ==
LOC: HO.CHCLNP 09:17
PROVIDERS: PCP Internal Medicine; Visit Provider Internal Medicine
DX: K59.1 Functional diarrhea (principal); R14.0 Abdominal distension (gaseous)
CPT/HCPCS: 87338; 87507

== ENCOUNTER → 2025-03-12 13:46 | Outpatient (REF) | payer MEDICAID, SELFPAY ==
--- NOTE | 2025-03-12 13:49 | CA_ITS ---
Transthoracic Echocardiogram Patient (Last, First, Middle): Johnathon John, Gender: M Date of : 1990 Age: 34 Procedure Date: 03/12/2025 Procedure Type: Transthoracic Echocardiogram Location: OP Height: 172.72 cm Weight: 77.11 kg BSA: 1.91 m2 Heart Rate: 62 bpm BP: 116 / 66 mmHg Floorperson: SB Referring MD: Gerson Bangura MD Job Spotter: Neno Elizondo MD Symptoms: DYSPNEA ON EXERTION. R06.09/Bilaterl leg edema Study Quality: Adequate ECG Rhythm: Sinus Conclusions: - Normal study Findings Left Ventricle Normal left ventricular size, thickness, and systolic function. The visually estimated ejection fraction is between 55-60%. Spectral Doppler is indicative of a normal filling pattern. Right Ventricle Normal right ventricular cavity size and systolic function. Atria Both atria are normal in size. There is no evidence of interatrial shunt. Aortic Valve Normal aortic valve structure and function. There is no aortic valve stenosis. There is no aortic valve regurgitation. Mitral Valve Normal mitral valve structure and function. There is trace mitral valve regurgitation. There is no mitral valve stenosis. Pulmonic Valve The pulmonic valve is likely normal. There is trace pulmonic valve regurgitation. Tricuspid Valve Normal tricuspid valve structure. Tricuspid regurgitation envelope is inadequate for calculation of right ventricular systolic pressure. Normal right atrial pressure. Great Vessels All visible segments of the aorta are normal in size. The pulmonary artery was not well visualized. Venous The inferior vena cava is normal in size and collapses greater than 50% with inspiration. Pericardium/Pleural There is no evidence of pericardial effusion. Prior Study Comparison No prior study available for comparison. Measurements 2D Linear Measurements IVSd: 0.76 0.6-0.9/0.6-1.0 cm LVIDd: 5.26 3.9-5.3/4.2-5.9 cm LVIDd Index: 2.75 2.4-3.2/2.2-3.1 cm/m2 LVIDs: 3.33 2.0-3.6 cm LVPWd: 0.79 0.7-1.1 cm LA Diam: 3.60 2.7-3.8/3.0-4.0 cm LAIDs Index: 1.88 1.5-2.3 cm/m2 LV Mass: 177.39 67-162/88-224 g LV Mass Index: 92.87 43-95/49-115 g/m2 LVOT Diam: 2.10 3.0+(-)1.3 cm 2D Systolic Function EF 4C: 51.30 >55% EF 2C: 59.90 >55% EF BiP: 55.30 >55% Mitral Valve MV Pk E: 0.66 MV PK A: 0.39 MV Decel Time: 210.00 E/A: 1.70 E'Lateral: 14.70 E'Medial: 9.79 E/E' Med: 6.70 E/E' Lat: 4.50 PHT: 61.00 MVA PHT: 3.61 Decel [place]: 3.15 Aortic Valve AoV Pk Andrew: 1.31 AoV Pk Grad: 7.00 KATHLEEN: 3.04 LVOT LVOT Pk Andrew: 1.11 LVOT Mn Andrew: 0.78 LVOT VTI: 0.24 LVOT Pk Grad: 5.00 LVOT Mn Grad: 3.00 LVOT Diam: 2.10 LVOT Area: 3.46 Diastolic Function MV Pk E: 0.66 MV Pk A: 0.39 E/A: 1.70 E'Medial: 9.79 E/E' Med: 6.70 E' Laterial: 14.70 E/E' Lat: 4.50 Right Ventricle TAPSE (mm): 19.50 TVS' Andrew: 12.70 Tricuspid Valve RA Press: 3.00 Great Vessels Aorta Sinus of Valsalva: 2.90 2.0-3.5 cm Ao Asc: 2.70 2.1-3.4 cm Ao Arch: 2.30 Pulmonary Veins Pulm Vein S/D 1.40 Pulmonary Valve PV Pk Andrew: 0.85 Peak PV Grad: 3.00 Updated in Other Vendor System with Status of Final Neno Elizondo MD electronically signed on 03/13/2025 1:33:05 PM with status of Final
--- OUTSIDE RECORDS SUMMARY | 2025-03-12 13:50 | XMS_ITS | Encounter Summary ---
Author Organization [employer] Address [address] [place] [address] Care Team Providers Care Edi Consultant Name Role Phone Rustam Mackenzie MD Primary Care Prov ider Encounter Details Date Type Department Care Team (Latest Contact Info) Description 02/10/2025 Results Follow-Up [facility] [address] [place] [address] Gerson Bangura MD [address] [place] [address] Helicobacter pylori Antigen, EIA, Stool Social History Tobacco Use Types Packs/Day Years Used Date Smoking Tobacco: Every Day Cigarettes 0.5 18 Started: 2007 Smokeless Tobacco: Never Alcohol Use [...] documented as of this encounter Care Teams Edi Consultant Relationship Specialty Start Date End Date Rustam Mackenzie MD [address] [place] [address] PCP - General Internal Medicine 09/11/24 documented as of this encounter
--- OUTSIDE RECORDS SUMMARY | 2025-03-12 13:50 | XMS_ITS | Clinical Summary ---
Author Organization [employer] Address [address] [facility] [address] [place] [address] Care Team Providers Care Roller Mill Tender Name Role Phone Rustam Mackenzie MD Primary [...] breakfast. Do not crush or chew. Active Active Problems Problem Noted Date Diagnosed [...] Encounters Date Type Department Care Team Description 02/10/2025 Results Follow-Up [facility] [address] [place] [address] Gerson Bangura MD Helicobacter pylori Antigen, EIA, Stool 02/09/2025 Results Follow-Up [facility] [address] [place] [address] Gerson Bangura MD Stool - Gastrointestinal panel 02/05/2025 10:15 AM EST Office Visit [facility] [address] [place] [address] Rustam Mackenzie MD Bloating (Primary Dx); Epigastric abdominal pain 02/05/2025 Travel 02/04/2025 Telephone [facility] [address] [place] [address] Rustam Mackenzie MD chart prep 01/07/2025 Telephone [facility] [address] [place] [phone] Gerson Bangura MD 01/05/2025 3:00 PM EDT Office Visit [facility] [address] [place] [address] Gerson Bangura MD Other chest pain (Primary Dx); Bilateral leg edema; Functional diarrhea; Rectal bleed 01/05/2025 Travel 01/05/2025 Telephone [facility] [address] [place] [phone] Rustam Mackenzie MD ER Follow-up 01/01/2025 Orders Only [facility] External Provider, [facility] 12/23/2024 2:00 PM EDT Office Visit [facility] [address] [place] [address] Sheri Gardiner MD Localized swelling of both lower legs (Primary Dx) 12/23/2024 Travel 12/22/2024 Telephone [facility] [address] [place] [address] Rustam Mackenzie MD Nurse Triage from Last 3 Months Family History Medical History Relation Name Comments No Known Problems Father Diabetes Mother Lung cancer Mother Relation Name Status Comments Father Mother Social History Tobacco Use Types Packs/Day Years Used Date Smoking Tobacco: Every Day Cigarettes 0.5 18 Started: 2007 Smokeless Tobacco: Never Tobacco Cessation:Ready [...] Procedure Name Priority Date/Time Associated Diagnosis Comments HELICOBACTER PYLORI AG, EIA, STOOL Routine 02/07/2025 7:55 AM EST Bloating GASTROINTESTINAL PANEL Routine 7:55 AM EST Functional diarrhea AMB REFERRAL TO GASTROENTEROLOGY Routine 02/01/2025 Functional [...] 01/01/2025 2:33 AM EDT COVID-19 ID NOW (ST) Routine 025 2:08 AM EDT INFLUENZA A B2 ID NOW (ST) Routine 01/01/2025 2:08 AM EDT from Last 3 Months Results * Stool - Gastrointestinal panel (02/07/2025 7:55 AM EST) Campylobacter Not Detected Not Detect. [facility] Plesiomonas shigelloides Not Detected Not Detect. [facility] Salmonella Not Detected Not Detect. [facility] Vibrio Not Detected Not Detect. [facility] Vibrio cholerae Not Detected Not Detect. [facility] YERSINIA ENTEROCOLITICA Not Detected Not Detect. [facility] Enteroaggregative E. coli (EAEC) Not Detected Not Detect. [facility] Enteropathogenic E. coli (EPEC) Not Detected Not Detect. [facility] Enterotoxigenic E. coli (ETEC) lt/st Not Detected Not Detect. [facility] Shiga-like toxin-producing E. coli (STEC) stx1/stx2 Not Detected Not Detect. [facility] E coli O157 Not applicable Not Detect. [facility] Comment:E. coli containing t he O157 antigen are a subset ofShiga-like toxin- producing E. coli (STEC). Shigella/Enteroinvasive E. coli (EIEC) Not Detected Not Detect. [facility] Cryptosporidium Not Detected Not Detect. [facility] Cyclospora cayetanensis Not Detected Not Detect. [facility] Entamoeba histolytica Not Detected Not Detect. [facility] Giardia lamblia Not Detected Not Detect. [facility] Adenovirus F 40/41 Not Detected Not Detect. [facility] Astrovirus Not Detected Not Detect. [facility] Norovirus GI/GII Not Detected Not Detect. [facility] Rotavirus A Not Detected Not Detect. [facility] Sapovirus Not Detected Not Detect. [facility] Comment: All results must be correlated with clinical findings.Negative results do not exclude the possibility ofgastrointestinal infection and should not be used as thesole basis for diagnosis, treatment, or other managementdecisions. Virus, bacteria, and parasite nucleic acid maypersist in vivo independently of organism viability.Additionally, some organisms may be carriedasymptomatically.Detection of organism targets does not imply that thecorresponding organisms are infectious or are the causativeagents for clinical symptoms. There is a risk of falsenegative values due to the presence of sequence variants inthe gene targets of the assay, amplification inhibitors inspecimens, or inadequate numbers of organisms foramplification.The identification of several diarrheagenic E. colipathotypes has historically relied upon phenotypiccharacteristics. This panel targets genetic determinantscharacteristic of most pathogenic strains, but may notdetect all strains having phenotypic characteristics of apathotype.The performance of this test has not been established formonitoring treatment of infection with any of the panelorganisms.This assay is performed by Multiplexed PCR, utilizing [employer] Array. Stool Rectal contents / Unknown 02/07/2025 7:55 AM EST 02/09/2025 2:17 PM EST us Gerson Bangura MD LAB MICROBIOLOGY - GENERAL ORDERABLES Final Result [facility] [address] [place] [phone] * Helicobacter pylori??Antigen, EIA, Stool (02/07/2025 7:55 AM EST) H pylori Ag Stool SEE NOTE [facility] Comment:HELICOBACTER PYLORI AG, EIA, STOOL Micro Number: [id number] Test Status: Final Specimen Source: Stool Specimen Quality: Adequate H.pylori Ag: Not Detected Antimicrobials, proton pump inhibitors, and bismuth preparations inhibit H. pylori and ingestion up to two weeks prior to testing may cause false negative results. If clinically indicated the test should be repeated on a new specimen obtained two weeks after discontinuing treatment. Reference Range: Not DetectedTHIS TEST WAS PERFORMED AT:[facility] [place] [phone] IZQUIERDO MD Stool Rectal contents / Unknown 02/07/2025 7:55 AM EST 02/09/2025 2:17 PM EST us Rustam Paredes MD LAB BODY FLUIDS AN D STOOLS ORDERABLES Final Result [facility] [address] [place] [phone] * Referral to Gastroenterology (02/01/2025) us Gerson Bangura MD OUTPATIENT REFERRAL ORDERAB LES Final Result * ECG 12 lead (01/05/2025 3:55 PM EDT) Narrative Gerson Bangura MD - 01/05/2025 3:55 PM EDT Heart rate 63 beats per minute. Henderson 69 degrees. Normal sinus rhythm. No sign of left atrial enlargement or right atrial enlargement. No ST elevation or ST depression. No sign of hypertrophy. Normal EKG. us Gerson Bangura MD ECG ORDERABLES Final Resul t * XR Chest 1 View (01/01/2025 4:42 AM EDT) Anatomical Region Laterality Modality Chest Radiographic Luisa ging 01/01/2025 4:42 AM EDT Narrative 01/01/2025 4:43 AM EDT [address] [address] XRay Report Signed Patient: Johnathon John MR#: [id number] 532 : 1990 Acct:[id number] Age/Sex: 34 / M ADM Date: 01/01/25 Loc: HO.ED Attending Dr: Ordering Physician: Kvng Daniels PA-C Date of Service: 01/01/25 Procedure(s): XR chest 1V Accession Number(s): [id number] cc: [facility]; Kvng Daniels PA-C Reason for Exam: Shortness [...] in OV> 01/01/25441 DD/ 1 TD/TT: 01/01/25441 Loading Machine Operator: Procedure Note Donotuseinterpreter, Image - 01/01/[address] [address] XRay Report Signed Patient: Johnathon JohnMR#: [id number] : 1990Acct:[id number] Age/Sex: 34 / MADM Date: 01/01/25 Loc: HO.ED Attending Dr: Ordering Physician: Kvng Daniels PA-C Date of Service: 01/01/25 Procedure(s): XR chest 1V Accession Number(s): [id number] cc: [facility]; Kvng Daniels PA-C Reason for Exam: Shortness [...] in OV> 01/01/25441 DD/ 1 TD/TT: 01/01/25441 Loading Machine Operator: [facility] External Provider IMG XR PROCEDURES Final Result * (ABNORMAL) Drug Monitoring, Panel 1, Screen, Urine (01/01/2025 3:49 AM EDT) Opiate Screen Urine Not Detected Not Detect [facility] Comment:Opiate cut-off is 30 0 ng/mL.Positive results are unconfirmed and should not be used fornon-medical purposes. Barbiturates, Urine Not Detected Not Detect [facility] Comment:Barbiturate cut-off is 200 ng/mL.Positive results are unconfirmed and should not be used fornon-medical purposes. Phencyclidine Screen Urine Not Detected Not Detect [facility] Comment:Phencyclidine cut-of f is 25 ng/mL.Positive results are unconfirmed and should not be used fornon-medical purposes. Amphetamine Screen Urine Not Detected Not Detect [facility] Comment:Amphetamine cut-off is 1000 ng/mL.Positive results are unconfirmed and should not be used fornon-medical purposes. Benzodiazepines Screen Urine Not Detected Not Detect [facility] Comment:Benzodiazepine cut-o ff is 200 ng/mL.Positive results are unconfirmed and should not be used fornon-medical purposes. Cocaine Screen Urine Not Detected Not Detect [facility] Comment:Cocaine cut-off is 3 00 ng/mL.Positive results are unconfirmed and should not be used fornon-medical purposes. Cannabinoid Screen Urine Not Detected Not Detect [facility] Comment:Cannabinoid cut-off is 50 ng/mL.Positive results are unconfirmed and should not be used fornon-medical purposes. Methadone Screen, Urine Not Detected Not Detect ng/mL [facility] Comment:Methadone cut-off is 300 ng/mL.Positive results are unconfirmed and should not be used fornon-medical purposes. FENTANYL URINE Not Detected Not Detect [facility] Comment:Fentanyl cut-off is 1 ng/mL.Positive results are unconfirmed and should not be used fornon-medical purposes. Oxycodone Urine Screen Not Detected Not Detect ng/mL [facility] Comment:Oxycodone cut-off is 100 ng/mL.Positive results are unconfirmed and should not be used fornon-medical purposes. Buprenorphine Screen Positive(A) Not Detect ng/mL [facility] Comment:Buprenorphine cut-of f is 5 ng/mL.Positive results are unconfirmed and should not be used fornon-medical purposes. 01/01/2025 3:49 AM EDT 01/01/2025 3:53 AM EDT us Generic External Data Provider LAB URINE ORDERAB LES Final Result Performing Organization Address [facility] Co de Phone Number [facility] [address] [place] [phone] * Urinalysis w/reflex microscopic (01/01/2025 3:49 AM EDT) Color Urine Yellow [facility] Appearance Urine Clear [facility] PH 7.5 5.0 - 9.0 [facility] Glucose Urine UA Negative Negative mg/dL [facility] Urine Blood Negative Negative [facility] Specific Todd - Urine 1.015 1.005 - 1.025 [facility] Urine Protein Negative Neg-Trace mg/dL [facility] Urine Ketones Negative Negative mg/dL [facility] Nitrite Urine Negative Negative [facility] Leukocyte Esterase Urine Negative Negative [facility] 01/01/2025 3:49 AM EDT 01/01/2025 3:53 AM EDT Narrative [facility] - 01/01/2025 3:56 AM EDT [id number], Clean Catch us Generic External Data Provider LAB URINE ORDERAB LES Final Result Performing Organization Address [facility] Co de Phone Number [facility] [address] [place] [phone] * High Sensitivity Troponin I (01/01/2025 2:33 AM EDT) TROPONIN I HIGH SENSITIVITY <2.7 <3.5 - 35.0 ng/L [facility] Comment:The St high sens itivity Troponin-I results should beused in conjunction with other diagnostic information suchas ECG, clinical observations and information, and patientsymptoms to aid in the diagnosis of [place]. 01/01/2025 2:33 AM EDT 01/01/2025 2:39 AM EDT us Generic External Data Provider LAB BLOOD ORDERAB LES Final Result Performing Organization Address [facility]/ZIP Co de Phone Number [facility] [address] [place] [address] [phone] * Ethanol (01/01/2025 2:33 AM EDT) ETHANOL (MG/DL) IN SER/PLAS <10 mg/dL [facility] Comment:Serum/plasma ethanol results are to be used formedical/treatment purposes only. 01/01/2025 2:33 AM EDT 01/01/2025 2:39 AM EDT Generic External Data Provider LAB BLOOD ORDERAB LES Final Result Performing Organization Address [facility] de Phone Number [facility] [address] [place] [phone] * (ABNORMAL) CBC auto differential (01/01/2025 2:33 AM EDT) White Blood Count 11.3(H) 4.8 - 10.8 X10*3/uL [facility] Red Blood Count 5.12 4.60 - 5.80 X10*6/uL [facility] Hemoglobin 15.0 14.0 - 18.0 g/dl [facility] Hematocrit 43.6 42.0 - 52.0 % [facility] Mean Corpuscular Volume 85.2 80.0 - 98.0 fL [facility] Mean Corpuscular Hemoglobin 29.3 27.0 - 33.0 pg [facility] Mean Corpuscular HGB Conc 34.4 31.0 - 36.0 g/dl [facility] Red Cell Distribution Width 12.7 11.0 - 16.0 % [facility] Platelet Count 270 160 - 400 X10*3/uL [facility] Mean Platelet Volume 10.1 9.4 - 12.4 fL [facility] Neutrophils Percent Auto 77.8(H) 45 - 73 % [facility] Imm Gran Pct Auto 0.4 0.0 - 0.4 % [facility] Lymphocytes Percent Auto 14.6(L) 20 - 40 % [facility] Monocytes Percent Auto 6.4 2 - 11 % [facility] Eosinophils Percent Auto 0.4 0 - 4 % [facility] Basophils Percent Auto 0.4 0 - 2 % [facility] NRBC Pct Auto 0.0 0.0 - 0.2 /100WBC [facility] Neutrophils Absolute Auto 8.8(H) 2.0 - 8.3 x10*3/uL [facility] Imm Gran Abs Auto 0.04(H) 0.00 - 0.03 X10*3/uL [facility] Lymphocytes Absolute Auto 1.7 1.2 - 4.9 X10*3/uL [facility] Monocytes Absolute Auto 0.7 0.1 - 1.2 X10*3/uL [facility] Eosinophils Absolute Auto 0.0 0.0 - 0.4 X10*3/uL [facility] Basophils Absolute Auto 0.0 0.0 - 0.2 X10*3/uL [facility] NRBC Abs Auto 0.000 0.0 - 0.012 X10*3/uL [facility] 01/01/2025 2:33 AM EDT 01/01/2025 2:39 AM EDT us Generic External Data Provider LAB BLOOD ORDERAB LES Final Result Performing Organization Address City/State/[facility] Co de Phone Number [facility] [address] [place] [phone] * Lipase (01/01/2025 2:33 AM EDT) Lipase 69 8 - 78 U/L [facility] 01/01/2025 2:33 AM EDT 01/01/2025 2:39 AM EDT us Generic External Data Provider LAB BLOOD ORDERAB LES Final Result [facility] [address] [place], [place] [phone] * (ABNORMAL) Comprehensive Metabolic Panel (01/01/2025 2:33 AM EDT) Sodium 141 135 - 145 mmol/L [facility] Potassium 3.6 3.3 - 5.1 mmol/L [facility] Comment:Slight Hemolysis.Int erpret result with caution. Chloride 106 96 - 108 mmol/L [facility] Carbon Dioxide 21(L) 22 - 29 mmol/L [facility] Anion Gap 18 12 - 20 [facility] Urea Nitrogen (BUN) 12 9 - 16 mg/dL [facility] Creatinine, Serum 1.05 0.5 - 1.4 mg/dL [facility] Creatinine Clr Calc Pharmacy 112.0 [facility] Comment:eGFR (calculated fro m the MDRD study equation) and eCrCl(calculated from the Cockcroft-Gault equation) are based ondifferent parameters and may not yield comparable results.If eCrCl result is absurd, please check patient'sheight/weight. Estimated Glomerular Filt Rate >60 [facility] Comment:Chronic Kidney Disea se: Estimated GFR < 60 mL/min/1.00w3Oqweay Kidney Disease: Estimated GFR < 15 mL/min/1.73m2 Glucose 113 60 - 115 mg/dL [facility] Calcium 9.6 8.4 - 10.2 mg/dL [facility] Bilirubin, Total 0.5 0.0 - 1.0 mg/dL [facility] Aspartate Amino Transferase 25 5 - 37 U/L [facility] Comment:Slight Hemolysis.Int erpret result with caution. Alanine Aminotransferase 15 0 - 40 U/L [facility] Total Protein 8.2(H) 6.5 - 8.0 g/dL [facility] Albumin Level 5.0 3.5 - 5.0 g/dL [facility] Alkaline Phosphatase 84 39 - 117 U/L [facility] 01/01/2025 2:33 AM EDT 01/01/2025 2:39 AM EDT Generic External Data Provider LAB BLOOD ORDERAB LES Final Result Performing Organization Address [facility] Co de Phone Number [facility] [address] [place] [phone] * Influenza A B2 ID NOW (St) (01/01/2025 2:08 AM EDT) IDNOW SERIAL# [id number] [facility] Influenza A Negative Negative [facility] Influenza B2 Negative Negative [facility] Influenza A B2 Note See Note [facility] Comment:The St ID NOW In fluenza [...] 2:08 AM EDT 01/01/2025 2:14 AM EDT Generic External Data Provider LAB MICROBIOLOGY - GENERAL ORDERABLES Final Result Performing Organization Address [facility] Co de Phone Number [facility] [address] [place] [phone] * COVID-19 ID NOW (ST) (01/01/2025 2:08 AM EDT) IDNOW SERIAL# [id number] [facility] COVID-19 TEST Negative Negative [facility] COVID-19 NOTE See Note [facility] Comment: Results are for the identification of SARS-CoV2 RNA. TheSARS-CoV2 RNA is generally detectable in respiratory samplesduring the acute phase of infection. Positive results areindicative of the presence of SARS-CoV-2 RNA; clinicalcorrelation with patient history and other diagnosticinformation is necessary to determine patient infectionstatus. Positive results do not rule out bacterial infectionor co- infection with other viruses.Testing facilities within the [facility] [place] and [facility] are required to report all positive results [...] use by authorized laboratories.Testing performed on the [employer] ID NOW utilizing NAAT. 01/01/2025 2:08 AM EDT 01/01/2025 2:14 AM EDT us Generic External Data Provider LAB MOLECULAR NILDA GNOSTICS ORDERABLES Final Result [facility] [address] [place] [phone] from Last 3 Months Insurance [facility] C3 Care Teams Roller Mill Tender Relationship Specialty Start Date End Date Rustam Mackenzie MD [address] [place] [phone] PCP - General Internal Medicine 09/11/24
--- OUTSIDE RECORDS SUMMARY | 2025-03-12 13:50 | XMS_ITS | Encounter Summary ---
Author Organization [employer] Address [address] [facility] [address] [place] [address] Care Team Providers Care Medart Operator Name Role Phone Rustam Mackenzie MD Primary Care Prov ider Encounter Details Date Type Department Care Team (Latest Contact Info) Description 02/09/2025 Results Follow-Up [facility] [address] [place] [address] Gerson Bangura MD [address] [place] [address] Stool - Gastrointestinal panel Social History Tobacco Use Types Packs/Day Years [...] documented as of this encounter Care Teams Medart Operator Relationship Specialty Start Date End Date Rustam Mackenzie MD [address] [place] [phone] PCP - General Internal Medicine 09/11/24 documented as of this encounter
== END ==
LOC: HO.CARD 13:46
PROVIDERS: PCP Internal Medicine; Visit Provider Internal Medicine
DX: R06.09 Other forms of dyspnea (principal); R60.0 Localized edema; R00.0 Tachycardia, unspecified
CPT/HCPCS: 93306

== ENCOUNTER → 2025-03-12 13:49 | Outpatient (BNV) | payer MEDICAID, SELFPAY | PROVIDERS: PCP Internal Medicine; Visit Provider Internal Medicine Cardiovascular Disease | DX: R06.09 Other forms of dyspnea (principal); R60.0 Localized edema | CPT/HCPCS: 93306 ==